=== PATIENT | male | born 1975 | race African-American/Black ===

== ENCOUNTER 2018-12-02 08:02 | Inpatient (IN) | payer OTHER ==
[2018-12-01 12:15] LABS: BASOPHILS % 0.3 % (0.0-1.0); HEMATOCRIT 41.2 % (38.2-49.6); HEMOGLOBIN 13.2 g/dL (14.0-18.0); LYMPHOCYTES # (AUTO) 0.5 (1.0-3.2); LYMPHOCYTES % 4.4 % (18.0-39.1); MEAN CORPUSCULAR HEMOGLOBIN 26.3 pg (28-32); MEAN CORPUSCULAR VOLUME 82.2 fL (81-99); MONOCYTES # (AUTO) 0.2 (0.2-0.8); MONOCYTES % 2.1 % (4.4-11.3); NEUTROPHILS # (AUTO) 9.6 (2.1-6.9); NEUTROPHILS % 92.7 % (38.7-80.0); PLATELET COUNT 215 x10e3/uL (140-360); RED BLOOD COUNT 5.01 x10e6/uL (4.3-5.7)
[~2018-12-02] VITALS: Ht 167.6 cm; Wt 70.1 kg
[~2018-12-02 08:02] MED LIST: BACITRACIN 50,000 UNIT VIAL ONE; CARVEDILOL25 MG PO; NORCO 10-325 T1 EACH PO; PANTOPRAZOLE SO40 MG PO; PREDNISONE20 MG PO; ROPIVACAINE 246.25 MG, EPINEPHRINE HCL 1:1000 1ML 0.5 MG, CLONIDINE HCL 0.08 MG, KETORO... INJ ONE; SODIUM CHLORIDE 0.9% 500ML 500 ML ONE; TRANEXAMIC ACID 1,000 MG/10 ML ML ONE; VANCOMYCIN HCL 500 MG ONE
--- OUTSIDE RECORDS SUMMARY | 2018-12-02 08:04 | XMS REPORT | Clinical Summary ---
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 Name Role Phone PCP Unavailable Allergies No Known Allergies Medications No known medications Active Problems Problem Noted Date Left hip pain 08/08/2018 Avascular necrosis of bones of both hips 08/08/2018 Discoid lupus erythematosus 10/23/2017 Tobacco abuse Hyperlipidemia Encounters Care Team Description Date Type Specialty Jarred Villalta MD Left hip pain (Primary Dx); Avascular necrosis of bones of both hips 08/08/2018 Emergency Emergency Medicine after 12/01/2017 Family History Medical History Relation Name Comments Diabetes type II Mother Hypertension Mother Relation Name Status Comments Mother Social History Date Tobacco Use Types Packs/Day Years Used Current Every Day Smoker Cigarettes 0.1 5 Smokeless Tobacco: Never Used Tobacco Cessation: Ready to Quit: No; Counseling Given: Yes Comments: 1 pack per week Alcohol Use Drinks/Week oz/Week Comments No Sex Assigned at Date Recorded Not on file Industry Job Start Date Occupation Not on file Not on file Not on file Travel End Travel History Travel Start No recent travel history available. Last Filed Vital Signs Time Taken Vital Sign Reading 08/08/2018 9:37 PM CDT Blood Pressure 161/103 08/08/2018 9:37 PM CDT Pulse 65 08/08/2018 4:54 PM CDT Temperature 37.1 C (98.7 F) 08/08/2018 9:37 PM CDT Respiratory Rate 18 08/08/2018 9:37 PM CDT Oxygen Saturation 100% - Inhaled Oxygen - Concentration - Weight - - Height - - Body Mass Index - Plan of Treatment Health Maintenance Due Date Last Done Comments IMM Influenza Seasonal 07/28/2018 Oct to December (>/=19 yrs) Procedures Comments Procedure Name Priority Date/Time Associated Diagnosis XRAY HIP UNILATERAL 2/3 STAT 08/08/2018 Left hip pain VIEWS 7:14 PM CDT after 12/01/2017 Results * XRAY HIP UNILATERAL 2/3 VIEWS (08/08/2018 7:14 PM CDT) Impressions Performed At IMPRESSION: SMS 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 Signed By: Carlyn Ogden MD, 08/08/2018 7:22 PM Narrative Performed At EXAM:XRAY HIP UNILATERAL 2/3 VIEWS [facility] DATE:08/08/2018 7:14 PM INDICATION:severe left hip pain in patient on chronic prednisone COMPARISON:None DISCUSSION: There is loss of the hip joint space with sclerosis and partial collapse of the femoral head. No significant osteophyte formation. Sclerosis of the left acetabulum. There is collapse of the right femoral head. No acute fracture or dislocation. Procedure Note Interface, Rad/Mammog In - 08/08/2018 7:27 PM CDT EXAM:XRAY HIP UNILATERAL 2/3 VIEWS DATE:08/08/2018 7:14 PM INDICATION:severe left hip pain in patient on chronic prednisone COMPARISON:None DISCUSSION: There is loss of the hip joint space with sclerosis and partial collapse of the femoral head. No significant osteophyte formation. Sclerosis of the left acetabulum. There is collapse of the right femoral head. No acute fracture or dislocation. IMPRESSION IMPRESSION: 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 Signed By: Carlyn Ogden MD, 08/08/2018 7:22 PM Performing Organization Address City/State/Zipcode Phone Number [facility] after 12/01/2017 Insurance Type Payer Benefit Subscriber ID Effective Phone Address Plan / Dates Group [facility] xxxxxxxxx 2012-P [phone] [address] [facility] [id number] [place] [address]
--- OUTSIDE RECORDS SUMMARY | 2018-12-02 08:05 | XMS REPORT | Clinical Summary ---
Author Author RAVI [facility] Address Unknown Phone Unavailable Care Team Providers Care Support Teacher Name Role Phone Pcp, No PCP Unavailable Allergies No Known Allergies Medications End Date Status Medication Sig Dispensed Refills Start Date Active HYDROcodone-acetaminophen Take 1 tablet 0 (NORCO 10-325) 10-325 mg by mouth per tablet every 6 (six) hours as needed for Pain. Active hydrOXYzine (ATARAX) 25 Take 25 mg by 0 MG tablet mouth every 4 (four) hours as needed for Itching. Active lisinopril Take 40 mg by 0 (PRINIVIL,ZESTRIL) 40 MG mouth daily. tablet Active pantoprazole (PROTONIX) Take 40 mg by 0 40 MG tablet mouth daily. Active predniSONE (DELTASONE) 20 Take 20 mg by 0 MG tablet mouth daily Dose confirmed and verified with the patient.. Active carvedilol (COREG) 25 MG Take 25 mg by 0 tablet mouth 2 (two) 8 times daily with breakfast and dinner . Active DULoxetine (CYMBALTA) 30 Take 30 mg by 0 MG capsule mouth daily . 8 Active zolpidem (AMBIEN) 10 mg 10 mg every 0 tablet night as 8 needed . Active ALPRAZolam (XANAX) 2 MG Take 2 mg by 0 tablet mouth every night as needed for Anxiety . 01/21/2018 nystatin-triamcinolone Apply to 15 g 0 (MYCOLOG II) 100,000-0.1 affected area 7 unit/g-% cream daily. 08/22/2018 Discontinued predniSONE (DELTASONE) 20 Take 2 14 tablet 0 MG tablet tablets (40 7 mg total) by mouth daily. 06/29/2018 ibuprofen (ADVIL,MOTRIN) Take 1 tablet 21 tablet 0 800 MG tablet (800 mg 8 total) by mouth 3 (three) times daily for 10 days. 09/21/2018 acetaminophen (TYLENOL) Take 2 30 tablet 0 325 MG tablet tablets (650 8 mg total) by mouth every 4 (four) hours as needed for Fever (greater than 100.4F) for up to 30 days. 09/22/2018 aspirin 325 MG EC tablet Take 1 tablet 30 tablet 0 (325 mg 8 total) by mouth daily for 30 days. 09/01/2018 docusate sodium (COLACE) Take 1 20 capsule 0 100 MG capsule capsule (100 8 mg total) by mouth 2 (two) times daily for 10 days. 09/06/2018 methocarbamol (ROBAXIN) Take 1 tablet 60 tablet 0 500 MG tablet (500 mg 8 total) by mouth 4 (four) times daily for 15 days. 09/22/2018 multivitamin (THERAGRAN) Take 1 tablet 30 tablet 0 tablet by mouth 8 daily for 30 days. 09/11/2018 traMADol (ULTRAM) 50 mg Take 1 tablet 60 tablet 0 tablet (50 mg total) 8 by mouth every 6 (six) hours as needed for up to 20 days. 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 Chest pain 12/08/2015 Non-traumatic rhabdomyolysis 12/08/2015 Discoid lupus 06/05/2014 Hemoptysis 05/28/2014 Tobacco abuse 05/28/2014 Seizure disorder 05/28/2014 Rash 05/28/2014 Encounters Care Team Description Date Type Specialty Juan Alberto Fonseca MD Bilateral shoulder pain, unspecified chronicity (Primary Dx) 09/22/2018 Outside Orders Radiology Shelton Becerra MD 08/19/2018 Anesthesia Event FlakitaLorene keller MD REVISION,TOTAL HIP 08/19/2018 Surgery Koby Mccollum MD [place], Narendra, MD Pain of both hip joints (Primary Dx); Avascular necrosis (HCC); Closed fracture of left hip, initial encounter (HCC); Hematuria, unspecified type; Kidney stone 08/18/2018 Hospital General Internal Medicine - Encounter 08/22/2018 08/18/2018 Orders Only General Internal Medicine Juan Alberto Fonseca MD Low back pain, unspecified back pain laterality, unspecified chronicity, with sciatica presence unspecified 07/28/2018 Hospital Encounter Juan Alberto Fonseca MD Low back pain, unspecified back pain laterality, unspecified chronicity, with sciatica presence unspecified (Primary Dx) 07/25/2018 Outside Orders Central Scheduling Chapin Kim MD Acute pain of both shoulders (Primary Dx); Discoid lupus; Cigarette nicotine dependence with nicotine-induced disorder; Essential hypertension 06/19/2018 Emergency Emergency Medicine Juan Alberto Fonseca MD Low back pain with sciatica, sciatica laterality unspecified, unspecified back pain laterality, unspecified chronicity 03/05/2018 Hospital Radiology Encounter Juan Alberto Fonseca MD Low back pain with sciatica, sciatica laterality unspecified, unspecified back pain laterality, unspecified chronicity (Primary Dx); Left hip pain; Right hip pain 03/05/2018 Outside Orders Radiology 02/19/2018 Emergency Emergency Medicine after 12/01/2017 Family History Medical History Relation Name Comments Hypertension Mother Relation Name Status Comments Mother Social History Date Tobacco Use Types Packs/Day Years Used Current Some Day Smoker Cigarettes 0.5 5 Smokeless Tobacco: Never Used Tobacco Cessation: Ready to Quit: Yes Alcohol Use Drinks/Week oz/Week Comments No Sex Assigned at Date Recorded Not on file Industry Job Start Date Occupation Not on file Not on file Not on file Travel End Travel History Travel Start No recent travel history available. Last Filed Vital Signs Time Taken Vital Sign Reading 08/22/2018 12:00 PM CDT Blood Pressure 135/72 08/22/2018 12:00 PM CDT Pulse 81 08/22/2018 12:00 PM CDT Temperature 36.7 C (98.1 F) 08/22/2018 12:00 PM CDT Respiratory Rate 18 08/22/2018 12:00 PM CDT Oxygen Saturation 100% - Inhaled Oxygen - Concentration 08/18/2018 2:10 PM CDT Weight 74.8 kg (165 lb) 08/18/2018 2:10 PM CDT Height 167.6 cm (5' 6") 08/18/2018 2:10 PM CDT Body Mass Index 26.63 Plan of Treatment Not on file Implants Device Identifier Shelf Expiration Date Model / Serial / Lot Implanted Type Area Manufactur er 05/20/2023 1420-1087 / N/A / 7DN Scr Low Profile 6.5x25mm [id number] Fracture/F Left: Hip LULU:ST - Sn/A ixation CARLOS EDUARDO Implanted: Qty: 1 on 08/19/2018 by Lorene Lozano MD 05/20/2023 [id number] / N/A / 7DN Scr Low Profile 6.5x25mm [id number] Fracture/F Left: Hip LULU:ST - Sn/A ixation CARLOS EDUARDO Implanted: Qty: 1 on 08/19/2018 by Lorene Lozano MD 06/18/2023 702-04-52E / N/A / [id number] Trident Ii Tri Clusterhole 52e Joints Left: Hip LULU 702-04-52e - Sn/A ORTHO CAP Implanted: Qty: 1 on 08/19/2018 by Lorene Boggs MD 07/01/2023 623-00-36E / N/A / [id number] Insrt Trident X3 0deg 36mm Joints Left: Hip LULU:ST 623-00-36e - Sn/A CARLOS EDUARDO Implanted: Qty: 1 on 08/19/2018 by Lorene Lozano MD 05/19/2023 6570-0-136 / N/A / [id number] Head Fem Ceramic V40 36mm Joints Left: Hip LULU:ST 6570-0-136 - Sn/A CARLOS EDUARDO Implanted: Qty: 1 on 08/19/2018 by Lorene Lozano MD 06/22/2023 [id number] / N/A / [id number] Hip Stem Accolade Ii 127d 5 - Sn/A Joints Left: Hip LULU:ST Implanted: Qty: 1 on 08/19/2018 by Lorene Khalil MD ORTHOPAEDI CS Procedures Comments Procedure Name Priority Date/Time Associated Diagnosis RHYTHM STRIP - SCAN 08/25/2018 1:30 PM CDT TRANSFUSION SERVICE 08/24/2018 REPORT - SCAN 5:50 PM CDT PREPARE RBC Routine 08/22/2018 3:26 PM CDT CBC (HEMOGRAM ONLY) Routine 08/22/2018 5:12 AM CDT (CELLAVISION MANUAL DIFF) Routine 08/21/2018 3:37 AM CDT CBC W/PLT COUNT & AUTO Routine 08/21/2018 DIFFERENTIAL 3:37 AM CDT CBC W/PLT COUNT & AUTO Routine 08/21/2018 DIFFERENTIAL 3:37 AM CDT BASIC METABOLIC PANEL (7) Routine 08/21/2018 3:37 AM CDT TRANSTHORACIC ECHO FOR Routine 08/20/2018 RESULTS 8:49 PM CDT TRANSFUSION SERVICE 08/20/2018 REPORT - SCAN 6:02 PM CDT CBC W/PLT COUNT & AUTO Routine 08/20/2018 DIFFERENTIAL 3:31 AM CDT CBC W/PLT COUNT & AUTO Routine 08/20/2018 DIFFERENTIAL 3:31 AM CDT BASIC METABOLIC PANEL (7) Routine 08/20/2018 3:31 AM CDT XR PELVIS 1 OR 2 VIEWS STAT 08/19/2018 3:42 PM CDT XR PELVIS 1 OR 2 VIEWS Routine 08/19/2018 1:47 PM CDT TISSUE EXAM AP Routine 08/19/2018 1:24 PM CDT REVISION,TOTAL HIP 08/19/2018 Closed fracture of left 12:15 PM CDT hip, initial encounter (HCC) Special Needs REQ:TF OTHER CASES TYPE AND SCREEN, Routine 08/19/2018 AUTOMATED 4:43 AM CDT ECG 12-LEAD Routine 08/18/2018 6:04 PM CDT Procedure Note - Interface, External Ris In - 08/18/2018 7:02 PM CDT Ventricula r Rate 74 BPM Atrial Rate 74 BPM P-R Interval 114 ms QRS Duration 80 ms Q-T Interval 384 ms QTC Calculatio n(Bazett) 426 ms P [place] 58 degrees R [place] 41 degrees T [place] 32 degrees Normal sinus rhythm Normal ECG When compared with ECG of 6 07:36, No significan t change was found ECG 12-LEAD STAT 08/18/2018 6:04 PM CDT 2D ECHO W/ DOPPLER Routine 08/18/2018 (CW/PW/COLOR) 5:50 PM CDT XR CHEST 1 VIEW STAT 08/18/2018 PORTABLE/BEDSIDE 5:45 PM CDT PT/APTT STAT 08/18/2018 4:[address] ABDOMEN/PELVIS WITHOUT STAT 08/18/2018 IV CONTRAST 4:01 PM CDT URINALYSIS W/ REFLEX STAT 08/18/2018 URINE CULTURE 3:15 PM CDT URINE CULTURE STAT 08/18/2018 3:15 PM CDT CBC W/PLT COUNT & AUTO STAT 08/18/2018 DIFFERENTIAL 2:51 PM CDT BASIC METABOLIC PANEL (7) STAT 08/18/2018 2:51 PM CDT CBC W/PLT COUNT & AUTO STAT 08/18/2018 DIFFERENTIAL 2:51 PM CDT XR DXA BONE DENSITY STUDY Routine 07/28/2018 Low back pain, 9:42 AM CDT unspecified back pain laterality, unspecified chronicity, with sciatica presence unspecified XR SHOULDER RIGHT STAT 06/19/2018 COMPLETE MIN 2 VWS 1:12 PM CDT XR SHOULDER LEFT COMPLETE STAT 06/19/2018 MIN 2 VIEWS 1:07 PM CDT XR HIP RIGHT 2 VIEW Routine 03/05/2018 Right hip pain 12:21 PM CDT XR SPINE LUMBAR COMPLETE Routine 03/05/2018 MIN 4 VIEWS 12:21 PM CDT XR HIP LEFT 2 VIEW Routine 03/05/2018 Left hip pain 12:21 PM CDT after 12/01/2017 Results * RHYTHM STRIP - SCAN (08/25/2018 1:30 PM CDT) Narrative Performed At * TRANSFUSION SERVICE REPORT - SCAN (08/24/2018 5:50 PM CDT) Only the most recent of 2 results within the time period is included. Narrative Performed At * Prepare RBC (08/22/2018 3:26 PM CDT) Unit ABO O Pos [facility] [place] UNIT NUMBER [id number] [facility] [place] Status WORK IN PROGRESS [facility] [place] Blood Bank Product RED BLOOD CELLS [facility] [place] PRODUCT CODE [id number] [facility]AFET[facility] TX Unit ABO O Neg SAFETRACE TX UNIT NUMBER [id number] [facility] TX Status WORK IN PROGRESS [facility]ET[facility] TX Blood Bank Product RED BLOOD CELLS [facility] [place] PRODUCT CODE [id number] [facility] CROSSMATCH COMPATIBLE S[facility]ETR[facility] TX CROSSMATCH COMPATIBLE SAFETRACE TX Performing Organization Address City/State/[facility] Phone Number [facility] [place] * CBC (Hemogram only) (08/22/2018 5:12 AM CDT) WBC 12.0 (H) 3.5 - 10.5 K/L [facility] RBC 3.57 (L) 4.63 - 6.08 M/L [facility] Hemoglobin 9.9 (L) 13.7 - 17.5 GM/DL [facility] Hematocrit 30.7 (L) 40.1 - 51.0 % [facility] MCV 86.0 79.0 - 92.2 fL [facility] MCH 27.7 25.7 - 32.2 pg [facility] MCHC 32.2 (L) 32.3 - 36.5 GM/DL [facility] RDW 13.4 11.6 - 14.4 % [facility] Platelets 263 150 - 450 K/CU MM [facility] MPV 9.5 9.4 - 12.4 fL [facility] nRBC 0 0 - 0 /100 WBC [facility] Specimen Blood Performing Organization Address City/State/Zipcode Phone Number [facility] [address] [place] [address] [facility] * Manual Differential (08/21/2018 3:37 AM CDT) % Neutros 79 % [facility] % Lymphs 15 % [facility] % Monos 5 % [facility] % Atypical Lymphs 1 (H) 0 - 0 % [facility] # Neutros 9.24 (H) 1.78 - 5.38 K/ul [facility] # Lymphs 1.76 1.32 - 3.57 K/ul [facility] # Monos 0.59 0.30 - 0.82 K/uL [facility] # Atypical Lymphs 0.12 (H) 0.00 - 0.00 K/uL [facility] Total Counted 100 [facility] nRBC (manual) 2 (H) 0 - 0 /100 WBC [facility] WBC Morphology Normal [facility] Large Platelet Present [facility] Polychromasia 1+ few [facility] Hypochromia 1+ few [facility] Artifact Present [facility] Platelet Conc Adequate [facility] Specimen Blood - Arm, Right Narrative Performed At Received comment: [facility] User comments: [facility] Slide comments: Performing Organization Address City/[facility] Cent[facility] Phone Number [facility] [address] [place] [address] [facility] * CBC with platelet count + automated diff (08/21/2018 3:37 AM CDT) Only the most recent of 3 results within the time period is included. WBC 11.7 (H) 3.5 - 10.5 K/L [facility] RBC 3.45 (L) 4.63 - 6.08 M/L [facility] Hemoglobin 9.5 (L) 13.7 - 17.5 GM/DL [facility] Hematocrit 29.8 (L) 40.1 - 51.0 % [facility] MCV 86.4 79.0 - 92.2 fL [facility] MCH 27.5 25.7 - 32.2 pg [facility] MCHC 31.9 (L) 32.3 - 36.5 GM/DL [facility] RDW 13.5 11.6 - 14.4 % [facility] Platelets 234 150 - 450 K/CU MM [facility] MPV 9.1 (L) 9.4 - 12.4 fL [facility] nRBC 0 0 - 0 /100 WBC [facility] Specimen Blood - Arm, Right Performing Organization Address City/[facility]/Zipcode Phone Number [facility] [address] [place] [address] [facility] * Basic Metabolic Panel (08/21/2018 3:37 AM CDT) Only the most recent of 3 results within the time period is included. Sodium 139 136 - 145 meq/L [facility] Potassium 4.1 3.5 - 5.1 meq/L [facility] Chloride 108 (H) 98 - 107 meq/L [facility] CO2 25 22 - 29 meq/L [facility] BUN 11 7 - 21 mg/dL [facility] Creatinine 0.78 0.57 - 1.25 mg/dL [facility] Glucose 86 70 - 105 mg/dL [facility] Calcium 9.3 8.4 - 10.2 mg/dL [facility] EGFR 132Comment: ESTIMATED GFR IS mL/min/1.[address] [facility] NOT ACCURATE CREATININE [facility] CLEARANCE IN PREDICTING GLOMERULAR FILTRATION RATE. ESTIMATED GFR IS NOT APPLICABLE FOR DIALYSIS PATIENTS. Specimen Blood - Arm, Right Performing Organization Address City/State/Zipcode Phone Number [facility] [address] [place] [address] [facility] * Transthoracic echo result (08/20/2018 8:49 PM CDT) Ejection Fraction [facility] ECHO HEART[facility] Narrative Performed At Transthoracic Echocardiography Report (TTE) [facility] ECHO [facility]ARTLAB Demographics [facility] Patient Name RACHAEL Vera Date of Study 08/20/2018 [id number] Male Visit Number [id number] Room Number Number Date of Birth1975Referring Physician 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 Clinical History HGB 10.5 HCT 32.3 % HTN, LUPUS, SEIZURES, THROMBCYTOPENIA, SMOKER Height: 66 inches Weight: 74.84 kg (165 lbs) BSA: 1.84 m^2 BMI: 26.63 kg/m^2 HR: 71 bpm BP: 106/64 mmHg Summary The left ventricle is chamber size (by vol index) is normal (male - LVED vol - 34-74ml/m2). Normal LV wall thickness. All of the LV segments contract normally . Global LV systolic function normal . Normal diastolic function. Estimated peak systolic pressure is at least 30-35 mmHg. No significant pericardial effusion is visualized. Signature Findings Rhythm/BPRegular sinus rhythm during the exam. Left Ventricle The left ventricle is chamber size (by vol index) is normal (male - LVED vol - 34-74ml/m2). Normal LV wall thickness. All of the LV segments contract normally . Global LV systolic function normal . Normal diastolic function. Left AtriumLA size is normal . Right VentricleThe right ventricular chamber size and systolic function are within normal limits. Right Atrium RA size is normal. Atrial SeptumA patent foramen ovale (PFO) is not demonstrated by color Doppler. Normal interatrial septum by available views. Aortic Valve Normal AoV structure and function by limited views and Doppler. Mitral Valve Mild MV leaflet thickening. Trace mitral regurgitation. Tricuspid ValveTV structure is normal. A trace of tricuspid regurgitation. Estimated peak systolic pressure is at least 30-35 mmHg. Pulmonic Valve Normal PV structure and function by limited views and Doppler. AortaAortic root size (SInus of Valsalva diameter) is normal . The aortic sinotubular junction appears normal . PericardiumNo significant pericardial effusion is visualized. IVC/SVC/PA/PV/PleuralThe inferior vena cava size is normal . The estimated RA pressure by IVC dynamics 5-10mmHg . Chambers/Structures Left Atrium LA Volume: 54.71 ml LA Area: 21.37 cm^2 LA Vol. Index: 30 ml/m^2 Left Ventricle LVIDd: 4.19 cm LVIDs: 3.3 cm LV Septum Diastolic: 0.82 cm LV Septum Systolic: 1.13 cm LV FS: 21.2 % LV PW Diastolic: 0.92 cm LV PW Systolic: 1.02 cm LVEDVI: 38 ml/m^2 LVEDV [place]'s:69.51 mlLVESVI: 13 ml/m^2 LVESV [place]'s:23.36 ml LVEF [place]'s: 66.4 % LVOT Diameter: 2.13 cm Aorta Ascending Aorta: 2.96 cm Doppler/Quantitative Measurements Mitral Valve MV Peak E-Wave: 0.96 m/s MV Peak A-Wave: 0.76 m/s E/A Ratio: 1.27 Mean Velocity: 0.58 m/sPeak Gradient: 3.71 mmHg Mean Gradient: 1.58 mmHg Deceleration Time: 300.9 msec Area (continuity): 2.54 cm^2 MV VTI: 28.78 cm MV Ko. Peak: 1.07 m/s Tissue Doppler E' Septal Velocity: 0.1 m/sE/E': 9.9 Aortic Valve Peak Velocity: 1.58 m/sMean Velocity: 1.1 m/s Peak Gradient: 10 mmHg Mean Gradient: 5.45 mmHg AV Area (continuity): 2.68 cm^2 AV VTI: 27.28 cm AV DVI: 0.75 LVOT Peak Velocity: 1.23 m/s Peak Gradient: 6.08 mmHg Mean Velocity: 0.76 m/s Mean Gradient: 2.81 mmHg LVOT Diameter: 2.13 cmLVOT VTI: 20.55 cm LVOT Area: 3.56 cm^2LVOT SV:73.19 ml LVOT CO: 5.2 l/minLVOT CI: 2.83 l/min/m^2 Tricuspid Valve TR Velocity: 2.45 m/s TR Gradient: 24.04 mmHg Procedure Note Interface, External Ris In - 08/22/2018 11:39 AM CDT Transthoracic Echocardiography Report (TTE) Demographics Patient Name RACHAEL Vera Date of Study 08/20/2018 Gender Male Visit Number [id number] Race Unknown Room Number Number Date of 1975 Referring Physician Age 43 year(s) [employer] Caleb Aleman Interpreting Wilmer Diego, Physician Fellow Aimee ROSS Procedure Type of Study TTE procedure(Routine) Indications:Suspected hypertensive heart disease. Clinical History HGB 10.5 HCT 32.3 % HTN, LUPUS, SEIZURES, THROMBCYTOPENIA, SMOKER Height: 66 inches Weight: 74.84 kg (165 lbs) BSA: 1.84 m^2 BMI: 26.63 kg/m^2 HR: 71 bpm BP: 106/64 mmHg Summary The left ventricle is chamber size (by vol index) is normal (male - LVED vol - 34-74ml/m2). Normal LV wall thickness. All of the LV segments contract normally . Global LV systolic function normal . Normal diastolic function. Estimated peak systolic pressure is at least 30-35 mmHg. No significant pericardial effusion is visualized. Signature Findings Rhythm/BP Regular sinus rhythm during the exam. Left Ventricle The left ventricle is chamber size (by vol index) is normal (male - LVED vol - 34-74ml/m2). Normal LV wall thickness. All of the LV segments contract normally . Global LV systolic function normal . Normal diastolic function. Left Atrium LA size is normal . Right Ventricle The right ventricular chamber size and systolic function are within normal limits. Right Atrium RA size is normal. Atrial Septum A patent foramen ovale (PFO) is not demonstrated by color Doppler. Normal interatrial septum by available views. Aortic Valve Normal AoV structure and function by limited views and Doppler. Mitral Valve Mild MV leaflet thickening. Trace mitral regurgitation. Tricuspid Valve TV structure is normal. A trace of tricuspid regurgitation. Estimated peak systolic pressure is at least 30-35 mmHg. Pulmonic Valve Normal PV structure and function by limited views and Doppler. Aorta Aortic root size (SInus of Valsalva diameter) is normal . The aortic sinotubular junction appears normal . Pericardium No significant pericardial effusion is visualized. IVC/SVC/PA/PV/Pleural The inferior vena cava size is normal . The estimated RA pressure by IVC dynamics 5-10mmHg . Chambers/Structures Left Atrium LA Volume: 54.71 ml LA Area: 21.37 cm^2 LA Vol. Index: 30 ml/m^2 Left Ventricle LVIDd: 4.19 cm LVIDs: 3.3 cm LV Septum Diastolic: 0.82 cm LV Septum Systolic: 1.13 cm LV FS: 21.2 % LV PW Diastolic: 0.92 cm LV PW Systolic: 1.02 cm LVEDVI: 38 ml/m^2 LVEDV [place]'s:69.51 ml LVESVI: 13 ml/m^2 LVESV [place]'s:23.36 ml LVEF [place]'s: 66.4 % LVOT Diameter: 2.13 cm Aorta Ascending Aorta: 2.96 cm Doppler/Quantitative Measurements Mitral Valve MV Peak E-Wave: 0.96 m/s MV Peak A-Wave: 0.76 m/s E/A Ratio: 1.27 Mean Velocity: 0.58 m/s Peak Gradient: 3.71 mmHg Mean Gradient: 1.58 mmHg Deceleration Time: 300.9 msec Area (continuity): 2.54 cm^2 MV VTI: 28.78 cm MV Ko. Peak: 1.07 m/s Tissue Doppler E' Septal Velocity: 0.1 m/s E/E': 9.9 Aortic Valve Peak Velocity: 1.58 m/s Mean Velocity: 1.1 m/s Peak Gradient: 10 mmHg Mean Gradient: 5.45 mmHg AV Area (continuity): 2.68 cm^2 AV VTI: 27.28 cm AV DVI: 0.75 LVOT Peak Velocity: 1.23 m/s Peak Gradient: 6.08 mmHg Mean Velocity: 0.76 m/s Mean Gradient: 2.81 mmHg LVOT Diameter: 2.13 cm LVOT VTI: 20.55 cm LVOT Area: 3.56 cm^2 LVOT SV:73.19 ml LVOT CO: 5.2 l/min LVOT CI: 2.83 l/min/m^2 Tricuspid Valve TR Velocity: 2.45 m/s TR Gradient: 24.04 mmHg Performing Organization Address City/State/Zipcode Phone Number [facility] ECHO HEART[facility] CP[facility] * XR pelvis 1 or 2 views (08/19/2018 3:42 PM CDT) Only the most recent of 2 results within the time period is included. Narrative Performed At FINAL REPORT GE RIS TECHNIQUE: Frontal radiographs of the pelvis as well as the left hip dated 08/19/2018 HISTORY: Postop total hip COMPARISON: Radiograph of the pelvis performed earlier the same day Impression: The patient is status post total left hip arthroplasty with post surgical fluid and air seen in the soft tissues. Severe degenerative changes of the right femoral head are visualized. No fracture or dislocation. Bones osteopenia for patient's stated age. Signed: Mell Law MD Report Verified Date/Time:08/19/2018 16:04:24 Reading Location: [facility] Radiology Reading Room Procedure Note Interface, External Ris In - 08/19/2018 4:06 PM CDT FINAL REPORT TECHNIQUE: Frontal radiographs of the pelvis as well as the left hip dated 08/19/2018 HISTORY: Postop total hip COMPARISON: Radiograph of the pelvis performed earlier the same day Impression: The patient is status post total left hip arthroplasty with post surgical fluid and air seen in the soft tissues. Severe degenerative changes of the right femoral head are visualized. No fracture or dislocation. Bones osteopenia for patient's stated age. Signed: Mell Law MD Report Verified Date/Time: 08/19/2018 16:04:24 Reading Location: [facility] Radiology Reading Room Performing Organization Address City/State/Zipcode Phone Number RIS * Tissue Exam (08/19/2018 1:24 PM CDT) Case Report Surgical Pathology [facility] Report [facility] Case: [id number] Authorizing Provider:Lorene Boggs, Collected: 08/19/2018 1324 MD Ordering Location: [facility] PERIOPERATIVE Received: 08/19/2018 1453 SERVICES Pathologist: Juan Carlos Isaac MD Specimen:Femoral Head,Left Hip DIAGNOSIS PART A LEFT FEMORAL HEAD, [facility] ARTHROPLASTY FOR FRACTURE: [facility] DEGENERATIVE, PARTIALLY NECROTIC CHANGES IN BONE AND CARTILAGE. REACTIVE SYNOVIAL TISSUE. Signing Pathologist Direct Phone Line: [phone] CPT Code(s) 29073, [id number] [facility] CLINICAL HISTORY Left hip fracture [facility] SPECIMEN SOURCE Left femoral head [facility] GROSS DESCRIPTION The specimen is received in a [facility] fluidless container labeled [facility] with patient's information labeled "left femoral head" and consists of a distorted taylor-red femoral head measuring 4 x 3 x 3 cm. The base is sharply amputated. The articular surface has distinct osteophyte formation and pitting with eburnation. The specimen is flattened. Section code: A1 and A3, bone submitted for decalcification; A4, soft tissue and bone submitted for decalcification. CG/pl MICROSCOPIC DESCRIPTION PERFORMED. [facility] Specimen Tissue - Femoral Head,Left Hip Performing Organization Address [facility] Cent[facility]ode Phone Number [address] [address] [phone] [place] [address] * Type and screen, automated (08/19/2018 4:43 AM CDT) ABO/RH AUTOMATED (BEAKER) O POSITIVE [facility] Ab Scrn NEGATIVE [facility] Specimen Blood Performing Organization Address City/[facility]/Zipcode Phone Number [address] [address] [facility] * ECG 12 lead (08/18/2018 6:04 PM CDT) Narrative Performed At Ventricular Rate 74 BPM GE MUSE Atrial Rate 74 BPM P-R Interval 114 ms QRS Duration 80 ms Q-T Interval 384 ms QTC Calculation(Bazett) 426 ms P [place] 58 degrees R [place] 41 degrees T [place] 32 degrees Normal sinus rhythm Normal ECG When compared with ECG of 08-DEC-2015 07:36, No significant change was found Confirmed by Freida TERRELL MICHAEL ([id number]) on 08/18/2018 10:17:45 PM Procedure Note Interface, External Ris In - 08/18/2018 10:17 PM CDT Ventricular Rate 74 BPM Atrial Rate 74 BPM P-R Interval 114 ms QRS Duration 80 ms Q-T Interval 384 ms QTC Calculation(Bazett) 426 ms P [place] 58 degrees R [place] 41 degrees T [place] 32 degrees Normal sinus rhythm Normal ECG When compared with ECG of 08-DEC-2015 07:36, No significant change was found Confirmed by Freida TERRELL MICHAEL ([id number]) on 08/18/2018 10:17:45 PM Performing Organization Address City/[facility] Phone Number GE MUSE * XR chest 1 view portable / bedside (08/18/2018 5:45 PM CDT) Narrative Performed At FINAL REPORT GE RIS TECHNIQUE: Single view of the chest. COMPARISON: 02/03/2016 FINDINGS: The cardiac silhouette is within normal limits.Mediastinum is unremarkable. Lungs are clear.Osseous structures appear unremarkable. Irving project over the right neck presumably external to the patient. IMPRESSION: No acute cardiopulmonary disease. Signed: Shiraz Wong MD Report Verified Date/Time:08/18/2018 18:44:14 Reading Location: [facility] Reading Room Procedure Note Interface, External Ris In - 08/18/2018 6:46 PM CDT FINAL REPORT TECHNIQUE: Single view of the chest. COMPARISON: 02/03/2016 FINDINGS: The cardiac silhouette is within normal limits. Mediastinum is unremarkable. Lungs are clear. Osseous structures appear unremarkable. Irving project over the right neck presumably external to the patient. IMPRESSION: No acute cardiopulmonary disease. Signed: Shiraz Wong MD Report Verified Date/Time: 08/18/2018 18:44:14 Reading Location: [facility] Mammo Reading Room Performing Organization Address City/[facility] Centercooh Phone Number GE RIS * PT/aPTT (08/18/2018 4:40 PM CDT) [facility] 14.8 (H) 11.7 - 14.7 seconds [facility] INR 1.2 <=5.9 [facility] PTT 32.3 22.5 - 36.0 seconds [facility] Specimen Blood Narrative Performed At RECOMMENDED COUMADIN/WARFARIN INR THERAPY RANGES [facility] STANDARD DOSE: 2.0 - 3.0 Includes: PROPHYLAXIS for venous thrombosis, [facility] systemic embolization; TREATMENT for venous thrombosis and/or pulmonary embolus. HIGH RISK: Target INR is 2.5-3.5 for patients with mechanical heart valves. Performing Organization Address City/State/Zipcode Phone Number [facility] [address] [place] [address] [facility] * CT abdomen/pelvis without iv contrast (08/18/2018 4:01 PM CDT) Narrative Performed At FINAL REPORT [facility] CT abdomen and pelvis without intravenous contrast. INDICATION: Abdominal pain, unspecified COMPARISON: No prior studies available for comparison. TECHNIQUE: Multiple contiguous transaxial images of the abdomen and pelvis were obtained without intravenous contrast.This exam was performed according to our departmental dose optimization program which includes automated exposure control, adjustment of the mA and/or kV according to patient size and/or use of iterative reconstructive technique. FINDINGS: Lack of intravenous contrast limits evaluation of the parenchymal and vascular organs. The lung bases are clear. The osseous structures demonstrate osteonecrosis of the bilateral femoral heads which appear markedly flattened with hip joint effusions and synovitis. There is superimposed osteoarthritis. There is an age indeterminate fracture of the left femoral head and neck. The unenhanced liver, spleen, pancreas, and adrenal glands are unremarkable. The gallbladder is unremarkable. There is no biliary dilatation. The stomach is underdistended limiting its evaluation. There is a 4 mm stone in the right distal ureter without significant dilatation of the right collecting system. Additional small nonobstructing right renal calculi are seen measuring up to 2 mm in the right lower pole. The urinary bladder is underdistended with questionable wall thickening which can be correlated with urinalysis. There is no bowel obstruction or perforation. There is mild colonic diverticulosis. The appendix appear normal. There are vascular calcifications. There is no fluid collection or lymphadenopathy. IMPRESSION: 1. 4 mm right distal ureteral stone without significant dilatation of the right collecting system. Additional nonobstructing right renal calculi. 2. Wall thickening of the urinary bladder can be correlated with urinalysis. 3. 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 Fracture of the left femoral head and neck. Signed: Cameron Zuñiga MD Report Verified Date/Time:08/18/2018 16:12:06 Reading Location: [facility] Radiology Reading Room Procedure Note Interface, External Ris In - 08/18/2018 4:14 PM CDT FINAL REPORT CT abdomen and pelvis without intravenous contrast. INDICATION: Abdominal pain, unspecified COMPARISON: No prior studies available for comparison. TECHNIQUE: Multiple contiguous transaxial images of the abdomen and pelvis were obtained without intravenous contrast. This exam was performed according to our departmental dose optimization program which includes automated exposure control, adjustment of the mA and/or kV according to patient size and/or use of iterative reconstructive technique. FINDINGS: Lack of intravenous contrast limits evaluation of the parenchymal and vascular organs. The lung bases are clear. The osseous structures demonstrate osteonecrosis of the bilateral femoral heads which appear markedly flattened with hip joint effusions and synovitis. There is superimposed osteoarthritis. There is an age indeterminate fracture of the left femoral head and neck. The unenhanced liver, spleen, pancreas, and adrenal glands are unremarkable. The gallbladder is unremarkable. There is no biliary dilatation. The stomach is underdistended limiting its evaluation. There is a 4 mm stone in the right distal ureter without significant dilatation of the right collecting system. Additional small nonobstructing right renal calculi are seen measuring up to 2 mm in the right lower pole. The urinary bladder is underdistended with questionable wall thickening which can be correlated with urinalysis. There is no bowel obstruction or perforation. There is mild colonic diverticulosis. The appendix appear normal. There are vascular calcifications. There is no fluid collection or lymphadenopathy. IMPRESSION: 1. 4 mm right distal ureteral stone without significant dilatation of the right collecting system. Additional nonobstructing right renal calculi. 2. Wall thickening of the urinary bladder can be correlated with urinalysis. 3. 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 Fracture of the left femoral head and neck. Signed: Cameron Zuñiga MD Report Verified Date/Time: 08/18/2018 16:12:06 Reading Location: [facility] Radiology Reading Room Performing Organization Address City/[facility]/Zipcode Phone Number GE RIS * Urinalysis w/Microscopic + Reflex to Culture (08/18/2018 3:15 PM CDT) Color, UA Yellow [facility] Clarity, UA Hazy [facility] Specific [place], UA 1.018 1.001 - 1.035 [facility] pH, UA 5.5 5.0 - 8.0 [facility] Protein, UA 20 mg/dL (A) Negative [facility] Glucose, UA Negative Negative [facility] Ketones, UA Trace (A) Negative [facility] Bilirubin, UA Negative Negative [facility] Blood, UA Negative Negative [facility] Nitrite, UA Negative Negative [facility] Leukocytes, UA Negative Negative [facility] Urobilinogen, UA 3.0 (H) 0.2 - 1.0 mg/dL [facility] RBC, UA 6 /HPF [facility] WBC, UA 10 /HPF [facility] Mucus Moderate [facility] Crystals, Urine Occasional [facility] Yeast Few [facility] Specimen Source [facility] Specimen Urine - Urine, Voided Performing Organization Address City/[facility]/Zipcode Phone Number [facility] [address] [place] [address] [facility] * Urine culture (08/18/2018 3:15 PM CDT) Result 10-19,000 col/mL [facility] Beta-hemolytic streptococcus [facility] group B, by serological grouping (A) Specimen Urine - Urine, Voided Performing Organization Address City/State/Zipcode Phone Number [facility] [address] [place] [address] [facility] * XR DXA Bone Density Study (07/28/2018 9:42 AM CDT) Narrative Performed At FINAL REPORT [facility] Bone mineral density study 07/28/2018. CLINICAL INDICATION: M54.5. Low back pain COMPARISON: None available FINDINGS: Evaluation of the left and right femoral necks and lumbar spine was performed utilizing a bone densitometer. Data reflect young adult matched T-scores and age-matched Z scores. IMPRESSION: The left femoral neck bone mineral density is 1.030gm/cm2, the T-score is -0.3, and the Z-score is -1.1. The right femoral neck total bone mineral density is 1.080gm/cm2, the T-score is 0.1, and the Z-score is -0.7. The lumbar spine total bone mineral density is 0.898gm/cm2, the T-score is -2.7, and the Z-score is -3.6. This is suggestive of osteoporosis. Signed: Erika Smith MD Report Verified Date/Time:07/28/2018 10:46:13 Reading Location: [facility] Mammo Reading Room Procedure Note Interface, External Ris In - 07/28/2018 10:48 AM CDT FINAL REPORT Bone mineral density study 07/28/2018. CLINICAL INDICATION: M54.5. Low back pain COMPARISON: None available FINDINGS: Evaluation of the left and right femoral necks and lumbar spine was performed utilizing a bone densitometer. Data reflect young adult matched T-scores and age-matched Z scores. IMPRESSION: The left femoral neck bone mineral density is 1.030gm/cm2, the T-score is -0.3, and the Z-score is -1.1. The right femoral neck total bone mineral density is 1.080gm/cm2, the T-score is 0.1, and the Z-score is -0.7. The lumbar spine total bone mineral density is 0.898gm/cm2, the T-score is -2.7, and the Z-score is -3.6. This is suggestive of osteoporosis. Signed: Erika Smith MD Report Verified Date/Time: 07/28/2018 10:46:13 [facility] Performing Organization Address [facility] Phone Number GE RIS * XR shoulder complete 2 views min right (06/19/2018 1:12 PM CDT) Narrative Performed At FINAL REPORT GE RIS TECHNIQUE: Four views of the right shoulder and three views of the left shoulder dated 06/19/2018 HISTORY: Arm pain COMPARISON: None. FINDINGS: No fracture or dislocation in either shoulder. Bones are normal in density. Joint spaces are unremarkable in appearance. No bone erosion or soft tissue nodule seen. No radiodense foreign body or subcutaneous emphysema. IMPRESSION: No fracture or dislocation in either shoulder. Signed: Mell Law MD Report Verified Date/Time:06/19/2018 13:27:48 Reading Location: [facility] Radiology Reading Room Procedure Note Interface, External Ris In - 06/19/2018 1:30 PM CDT FINAL REPORT TECHNIQUE: Four views of the right shoulder and three views of the left shoulder dated 06/19/2018 HISTORY: Arm pain COMPARISON: None. FINDINGS: No fracture or dislocation in either shoulder. Bones are normal in density. Joint spaces are unremarkable in appearance. No bone erosion or soft tissue nodule seen. No radiodense foreign body or subcutaneous emphysema. IMPRESSION: No fracture or dislocation in either shoulder. Signed: Mell Law MD Report Verified Date/Time: 06/19/2018 13:27:48 Reading Location: [facility] Radiology Reading Room Performing Organization Address [facility] Phone Number GE RIS * XR shoulder complete 2 views min left (06/19/2018 1:07 PM CDT) Narrative Performed At FINAL REPORT GE RIS TECHNIQUE: Four views of the right shoulder and three views of the left shoulder dated 06/19/2018 HISTORY: Arm pain COMPARISON: None. FINDINGS: No fracture or dislocation in either shoulder. Bones are normal in density. Joint spaces are unremarkable in appearance. No bone erosion or soft tissue nodule seen. No radiodense foreign body or subcutaneous emphysema. IMPRESSION: No fracture or dislocation in either shoulder. Signed: Mell Law MD Report Verified Date/Time:06/19/2018 13:27:48 Reading Location: [facility] Radiology Reading Room Procedure Note Interface, External Ris In - 06/19/2018 1:30 PM CDT FINAL REPORT TECHNIQUE: Four views of the right shoulder and three views of the left shoulder dated 06/19/2018 HISTORY: Arm pain COMPARISON: None. FINDINGS: No fracture or dislocation in either shoulder. Bones are normal in density. Joint spaces are unremarkable in appearance. No bone erosion or soft tissue nodule seen. No radiodense foreign body or subcutaneous emphysema. IMPRESSION: No fracture or dislocation in either shoulder. Signed: Mell Law MD Report Verified Date/Time: 06/19/2018 13:27:48 Reading Location: [facility] Radiology Reading Room Performing Organization Address City/State/Zipcode Phone Number GE RIS * XR hip 2 views right (03/05/2018 12:21 PM CDT) Narrative Performed At FINAL REPORT [facility] Lumbar spine five views, right hip two views, and left hip two views CLINICAL HISTORY: pain in left hip COMPARISON: None available IMPRESSION: There is no fracture or traumatic malalignment. There are advanced degenerative changes in both femoral acetabular joints, with remodeling of the right femoral head. 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 The remaining visualized joint spaces are intact. There is no remarkable intervertebral disc space narrowing in the lumbar spine. The soft tissue is unremarkable. Signed: Duke Watson MD Report Verified Date/Time:03/05/2018 12:24:44 Reading Location: [facility] Radiology Reading Room Procedure Note Interface, External Ris In - 03/05/2018 12:26 PM CDT FINAL REPORT Lumbar spine five views, right hip two views, and left hip two views CLINICAL HISTORY: pain in left hip COMPARISON: None available IMPRESSION: There is no fracture or traumatic malalignment. There are advanced degenerative changes in both femoral acetabular joints, with remodeling of the right femoral head. 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 The remaining visualized joint spaces are intact. There is no remarkable intervertebral disc space narrowing in the lumbar spine. The soft tissue is unremarkable. Signed: Duke Watson MD Report Verified Date/Time: 03/05/2018 12:24:44 Reading Location: [facility] Radiology Reading Room Performing Organization Address City/State/Zipcode Phone Number GE RIS * XR hip 2 views left (03/05/2018 12:21 PM CDT) Narrative Performed At FINAL REPORT [facility] Lumbar spine five views, right hip two views, and left hip two views CLINICAL HISTORY: pain in left hip COMPARISON: None available IMPRESSION: There is no fracture or traumatic malalignment. There are advanced degenerative changes in both femoral acetabular joints, with remodeling of the right femoral head. 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 The remaining visualized joint spaces are intact. There is no remarkable intervertebral disc space narrowing in the lumbar spine. The soft tissue is unremarkable. Signed: Duke Watson MD Report Verified Date/Time:03/05/2018 12:24:33 Reading Location: [facility] Radiology Reading Room Procedure Note Interface, External Ris In - 03/05/2018 12:26 PM CDT FINAL REPORT Lumbar spine five views, right hip two views, and left hip two views CLINICAL HISTORY: pain in left hip COMPARISON: None available IMPRESSION: There is no fracture or traumatic malalignment. There are advanced degenerative changes in both femoral acetabular joints, with remodeling of the right femoral head. 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 The remaining visualized joint spaces are intact. There is no remarkable intervertebral disc space narrowing in the lumbar spine. The soft tissue is unremarkable. Signed: Duke Watson MD Report Verified Date/Time: 03/05/2018 12:24:33 Reading Location: [facility] Radiology Reading Room Performing Organization Address City/State/Zipcode Phone Number GE RIS * XR spine lumbar complete 4 views min (03/05/2018 12:21 PM CDT) Narrative Performed At FINAL REPORT [facility] Lumbar spine five views, right hip two views, and left hip two views CLINICAL HISTORY: pain in left hip COMPARISON: None available IMPRESSION: There is no fracture or traumatic malalignment. There are advanced degenerative changes in both femoral acetabular joints, with remodeling of the right femoral head. 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 The remaining visualized joint spaces are intact. There is no remarkable intervertebral disc space narrowing in the lumbar spine. The soft tissue is unremarkable. Signed: Duke Watson MD Report Verified Date/Time:03/05/2018 12:24:33 Reading Location: [facility] Radiology Reading Room Procedure Note Interface, External Ris In - 03/05/2018 12:26 PM CDT FINAL REPORT Lumbar spine five views, right hip two views, and left hip two views CLINICAL HISTORY: pain in left hip COMPARISON: None available IMPRESSION: There is no fracture or traumatic malalignment. There are advanced degenerative changes in both femoral acetabular joints, with remodeling of the right femoral head. 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 The remaining visualized joint spaces are intact. There is no remarkable intervertebral disc space narrowing in the lumbar spine. The soft tissue is unremarkable. Signed: Duke Watson MD Report Verified Date/Time: 03/05/2018 12:24:33 Reading Location: [facility] Radiology Reading Room Performing Organization Address City/State/Zipcode Phone Number GE RIS after 12/01/2017 Insurance Payer Benefit Subscriber ID Type Phone Address Plan / Group MEDICAID - MEDICAID MGD EMILIANO xxxxxxxxx Medicaid CARE COMM STAR Contracted PLAN Advance Directives For more information, please contact: [facility] [address] [place] [phone] Date Inactivated Comments Code Status Date Activated 08/22/2018 5:26 PM Full Code 08/18/2018 5:50 PM This code status was determined by: Patient 12/10/2015 5:17 PM Full Code 12/08/2015 1:29 PM This code status was determined by: Patient 06/05/2014 6:14 PM Full Code 05/28/2014 3:37 PM This code status was determined by: Patient
--- OUTSIDE RECORDS SUMMARY | 2018-12-02 08:05 | XMS REPORT ---
Author Author [facility] Address Unknown Phone Unavailable Care Team Providers Care Supervisor Malted Milk Name Role Phone DANAE BELLAMY Unavailable Unavailable Kaycee BUNN Unavailable Unavailable Problems This patient has no known problems. Allergies, Adverse Reactions, Alerts This patient has no known allergies or adverse reactions. Medications This patient has no known medications. Encounters Start Date/Time End Date/Time Encounter Type Admission Type Attending [facility] Care Department Encounter ID 2018-08-25 00:00:00 2018-08-25 00:00:00 Outpatient [facility] [id number] 2018-08-25 00:00:00 2018-08-25 00:00:00 Outpatient [facility] [id number] 2018-08-08 18:58:02 2018-08-08 18:58:02 Emergency [facility] [id number] 2018-08-08 16:55:35 2018-08-08 16:55:35 Emergency [facility] [id number] 2017-10-23 09:38:06 2017-10-23 09:38:06 Outpatient [facility] [id number] 2017-05-04 00:00:00 2017-06-01 00:00:00 Outpatient [facility] [id number] 2017-05-31 11:00:01 2017-05-31 11:00:01 Outpatient [facility] [id number] 2017-04-20 04:57:04 2017-04-20 04:57:04 Emergency [facility] [id number] 2017-04-18 00:00:00 2017-04-20 00:00:00 Outpatient [facility] [id number] Results Test Description Test Time Test Comments Text Results Atomic Results Result Comments TISSUE EXAM 2018-08-26 16:09:00 Surgical Pathology Report Case: [id number] Authorizing Provider: Lorene Boggs, Collected: 08/19/2018 132Silas GRANADOS Ordering Location: [facility] PERIOPERATIVE Received: 08/19/2018 1453 SERVICES Pathologist: Juan Carlos Isaac MD Specimen: Femoral Head,Left Hip PART A LEFT FEMORAL HEAD, ARTHROPLASTY FOR FRACTURE:DEGENERATIVE, PARTIALLY NECROTIC CHANGES IN BONE AND CARTILAGE.REACTIVE SYNOVIAL TISSUE. Signing Pathologist Direct Phone Line: [phone] signed by Juan Carlos Isaac MD on 08/26/2018 at 4:09 [id number], [id number] hip fractureLeft femoral headThe specimen is received in a fluidless container labeled with patient's information labeled "left femoral head" and consists of a distorted taylor-red femoral head measuring 4 x 3 x 3 cm. The base is sharply amputated. The articular surface has distinct osteophyte formation and pitting with eburnation. The specimen is flattened. Section code: A1 and A3, bone submitted for decalcification; A4, soft tissue and bone submitted for decalcification. CG/pl PERFORMED. CBC (HEMOGRAM ONLY) 2018-08-22 05:53:00 WHITE BLOOD CELL COUNT (BEAKER) (test rnhk=468) 12.0 K/ L 3.5-10.5 RED BLOOD CELL COUNT (BEAKER) (test ktiq=855) 3.57 M/ L 4.63-6.08 HEMOGLOBIN (BEAKER) (test vmgk=572) 9.9 GM/DL 13.7-17.5 HEMATOCRIT (BEAKER) (test oleq=890) 30.7 % 40.1-51.0 MEAN CORPUSCULAR VOLUME (BEAKER) (test ilkl=232) 86.0 fL 79.0-92.2 MEAN CORPUSCULAR HEMOGLOBIN (BEAKER) (test yuzm=605) 27.7 pg 25.7-32.2 MEAN CORPUSCULAR HEMOGLOBIN CONC (BEAKER) (test rcwq=397) 32.2 GM/DL 32.3-36.5 RED CELL DISTRIBUTION WIDTH (BEAKER) (test dysv=721) 13.4 % 11.6-14.4 PLATELET COUNT (BEAKER) (test pjaw=139) 263 K/CU MM 150-450 MEAN PLATELET VOLUME (BEAKER) (test xvpa=319) 9.5 fL 9.4-12.4 NUCLEATED RED BLOOD CELLS (BEAKER) (test bumd=477) 0 /100 WBC 0-0 CBC W/PLT COUNT & AUTO [id number] 09:52:00* Test Item Value Reference Range Comments WHITE BLOOD CELL COUNT (BEAKER) (test tdue=981) 11.7 K/ L 3.5-10.5 RED BLOOD CELL COUNT (BEAKER) (test jsss=405) 3.45 M/ L 4.63-6.08 HEMOGLOBIN (BEAKER) (test dkfg=519) 9.5 GM/DL 13.7-17.5 HEMATOCRIT (BEAKER) (test oivt=882) 29.8 % 40.1-51.0 MEAN CORPUSCULAR VOLUME (BEAKER) (test mcvk=119) 86.4 fL 79.0-92.2 MEAN CORPUSCULAR HEMOGLOBIN (BEAKER) (test pzmj=008) 27.5 pg 25.7-32.2 MEAN CORPUSCULAR HEMOGLOBIN CONC (BEAKER) (test smov=805) 31.9 GM/DL 32.3-36.5 RED CELL DISTRIBUTION WIDTH (BEAKER) (test ghwe=972) 13.5 % 11.6-14.4 PLATELET COUNT (BEAKER) (test xsrd=311) 234 K/CU MM 150-450 MEAN PLATELET VOLUME (BEAKER) (test rbga=947) 9.1 fL 9.4-12.4 NUCLEATED RED BLOOD CELLS (BEAKER) (test edmb=400) 0 /100 WBC 0-0 (CELLAVISION MANUAL DIFF)2018-08-21 09:52:00* Test Item Value Reference Range Comments NEUTROPHILS - REL (CELLAVISION)(BEAKER) (test shth=8443) 79 % LYMPHOCYTES - REL (CELLAVISION)(BEAKER) (test udiy=8339) 15 % MONOCYTES - REL (CELLAVISION)(BEAKER) (test dvug=6380) 5 % ATYPICAL LYMPHOCYTES - REL (CELLAVISION)(BEAKER) (test goar=6695) 1 % 0-0 NEUTROPHILS - ABS (CELLAVISION)(BEAKER) (test oqaf=3894) 9.24 K/ul 1.78-5.38 LYMPHOCYTES - ABS (CELLAVISION)(BEAKER) (test wboo=3964) 1.76 K/ul 1.32-3.57 MONOCYTES - ABS (CELLAVISION)(BEAKER) (test hxiy=7434) 0.59 K/uL 0.30-0.82 ATYPICAL LYMPHOCYTES - ABS (CELLAVISION)(BEAKER) (test mnor=1516) 0.12 K/uL 0.00-0.00 TOTAL COUNTED (BEAKER) (test ulwd=9962) 100 MANUAL NRBC PER 100 CELLS (BEAKER) (test omsi=9985) 2 /100 WBC 0-0 WBC MORPHOLOGY (BEAKER) (test qvxx=917) Normal LARGE PLT(BEAKER) (test trta=9118) Present POLYCHROMATOPHILLIC RBCS(BEAKER) (test icun=300) 1+ few HYPOCHROMIA (BEAKER) (test rruo=090) 1+ few ARTIFACT (CELLAVISION)(BEAKER) (test djom=5203) Present PLATELET CONCENTRATION (CELLAVISION)(BEAKER) (test eset=1031) Adequate Received comment: User comments: Slide comments: BASIC METABOLIC [id number] 04:33:00* Test Item Value Reference Range Comments SODIUM (BEAKER) (test rrwk=789) 139 meq/L 136-145 POTASSIUM (BEAKER) (test yepg=181) 4.1 meq/L 3.5-5.1 CHLORIDE (BEAKER) (test dcty=826) 108 meq/L 98-107 CO2 (BEAKER) (test rpih=442) 25 meq/L 22-29 BLOOD UREA NITROGEN (BEAKER) (test lxxc=272) 11 mg/dL 7-21 CREATININE (BEAKER) (test dnto=435) 0.78 mg/dL 0.57-1.25 GLUCOSE RANDOM (BEAKER) (test kexv=854) 86 mg/dL 70-105 CALCIUM (BEAKER) (test puli=610) 9.3 mg/dL 8.4-10.2 EGFR (BEAKER) (test srze=0022) 132 mL/min/1.73 sq m ESTIMATED GFR IS NOT ACCURATE CREATININE CLEARANCE IN PREDICTING GLOMERULAR FILTRATION RATE. ESTIMATED GFR IS NOT APPLICABLE FOR DIALYSIS PATIENTS. CBC W/PLT COUNT & AUTO [id number] 05:41:00* Test Item Value Reference Range Comments WHITE BLOOD CELL COUNT (BEAKER) (test hqlc=841) 11.7 K/ L 3.5-10.5 RED BLOOD CELL COUNT (BEAKER) (test kcmo=412) 3.82 M/ L 4.63-6.08 HEMOGLOBIN (BEAKER) (test iqcv=091) 10.5 GM/DL 13.7-17.5 HEMATOCRIT (BEAKER) (test mggn=624) 32.3 % 40.1-51.0 MEAN CORPUSCULAR VOLUME (BEAKER) (test xjfc=828) 84.6 fL 79.0-92.2 MEAN CORPUSCULAR HEMOGLOBIN (BEAKER) (test ygpr=477) 27.5 pg 25.7-32.2 MEAN CORPUSCULAR HEMOGLOBIN CONC (BEAKER) (test qytv=319) 32.5 GM/DL 32.3-36.5 RED CELL DISTRIBUTION WIDTH (BEAKER) (test hwoe=017) 13.5 % 11.6-14.4 PLATELET COUNT (BEAKER) (test mltw=796) 253 K/CU MM 150-450 MEAN PLATELET VOLUME (BEAKER) (test kivn=954) 8.8 fL 9.4-12.4 NUCLEATED RED BLOOD CELLS (BEAKER) (test mtgz=205) 0 /100 WBC 0-0 NEUTROPHILS RELATIVE PERCENT (BEAKER) (test ptos=779) 76 % LYMPHOCYTES RELATIVE PERCENT (BEAKER) (test qhhv=910) 14 % MONOCYTES RELATIVE PERCENT (BEAKER) (test gqfv=197) 10 % EOSINOPHILS RELATIVE PERCENT (BEAKER) (test nhly=153) 1 % BASOPHILS RELATIVE PERCENT (BEAKER) (test siui=365) 0 % NEUTROPHILS ABSOLUTE COUNT (BEAKER) (test udzk=441) 8.85 K/ L 1.78-5.38 LYMPHOCYTES ABSOLUTE COUNT (BEAKER) (test xikt=441) 1.61 K/ L 1.32-3.57 MONOCYTES ABSOLUTE COUNT (BEAKER) (test ttho=205) 1.13 K/ L 0.30-0.82 EOSINOPHILS ABSOLUTE COUNT (BEAKER) (test viak=534) 0.06 K/ L 0.04-0.54 BASOPHILS ABSOLUTE COUNT (BEAKER) (test lubp=050) 0.03 K/ L 0.01-0.08 IMMATURE GRANULOCYTES-RELATIVE PERCENT (BEAKER) (test gjdz=6423) 0 % 0-1 BASIC METABOLIC [id number] 05:36:00* Test Item Value Reference Range Comments SODIUM (BEAKER) (test qqsz=706) 137 meq/L 136-145 POTASSIUM (BEAKER) (test epis=668) 3.8 meq/L 3.5-5.1 CHLORIDE (BEAKER) (test lfhq=552) 104 meq/L 98-107 CO2 (BEAKER) (test felk=159) 23 meq/L 22-29 BLOOD UREA NITROGEN (BEAKER) (test dyry=189) 18 mg/dL 7-21 CREATININE (BEAKER) (test bvnx=605) 0.97 mg/dL 0.57-1.25 GLUCOSE RANDOM (BEAKER) (test ibpu=733) 75 mg/dL 70-105 CALCIUM (BEAKER) (test aoei=371) 9.6 mg/dL 8.4-10.2 EGFR (BEAKER) (test iqao=9606) 103 mL/min/1.73 sq m ESTIMATED GFR IS NOT ACCURATE CREATININE CLEARANCE IN PREDICTING GLOMERULAR FILTRATION RATE. ESTIMATED GFR IS NOT APPLICABLE FOR DIALYSIS PATIENTS. RAD, PELVIS, 1 OR 2 [id number] 16:04:00Reason for exam:->post op total hip in PACUShould this be performed at the bedside?->YesFINAL REPORT TECHNIQUE: Frontal radiographs of the pelvis as well as the left hip dated 08/19/2018 HISTORY: Postop total hip COMPARISON: Radiograph of the pelvis performed earlier the same day Impression:The patient is status post total left hip arthroplasty with post surgical fluid and air seen in the soft tissues. Severe degenerative changes of the right femoral head are visualized. No fracture or dislocation. Bones osteopenia for patient's stated age. Signed: Mell Lawort Verified Date/Time: 08/19/2018 16:04:24 Reading Location: [facility] Radiology Reading Room , PELVIS, 1 OR 2 [id number] 15:55:00Reason for exam:->LEFT THRFINAL REPORT Radiograph of the pelvis Reason for exam: LEFT THR Comparison: No priors Discussion: A frontal view of the pelvis is obtained. Patient is undergoing left hip total arthroplasty. A reamer an acetabular cup have been placed. No acute fracture. Alignment is near-anatomic Note is made of absent right femoral head. Signed: Audrey Louiseeport Verified Date/Time: 08/19/2018 15:55:36 Reading Location: [facility] B1 [id number] Consult Reading Room , CHEST, 1 VIEW, NON DEPT 2018-08-18 18:44:00Reason for exam:->pre-opFINAL REPORT TECHNIQUE: Single view of the chest. COMPARISON: 02/03/2016 FINDINGS: The cardiac silhouette is within normal limits. Mediastinum is unremarkable. Lungs are clear. Osseous structures appear unremarkable. [place] project over the right neck presumably external to the patient. IMPRESSION: No acute cardiopulmonary disease. Signed: Shiraz Mckeon MDReport Verified Date/Time: 08/18/2018 18:44:14 Reading Location: [facility] Mammo Reading Room /APTT 2018-08-18 17:21:00* Test Item Value Reference Range Comments PROTIME (BEAKER) (test prpt=455) 14.8 seconds 11.7-14.7 INR (BEAKER) (test eetr=349) 1.2 <=5.9 PARTIAL THROMBOPLASTIN TIME (BEAKER) (test uhgg=327) 32.3 seconds 22.5-36.0 RECOMMENDED COUMADIN/WARFARIN INR THERAPY RANGESSTANDARD DOSE: 2.0 - 3.0 Inclu peewee: PROPHYLAXIS for venous thrombosis, systemic embolization; TREATMENT for tr ous thrombosis and/or pulmonary embolus.HIGH RISK: Target INR is 2.5-3.5 for pat ients with mechanical heart valves.CT, [id number] 16:12:00FINAL REPORT CT abdomen and pelvis without intravenous [...] The osseous structures demonstrate osteonecrosis of the bilater al femoral heads which appear markedly flattened with hip joint effusions and sy novitis. There is superimposed osteoarthritis. There is an age indeterminate fra cture of the left femoral head and neck. The unenhanced liver, spleen, pancreas, and adrenal glands are unremarkable. The gallbladder is unremarkable. There is no biliary dilatation. The stomach is underdistended limiting its evaluation. Th ere is a 4 mm stone in the right distal ureter without significant dilatation of the right collecting system. Additional small nonobstructing right renal calculi are seen measuring up to 2 mm in the right lower pole. The urinary bladder is underdistended with questionable wall thickening which can be correlated with ur inalysis. There is no bowel obstruction or perforation. There is mild colonic di verticulosis. The appendix appear normal. There are vascular calcifications. The re is no fluid collection or lymphadenopathy. IMPRESSION:1. 4 mm right distal ur eteral stone without significant dilatation of the right collecting system. Jarvis tional nonobstructing right renal calculi.2. Wall thickening of the urinary blad pancho can be correlated with urinalysis.3. Extensive osteonecrosis of the bilatera l femoral heads with hip joint effusions and synovitis. Fracture of the left fem oral head and neck. Signed: Cameron Zuñiga MDReport Verified Date/Time: 08/18/2018 16:12:06 Reading Location: [facility] Radiology Reading Room Electronically sign ed by: CAMERON ZUÑIGA M.D. on 08/18/2018 04:12 PM URINALYSIS W/ REFLEX URINE [id number] 15:40:00* Test Item Value Reference Range Comments COLOR (BEAKER) (test fjsx=768) Yellow CLARITY (BEAKER) (test ljou=699) Hazy SPECIFIC GRAVITY UA (BEAKER) (test ypci=825) 1.018 1.001-1.035 PH UA (BEAKER) (test oumd=161) 5.5 5.0-8.0 PROTEIN UA (BEAKER) (test hwjn=778) 20 mg/dL Negative GLUCOSE UA (BEAKER) (test cywz=382) Negative Negative KETONES UA (BEAKER) (test eefj=855) Trace Negative BILIRUBIN UA (BEAKER) (test riwu=769) Negative Negative BLOOD UA (BEAKER) (test wwok=028) Negative Negative NITRITE UA (BEAKER) (test ytem=957) Negative Negative LEUKOCYTE ESTERASE UA (BEAKER) (test fjps=641) Negative Negative UROBILINOGEN UA (BEAKER) (test zntm=402) 3.0 mg/dL 0.2-1.0 RBC UA (BEAKER) (test eksg=138) 6 /HPF WBC UA (BEAKER) (test xmuf=122) 10 /HPF MUCUS (BEAKER) (test jpbd=5292) Moderate CRYSTALS, URINE (BEAKER) (test hjlv=1906) Occasional YEAST (BEAKER) (test mmkj=2816) Few SOURCE(BEAKER) (test xnum=4525) BASIC METABOLIC [id number] 15:20:00* Test Item Value Reference Range Comments SODIUM (BEAKER) (test dbif=114) 139 meq/L 136-145 POTASSIUM (BEAKER) (test jzpb=699) 3.8 meq/L 3.5-5.1 CHLORIDE (BEAKER) (test ltjb=512) 103 meq/L 98-107 CO2 (BEAKER) (test emuc=748) 27 meq/L 22-29 BLOOD UREA NITROGEN (BEAKER) (test oloa=800) 18 mg/dL 7-21 CREATININE (BEAKER) (test gtyd=814) 0.96 mg/dL 0.57-1.25 GLUCOSE RANDOM (BEAKER) (test dusk=999) 82 mg/dL 70-105 CALCIUM (BEAKER) (test uzhx=595) 10.7 mg/dL 8.4-10.2 EGFR (BEAKER) (test mmqj=0770) 104 mL/min/1.73 sq m ESTIMATED GFR IS NOT ACCURATE CREATININE CLEARANCE IN PREDICTING GLOMERULAR FILTRATION RATE. ESTIMATED GFR IS NOT APPLICABLE FOR DIALYSIS PATIENTS. CBC W/PLT COUNT & AUTO [id number] 15:19:00* Test Item Value Reference Range Comments WHITE BLOOD CELL COUNT (BEAKER) (test ldlc=623) 9.4 K/ L 3.5-10.5 RED BLOOD CELL COUNT (BEAKER) (test laer=597) 4.80 M/ L 4.63-6.08 HEMOGLOBIN (BEAKER) (test qpkl=399) 13.2 GM/DL 13.7-17.5 HEMATOCRIT (BEAKER) (test hdeb=543) 40.9 % 40.1-51.0 MEAN CORPUSCULAR VOLUME (BEAKER) (test tjrl=967) 85.2 fL 79.0-92.2 MEAN CORPUSCULAR HEMOGLOBIN (BEAKER) (test jazy=958) 27.5 pg 25.7-32.2 MEAN CORPUSCULAR HEMOGLOBIN CONC (BEAKER) (test peql=393) 32.3 GM/DL 32.3-36.5 RED CELL DISTRIBUTION WIDTH (BEAKER) (test wpgm=178) 13.7 % 11.6-14.4 PLATELET COUNT (BEAKER) (test icxk=353) 298 K/CU MM 150-450 MEAN PLATELET VOLUME (BEAKER) (test vyxt=418) 8.3 fL 9.4-12.4 NUCLEATED RED BLOOD CELLS (BEAKER) (test gajo=273) 0 /100 WBC 0-0 NEUTROPHILS RELATIVE PERCENT (BEAKER) (test malc=200) 64 % LYMPHOCYTES RELATIVE PERCENT (BEAKER) (test qtxk=718) 19 % MONOCYTES RELATIVE PERCENT (BEAKER) (test jppp=339) 16 % EOSINOPHILS RELATIVE PERCENT (BEAKER) (test nfjl=933) 1 % BASOPHILS RELATIVE PERCENT (BEAKER) (test cshn=388) 0 % NEUTROPHILS ABSOLUTE COUNT (BEAKER) (test zvzc=341) 6.01 K/ L 1.78-5.38 LYMPHOCYTES ABSOLUTE COUNT (BEAKER) (test fwtt=647) 1.75 K/ L 1.32-3.57 MONOCYTES ABSOLUTE COUNT (BEAKER) (test wpah=920) 1.46 K/ L 0.30-0.82 EOSINOPHILS ABSOLUTE COUNT (BEAKER) (test gqpo=246) 0.09 K/ L 0.04-0.54 BASOPHILS ABSOLUTE COUNT (BEAKER) (test yxij=160) 0.04 K/ L 0.01-0.08 IMMATURE GRANULOCYTES-RELATIVE PERCENT (BEAKER) (test cpge=5799) 1 % 0-1 RAD, BONE DENSITY [id number] 10:46:00Reason for Exam:->M54.5FINAL REPORT Bone mineral density study 07/28/2018. CLINICAL [...] This is suggestive of osteoporosis. Signed: Erika Thorpe Verified Date/Time: 07/28/2018 10:46:13 Reading Location: [facility] Mammo Reading Room , SHOULDER, COMPLETE (MIN 2 VIEWS), [id number] 13:27:00Reason for exam:->ARM PAIN, Hx of lupusFINAL REPORT TECHNIQUE: Four views of the right shoulder and three views of the left shoulder dated 06/19/2018 HISTORY: Arm pain COMPARISON: None. FINDINGS:No fracture or dislocation in either shoulder. Bones are normal in density. Joint spaces are unremarkable in appearance. No bone erosion or soft tissue nodule seen. No radiodense foreign body or subcutaneous emphysema. IMPRESSION:No fracture or dislocation in either shoulder. Signed: Mell Law Verified Date/Time: 06/19/2018 13:27:48 Reading Location: [facility] Radiology Reading Room , SHOULDER, COMPLETE (MIN 2 VIEWS), [id number] 13:27:00Reason for exam:->ARM PAIN, Hx of lupusFINAL REPORT TECHNIQUE: Four views of the right shoulder and three views of the left shoulder dated 06/19/2018 HISTORY: Arm pain COMPARISON: None. FINDINGS:No fracture or dislocation in either shoulder. Bones are normal in density. Joint spaces are unremarkable in appearance. No bone erosion or soft tissue nodule seen. No radiodense foreign body or subcutaneous emphysema. IMPRESSION:No fracture or dislocation in either shoulder. Signed: Mell Lawort Verified Date/Time: 06/19/2018 13:27:48 Reading Location: [facility] Radiology Reading Room , SPINE, LUMBAR, COMPLETE (MIN 4 VIEWS)2018-03-05 12:24:00Reason for Exam:->low back painFINAL REPORT Lumbar spine five views, right hip [...] soft tissue is unremarkable. Signed: Duke Watson Verified Date/Time: 03/05/2018 12:24:33 Reading Location: [facility] Radiology Reading Room , HIP, 2 VIEWS, [id number] 12:24:00Reason for Exam:->pain in left hipFINAL REPORT Lumbar spine five views, right hip [...] remarkable fragmentation of either femoral head. The re maining visualized joint spaces are intact. There is no remarkable intervertebra l disc space narrowing in the lumbar spine. The soft tissue is unremarkable. Sig sara: Duke Watson Verified Date/Time: 03/05/2018 12:24:33 Reading L ocation: [facility] Radiology Reading Room , HIP, 2 VIEWS, [id number] 12:24:00Reason for Exam:->RIGHT HIP PAINFINAL REPORT Lumbar spine five views, right hip [...] soft tissue is unremarkable. Signed: Duke Watson Verified Date/Time: 03/05/2018 12:24:44 Reading Location: [facility] Radiology Reading Room W/PLT COUNT & AUTO [id number] 16:08:00* Test Item Value Reference Range Comments WHITE BLOOD CELL COUNT (BEAKER) (test bxnk=678) 14.6 K/ L 4.0-10.0 RED BLOOD CELL COUNT (BEAKER) (test nrgi=737) 5.46 M/ L 4.20-5.80 HEMOGLOBIN (BEAKER) (test uuhx=670) 16.1 GM/DL 13.0-16.8 HEMATOCRIT (BEAKER) (test puzp=460) 47.8 % 40.0-50.0 MEAN CORPUSCULAR VOLUME (BEAKER) (test pbka=830) 87.5 fL 82.0-98.0 MEAN CORPUSCULAR HEMOGLOBIN (BEAKER) (test djaz=982) 29.4 pg 27.0-33.0 MEAN CORPUSCULAR HEMOGLOBIN CONC (BEAKER) (test venf=008) 33.6 GM/DL 32.0-36.0 RED CELL DISTRIBUTION WIDTH (BEAKER) (test gzvk=503) 13.6 % 10.3-14.2 PLATELET COUNT (BEAKER) (test ytxn=822) 236 K/CU MM 150-430 MEAN PLATELET VOLUME (BEAKER) (test xywj=603) 6.4 fL 6.5-10.5 NUCLEATED RED BLOOD CELLS (BEAKER) (test vknu=116) 0 /100 WBC 0-0 NEUTROPHILS RELATIVE PERCENT (BEAKER) (test ywqs=107) 87 % LYMPHOCYTES RELATIVE PERCENT (BEAKER) (test sthc=361) 8 % MONOCYTES RELATIVE PERCENT (BEAKER) (test nzzt=794) 5 % EOSINOPHILS RELATIVE PERCENT (BEAKER) (test iudm=843) 0 % BASOPHILS RELATIVE PERCENT (BEAKER) (test htfc=598) 0 % NEUTROPHILS ABSOLUTE COUNT (BEAKER) (test qygw=226) 12.70 K/ L 1.80-8.00 LYMPHOCYTES ABSOLUTE COUNT (BEAKER) (test jyju=256) 1.18 K/ L 1.48-4.50 MONOCYTES ABSOLUTE COUNT (BEAKER) (test qxid=178) 0.68 K/ L 0.00-1.30 EOSINOPHILS ABSOLUTE COUNT (BEAKER) (test trpw=518) 0.02 K/ L 0.00-0.50 BASOPHILS ABSOLUTE COUNT (BEAKER) (test edmg=875) 0.05 K/ L 0.00-0.20 0.00
[2018-12-02] MEDS ORDERED: CELECOXIB 200 MG CAP ONE (08:23)
[2018-12-02] MEDS ORDERED: CEFAZOLIN SOD 2 GM/D5W 50ML 50 ML IV ONE (08:24)
[2018-12-02] MEDS ORDERED: DEXAMETHASONE SOD PHOS 10 MG/1 ML VIAL ONE (08:24)
[2018-12-02] MEDS ORDERED: GABAPENTIN 300 MG CAP ONE (08:24)
[2018-12-02] MEDS ORDERED: BUPIVACAINE 7.5MG/ML /DEXTROSE 82.5MG/ML 2 ML AMP INJ ONE (10:05)
[2018-12-02] MEDS: SODIUM CHLORIDE 0.9% 1000ML 1,000 ML IV SCH ×2 (11:10→21:10)
[2018-12-02] MEDS ORDERED: ACETAMINOPHEN 650 MG SUPP PR PRN (11:15)
[2018-12-02] MEDS ORDERED: KETOROLAC TROMETHAMINE 30 MG/ML VIAL IV PRN (11:15)
[2018-12-02] MEDS ORDERED: ONDANSETRON HCL INJ 2MG/ML 2ML 2 MG/ML VIAL IV PRN (11:15)
[2018-12-02] MEDS ORDERED: DIPHENHYDRAMINE HCL INJ 50 MG/ML VIAL IM/IV PRN (11:15)
[2018-12-02] MEDS ORDERED: DOCUSATE SODIUM 100 MG CAP PO PRN (11:15)
[2018-12-02] MEDS ORDERED: PROMETHAZINE HCL (IM) 25 MG/ML VIAL IM PRN (11:15)
[2018-12-02] MEDS ORDERED: HYDROMORPHONE 2MG/ML 2 MG/ML ML ONE (12:22)
--- NOTE | 2018-12-02 12:52 | Operative Report ---
DATE OF PROCEDURE: December 02, 2018 REGISTERED DENTAL ASSISTANT RDA: Ky Dumont PA-C The patient was brought to the operating room for induction of anesthesia. Throughout this case, my PA's assistance was necessary for retraction of soft tissue and positioning of the extremity. This allows for efficient and technically successful execution of the operation and is considered medically necessary. PREOPERATIVE DIAGNOSIS: Ficat stage IV avascular necrosis, right hip. POSTOPERATIVE DIAGNOSIS: Ficat stage IV avascular necrosis, right hip. PROCEDURE: Right total hip arthroplasty. INDICATIONS: The patient is a 43-year-old gentleman with severe avascular necrosis of his right hip. He has complete collapse and erosion of his right femoral head. He had a similar situation in the left side that responded well to a left total hip replacement. He would now like to have the right hip done. He is familiar with the risks and benefits. These have been reviewed. He states he understands and wishes to proceed. DESCRIPTION OF PROCEDURE: The patient was brought to the operating room and given a spinal anesthetic. He received prophylactic antibiotics and tranexamic acid in the holding area. He was placed under a light general anesthetic and positioned in the left lateral decubitus position. His right hip was prepped and draped in a sterile manner. A preoperative time out was performed. A limited incision posterior approach was made to the right hip. Hemostasis was obtained with electrocautery. A Charnley self-retaining retractor was placed. The posterior capsule was exposed and released. Further hemostasis was obtained with electrocautery. The hip was dislocated. Multiple fragments of cartilage and subchondral bone were excised from the joint. An oscillating saw was used to resect what was left of the femoral head. Acetabular retractors were placed. The superior capsule was markedly thickened. There was a massive joint effusion. Further fragments of cartilage and subchondral bone were removed from the socket. The true floor of the acetabulum was established with a 46 mm reamer. A KokoDealTraction OsseoTi system was used. The socket was sequentially reamed up to 53 mm. Healthy hemispherical bleeding cancellous bone was accomplished. The hip was thoroughly irrigated, and then a 54 mm outer diameter socket was impacted into place. Fixation was augmented with a single 20 mm screw placed into the ilium. A highly crosslinked polyethylene liner was then seated into place. Care was taken to make sure that there was no evidence of soft-tissue interposition. The socket was packed with a moistly soaked lap sponge, and attention was directed towards the proximal femur. A box-cutting osteotome and taper pin reamer were used to establish entry to the femoral canal. The Taperloc broaches were impacted. A size 11 stem had good canal fill and rotational stability for a trial reduction. A standard 36 mm head was trialed. The hip was put through a full arc of motion and noted to have excellent stability and hinduism of limb length. The trial implants were removed. Further irrigation was performed. A 100 mL premixed pericapsular BC injection was placed into the surrounding soft tissue. The implant was seated, and the ceramic head was placed onto the stem. The stem was clean and dry at that time. A final reduction was performed. The posterior capsule was repaired with number 2 Ethibond. The proximal tensor fascia and gluteal fascia were closed with number 2 Ethibond. The skin was closed with subcuticular Vicryl and sherrell. A sterile Aquacel bandage was applied. The patient was returned to the supine position. The estimated blood loss was about 50 mL. At the end of the procedure, all needle and sponge counts were correct. Job#: [id number]
--- OUTSIDE RECORDS SUMMARY | 2018-12-02 13:25 | XMS REPORT | Clinical Summary ---
Author Author [facility] Organization [facility] Address Unknown Phone Unavailable Care Team Providers Care Cardiology Technician Name Role Phone PCP Unavailable Allergies No [...] Performed At EXAM:XRAY HIP UNILATERAL 2/3 VIEWS [facility] DATE:08/08/2018 7:14 PM INDICATION:severe left hip pain [...] PM Performing Organization Address City/State/Zipcode Phone Number [facility] after 12/01/2017 Insurance Type Payer Benefit Subscriber ID Effective Phone Address Plan / Dates Group [facility] xxxxxxxxx 2012-P [phone] [address] [facility] resent [id number] [place] [address]
--- OUTSIDE RECORDS SUMMARY | 2018-12-02 13:26 | XMS REPORT | Clinical Summary ---
Author Author RAV[email or web address] Address Unknown Phone Unavailable Care Team Providers Care Brilliandeer Looper Name Role Phone Pcp, No PCP Unavailable [...] Lot Implanted Type Area Manufactur er 05/20/2023 [id number] / N/A / 7DN Scr Low Profile 6.5x25mm [id number] Fracture/F Left: Hip LULU:ST - Sn/A ixation CARLOS EDUARDO Implanted: Qty: 1 on 08/19/2018 by Lorene Lozano MD 05/20/2023 [id number] / N/A / 7DN Scr Low Profile 6.5x25mm [id number] Fracture/F Left: Hip LULU:ST - Sn/A ixation CARLOS EDUARDO Implanted: Qty: 1 on 08/19/2018 by Lorene Lozano MD 06/18/2023 702-04-52E / N/A / [id number] Trident Ii Tri Clusterhole 52e Joints Left: Hip LULU 702-04-52e - Sn/A ORTHO CAP Implanted: Qty: 1 on 08/19/2018 by Lorene Boggs MD 07/01/2023 623-00-36E / N/A / [id number] Insrt Trident X3 0deg 36mm Joints Left: Hip LULU:ST 623-00-36e - Sn/A CARLOS EDUARDO Implanted: Qty: 1 on 08/19/2018 by Lorene Lozano MD 05/19/2023 6570-0-136 / N/A / [id number] Head Fem Ceramic V40 36mm Joints Left: Hip LULU:ST 6570-0-136 - Sn/A CARLOS EDUARDO Implanted: Qty: 1 on 08/19/2018 by Lorene Lozano MD 06/22/2023 [id number] / N/A / [id number] Hip Stem Accolade Ii 127d 5 - [...] ms QTC Calculatio n(Bazett) 426 ms P [place] 58 degrees R [place] 41 degrees T [place] 32 degrees Normal sinus rhythm Normal ECG [...] ABO O Pos SAFETRACE TX UNIT NUMBER [id number] SAFETRACE TX Status WORK IN PROGRESS SAFETRACE TX Blood Bank Product RED BLOOD CELLS SAFETRACE TX PRODUCT CODE [id number] SAFETRACE TX Unit ABO O Neg SAFETRACE TX UNIT NUMBER [id number] SAFETRACE TX Status WORK IN PROGRESS SAFETRACE TX Blood Bank Product RED BLOOD CELLS SAFETRACE TX PRODUCT CODE [id number] SAFETRACE TX CROSSMATCH COMPATIBLE SAFETRACE TX CROSSMATCH COMPATIBLE SAFETRACE TX Performing Organization Address City/State/[facility] Phone Number SAFETRACE [place] * CBC (Hemogram only) (08/22/2018 5:12 AM CDT) WBC 12.0 (H) 3.5 - 10.5 K/L [facility] RBC 3.57 (L) 4.63 - 6.08 M/L [facility] Hemoglobin 9.9 (L) 13.7 - 17.5 GM/DL [facility] Hematocrit 30.7 (L) 40.1 - 51.0 % [facility] MCV 86.0 79.0 - 92.2 fL [facility] MCH 27.7 25.7 - 32.2 pg [facility] MCHC 32.2 (L) 32.3 - 36.5 GM/DL [facility] RDW 13.4 11.6 - 14.4 % [facility] Platelets 263 150 - 450 K/CU MM [facility] MPV 9.5 9.4 - 12.4 fL [facility] nRBC 0 0 - 0 /100 WBC [facility] Specimen Blood Performing Organization Address City/State/Zipcode Phone Number [facility] [address] [place] [address] MEDICAL CENTER * Manual Differential (08/21/2018 3:37 AM CDT) % Neutros 79 % [facility] % Lymphs 15 % [facility] % Monos 5 % [facility] % Atypical Lymphs 1 (H) 0 - 0 % [facility] # Neutros 9.24 (H) 1.78 - 5.38 K/ul [facility] # Lymphs 1.76 1.32 - 3.57 K/ul [facility] # Monos 0.59 0.30 - 0.82 K/uL [facility] # Atypical Lymphs 0.12 (H) 0.00 - 0.00 K/uL [facility] Total Counted 100 [facility] nRBC (manual) 2 (H) 0 - 0 /100 WBC [facility] WBC Morphology Normal [facility] Large Platelet Present [facility] Polychromasia 1+ few [facility] Hypochromia 1+ few [facility] Artifact Present [facility] Platelet Conc Adequate [facility] Specimen Blood - Arm, Right Narrative Performed At Received comment: [facility] User comments: [facility] Slide comments: Performing Organization Address City/[facility] Centercode Phone Number [facility] [address] [place] [address] [facility] * CBC with platelet count + automated diff (08/21/2018 3:37 AM CDT) Only the most recent of 3 results within the time period is included. WBC 11.7 (H) 3.5 - 10.5 K/L [facility] RBC 3.45 (L) 4.63 - 6.08 M/L [facility] Hemoglobin 9.5 (L) 13.7 - 17.5 GM/DL [facility] Hematocrit 29.8 (L) 40.1 - 51.0 % [facility] MCV 86.4 79.0 - 92.2 fL [facility] MCH 27.5 25.7 - 32.2 pg [facility] MCHC 31.9 (L) 32.3 - 36.5 GM/DL [facility] RDW 13.5 11.6 - 14.4 % [facility] Platelets 234 150 - 450 K/CU MM [facility] MPV 9.1 (L) 9.4 - 12.4 fL [facility] nRBC 0 0 - 0 /100 WBC [facility] Specimen Blood - Arm, Right Performing Organization Address City/[facility]/Zipcode Phone Number [facility] [address] [place] [address] [facility] * Basic Metabolic Panel (08/21/2018 3:37 AM CDT) Only the most recent of 3 results within the time period is included. Sodium 139 136 - 145 meq/L [facility] Potassium 4.1 3.5 - 5.1 meq/L [facility] Chloride 108 (H) 98 - 107 meq/L [facility] CO2 25 22 - 29 meq/L [facility] BUN 11 7 - 21 mg/dL [facility] Creatinine 0.78 0.57 - 1.25 mg/dL [facility] Glucose 86 70 - 105 mg/dL [facility] Calcium 9.3 8.4 - 10.2 mg/dL [facility] EGFR 132Comment: ESTIMATED GFR IS mL/min/1.73 sq m [facility] NOT ACCURATE CREATININE [facility] CLEARANCE IN PREDICTING GLOMERULAR FILTRATION RATE. ESTIMATED GFR IS NOT APPLICABLE FOR DIALYSIS PATIENTS. Specimen Blood - Arm, Right Performing Organization Address City/State/Zipcode Phone Number [facility] [address] [place] [address] [facility] * Transthoracic echo result (08/20/2018 8:49 PM CDT) Ejection Fraction [facility] Narrative Performed At Transthoracic Echocardiography Report (TTE) [facility] Demographics [facility] Patient Name RACHAEL Vera Date of Study 08/20/2018 [id number] Male Visit Number [id number] Room Number Number Date of Birth1975Referring Physician 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 Interpreting Wilmer Diego, Physician Fellow [...] of Study 08/20/2018 Gender Male Visit Number [id number] Race Unknown Room Number Number Date of 1975 Referring Physician 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 Interpreting Wilmer Diego, Physician Fellow [...] mmHg Performing Organization Address City/State/Zipcode Phone Number [facility]CKESS[facility] CPACS * XR pelvis [...] MD Report Verified Date/Time:08/19/2018 16:04:24 Reading Location: [facility] Radiology Reading Room Procedure Note Interface, External [...] Report Verified Date/Time: 08/19/2018 16:04:24 Reading Location: [facility] Radiology Reading Room Performing Organization Address City/State/Zipcode Phone Number RIS * Tissue Exam (08/19/2018 1:24 PM CDT) Case Report Surgical Pathology [facility] Report [facility] Case: [id number] Authorizing Provider:Lorene Boggs, Collected: 08/19/2018 1324 MD Ordering Location: [facility] Received: 08/19/2018 1453 SERVICES Pathologist: Juan Carlos Isaac MD Specimen:Femoral Head,Left Hip DIAGNOSIS PART A LEFT FEMORAL HEAD, [facility] ARTHROPLASTY FOR FRACTURE: [facility] DEGENERATIVE, PARTIALLY NECROTIC CHANGES IN BONE AND CARTILAGE. REACTIVE SYNOVIAL TISSUE. Signing Pathologist Direct Phone Line: [phone] CPT Code(s) 96561, [address] [facility] CLINICAL HISTORY Left hip fracture [facility] SPECIMEN SOURCE Left femoral head [facility] GROSS DESCRIPTION The specimen is received in a [facility] fluidless container labeled [facility] with patient's information labeled "left [...] submitted for decalcification. CG/pl MICROSCOPIC DESCRIPTION PERFORMED. [facility] Specimen Tissue - Femoral Head,Left Hip Performing Organization Address [facility] Cent[facility]ode Phone Number [address] [address] [phone] [place] [address] * Type and screen, automated (08/19/2018 4:43 AM CDT) ABO/RH AUTOMATED (BEAKER) O POSITIVE [facility] Ab Scrn NEGATIVE [facility] Specimen Blood Performing Organization Address City/[facility]/Zipcode Phone Number [address] [address] [facility] * ECG 12 lead (08/18/2018 6:04 PM CDT) Narrative Performed At Ventricular Rate 74 BPM GE MUSE Atrial Rate 74 BPM P-R Interval 114 ms QRS Duration 80 ms Q-T Interval 384 ms QTC Calculation(Bazett) 426 ms P [place] 58 degrees R [place] 41 degrees T [place] 32 degrees Normal sinus rhythm Normal ECG [...] 384 ms QTC Calculation(Bazett) 426 ms P [place] 58 degrees R [place] 41 degrees T [place] 32 degrees Normal sinus rhythm Normal ECG When compared with ECG of 08-DEC-2015 07:36, No significant change was found Confirmed by Freida TERRELL MICHAEL ([id number]) on 08/18/2018 10:17:45 PM Performing Organization Address City/[facility] Centercode Phone Number GE MUSE * XR chest 1 view portable / bedside (08/18/2018 5:45 PM CDT) Narrative Performed At FINAL REPORT [facility] TECHNIQUE: Single view of the chest. COMPARISON: 02/03/2016 FINDINGS: The cardiac silhouette is within normal limits.Mediastinum is unremarkable. Lungs are clear.Osseous structures appear unremarkable. [place] project over the right neck presumably external to the patient. IMPRESSION: No acute cardiopulmonary disease. Signed: Shiraz Wong MD Report Verified Date/Time:08/18/2018 18:44:14 Reading Location: [facility] Reading Room Procedure Note Interface, External Ris In - 08/18/2018 6:46 PM CDT FINAL REPORT TECHNIQUE: Single view of the chest. COMPARISON: 02/03/2016 FINDINGS: The cardiac silhouette is within normal limits. Mediastinum is unremarkable. Lungs are clear. Osseous structures appear unremarkable. [place] project over the right neck presumably external to the patient. IMPRESSION: No acute cardiopulmonary disease. Signed: Shiraz Wong MD Report Verified Date/Time: 08/18/2018 18:44:14 Reading Location: [facility] Mammo Reading Room Performing Organization Address City/[facility] Phone Number GE [facility] * PT/aPTT (08/18/2018 4:40 PM CDT) [facility] 14.8 (H) 11.7 - 14.7 seconds [facility] INR 1.2 <=5.9 [facility] PTT 32.3 22.5 - 36.0 seconds [facility] Specimen Blood Narrative Performed At RECOMMENDED COUMADIN/WARFARIN INR THERAPY RANGES [facility] STANDARD DOSE: 2.0 - 3.0 Includes: PROPHYLAXIS for venous thrombosis, [facility] systemic embolization; TREATMENT for venous thrombosis and/or pulmonary embolus. HIGH RISK: Target INR is 2.5-3.5 for patients with mechanical heart valves. Performing Organization Address City/State/Zipcode Phone Number [facility] [address] [place] [address] [facility] * CT abdomen/pelvis without iv contrast (08/18/2018 4:01 PM CDT) Narrative Performed At FINAL REPORT [employer] CT abdomen and pelvis without intravenous contrast. [...] MD Report Verified Date/Time:08/18/2018 16:12:06 Reading Location: [facility] Radiology Reading Room Procedure Note Interface, [...] Report Verified Date/Time: 08/18/2018 16:12:06 Reading Location: [facility] Radiology Reading Room Performing Organization Address City/[facility]/Zipcode Phone Number GE [facility] * Urinalysis w/Microscopic + Reflex to Culture (08/18/2018 3:15 PM CDT) Color, UA Yellow [facility] Clarity, UA Hazy [facility] Specific Fields, UA 1.018 1.001 - 1.035 [facility] pH, UA 5.5 5.0 - 8.0 [facility] Protein, UA 20 mg/dL (A) Negative [facility] Glucose, UA Negative Negative [facility] Ketones, UA Trace (A) Negative [facility] Bilirubin, UA Negative Negative [facility] Blood, UA Negative Negative [facility] Nitrite, UA Negative Negative [facility] Leukocytes, UA Negative Negative [facility] Urobilinogen, UA 3.0 (H) 0.2 - 1.0 mg/dL [facility] RBC, UA 6 /HPF [facility] WBC, UA 10 /HPF [facility] Mucus Moderate [facility] Crystals, Urine Occasional [facility] Yeast Few [facility] Specimen Source [facility] Specimen Urine - Urine, Voided Performing Organization Address City/[facility]/Zipcode Phone Number [facility] [address] [place] [address] MEDICAL CENTER * Urine culture (08/18/2018 3:15 PM CDT) Result 10-19,000 col/mL [facility] Beta-hemolytic streptococcus [facility] group B, by serological grouping (A) Specimen Urine - Urine, Voided Performing Organization Address City/State/Zipcode Phone Number [facility] [address] [place] [address] [facility] * XR DXA Bone Density Study (07/28/2018 9:42 AM CDT) Narrative Performed At FINAL REPORT [facility] Bone mineral density study 07/28/2018. CLINICAL INDICATION: [...] MD Report Verified Date/Time:07/28/2018 10:46:13 Reading Location: [facility] Mammo Reading Room Procedure Note Interface, External [...] Report Verified Date/Time: 07/28/2018 10:46:13 [facility] Performing Organization Address [facility] Phone Number [facility] * XR shoulder [...] MD Report Verified Date/Time:06/19/2018 13:27:48 Reading Location: [facility] Radiology Reading Room Procedure Note Interface, External [...] Report Verified Date/Time: 06/19/2018 13:27:48 Reading Location: [facility] Radiology Reading Room Performing Organization Address [facility] Phone Number GE [facility] * XR shoulder [...] MD Report Verified Date/Time:06/19/2018 13:27:48 Reading Location: [facility] Radiology Reading Room Procedure Note Interface, External [...] Report Verified Date/Time: 06/19/2018 13:27:48 Reading Location: [facility] Radiology Reading Room Performing Organization Address City/State/Zipcode Phone Number GE [facility] * XR hip 2 views right (03/05/2018 12:21 PM CDT) Narrative Performed At FINAL REPORT [facility] Lumbar spine five views, right hip two [...] MD Report Verified Date/Time:03/05/2018 12:24:44 Reading Location: [facility] Radiology Reading Room Procedure Note Interface, External [...] Report Verified Date/Time: 03/05/2018 12:24:44 Reading Location: [facility] Radiology Reading Room Performing Organization Address City/State/Zipcode Phone Number GE [facility] * XR hip 2 views left (03/05/2018 12:21 PM CDT) Narrative Performed At FINAL REPORT [facility] Lumbar spine five views, right hip two [...] MD Report Verified Date/Time:03/05/2018 12:24:33 Reading Location: [facility] Radiology Reading Room Procedure Note Interface, External [...] Report Verified Date/Time: 03/05/2018 12:24:33 Reading Location: [facility] Radiology Reading Room Performing Organization Address City/State/Zipcode Phone Number GE [facility] * XR spine lumbar complete 4 views min (03/05/2018 12:21 PM CDT) Narrative Performed At FINAL REPORT [facility] Lumbar spine five views, right hip two [...] MD Report Verified Date/Time:03/05/2018 12:24:33 Reading Location: [facility] Radiology Reading Room Procedure Note Interface, External [...] Report Verified Date/Time: 03/05/2018 12:24:33 Reading Location: [facility] Radiology Reading Room Performing Organization Address City/State/Zipcode Phone Number GE [facility] after 12/01/2017 Insurance Payer Benefit Subscriber ID Type Phone Address Plan / Group MEDICAID - MEDICAID MGD EMILIANO xxxxxxxxx Medicaid CARE COMM STAR Contracted PLAN Advance Directives For more information, please contact: [facility] [address] [place] [address] Date Inactivated Comments Code Status Date Activated 08/22/2018 5:26 PM Full Code 08/18/2018 5:50 PM This code status was determined by: Patient 12/10/2015 5:17 PM Full Code 12/08/2015 1:29 PM This code status was determined by: Patient 06/05/2014 6:14 PM Full Code 05/28/2014 3:37 PM This code status was determined by: Patient
[2018-12-02] MEDS: ACETAMINOPHEN 1000 MG/100 ML IV SCH ×3 (13:39→23:37)
[2018-12-02 13:59] VITALS: BP 154/88
[2018-12-02 14:11] VITALS: BP 154/88
--- NOTE | 2018-12-02 14:22 | Diagnostic Imaging Report ---
Radiographs of the right hip and pelvis - HISTORY: Surgery. Osteonecrosis COMPARISON: None available. FINDINGS: Bones: No acute displaced fracture. Osseous alignment is within normal limits. Joints: Patient is status post right and left hip replacement with associated postsurgical change. The right hip surgical hardware is intact without evidence of failure or loosening. Soft tissues: The soft tissues appear unremarkable. IMPRESSION: Patient is status post right and left hip replacement with associated postsurgical change. The right hip surgical hardware is intact without evidence of failure or loosening. Signed by: Dr. López Garcia M.D. on 12/02/2018 2:19 PM
[2018-12-02 14:24] VITALS: BP 154/88
--- NOTE | 2018-12-02 14:40 | NUR ---
PT working with patient at this time. Patient hopped 100 ft.
[2018-12-02] MEDS: HYDROCODONE/APAP 7.5MG-325MG 1 EA TAB PO PRN ×2 (15:08→19:42)
--- NOTE | 2018-12-02 15:19 | NUR ---
Patient A/O X3, even respirations on RA. Last BM this morning, bowel sounds active. Right hand 20 gauge IV that is H/L. Right hip dressing has small amount of blood on dressing, will continue to monitor. Foot pumps in place and pillow between legs. Patient is wearing thigh high Brandyn hose. No signs of distress. Call light in reach, will continue to monitor.
--- NOTE | 2018-12-02 15:28 | NUR ---
Patient has voided since surgery.
[2018-12-02] MEDS ORDERED: CELECOXIB 100 MG CAP PO SCH (17:00)
[2018-12-02 17:02] VITALS: BP 154/89
[2018-12-02] MEDS ORDERED: LIDOCAINE HCL 2% LOCAL INJ 5 ML SDV VIAL INJ ONE (17:46)
[2018-12-02] MEDS ORDERED: ROCURONIUM BROMIDE 10 MG/ML 5ML VIAL ONE (17:46)
[2018-12-02] MEDS ORDERED: GLYCOPYRROLATE INJ 1MG/ 5 ML SYR ONE (17:46)
[2018-12-02] MEDS ORDERED: NEOSTIGMINE 5 MG/5ML SYR ONE (17:46)
[2018-12-02] MEDS ORDERED: PHENYLEPHRINE HCL 1% 10 MG/ML VIAL ONE (17:46)
[2018-12-02] MEDS ORDERED: SEVOFLURANE INHAL SOLN 250 ML PEN BTL ONE (17:46)
[2018-12-02] MEDS ORDERED: ONDANSETRON HCL INJ 2MG/ML 2ML 2 MG/ML VIAL ONE (17:46)
[2018-12-02] MEDS ORDERED: PROPOFOL IV EMULSION 10 MG/ML 20 ML VIAL ONE (17:46)
[2018-12-02] MEDS: ASPIRIN 325 MG TAB PO SCH (18:01)
[2018-12-02] MEDS: CELECOXIB 200 MG CAP PO SCH (18:06)
[2018-12-02] MEDS ORDERED: MIDAZOLAM HCL 2 MG/2 ML VIAL ONE (18:28)
[2018-12-02] MEDS ORDERED: FENTANYL CITRATE/PF 100MCG/2 ML INJ ONE (18:28)
--- NOTE | 2018-12-02 18:46 | NUR ---
Spoke with Dr. Poon regarding right dressing full of blood, order to wrap with helder wrap and monitor.
[2018-12-02] MEDS: CEFAZOLIN SOD 1 GM/NS 50ML 50 ML IV SCH (19:08)
--- NOTE | 2018-12-02 19:09 | NUR ---
Old dressing removed. New ABD pads placed and covered with paper tape.
--- NOTE | 2018-12-02 19:30 | NUR ---
RECEIVED REPORT FROM AM RN.WALKING ROUNDS DONE.AAOX4.ASSESSMENT DONE.NO RESP.DISTRESS.DRESSING DRY AND INTACT.VOIDED.ABDUCTION PILLOW IS IN PLACE.FOOT PUMP IS IN PLACE.BED LOCKED AND IN LOWEST POSITION.PHONE AND CALL LIGHT WITHIN REACH.INSTRUCTED TO CALL FOR ASSISTANCE NEEDED.KEEP MONITORING THE PT.
[2018-12-02 20:00] VITALS: BP 170/91
[2018-12-02] MEDS ORDERED: ZOLPIDEM TARTRATE 5 MG TAB PO PRN (21:00)
[2018-12-03 00:18] VITALS: BP 160/80
[2018-12-03 00:44] VITALS: BP 145/80
[2018-12-03] MEDS: CEFAZOLIN SOD 1 GM/NS 50ML 50 ML IV SCH ×2 (01:55→09:14)
[2018-12-03] MEDS: HYDROCODONE/APAP 7.5MG-325MG 1 EA TAB PO PRN ×2 (02:09→11:40)
[2018-12-03 04:00] VITALS: BP 159/90
[2018-12-03] MEDS: HYDROCODONE/APAP 5MG-325MG TAB PO PRN ×2 (04:58→09:14)
--- NOTE | 2018-12-03 05:18 | Consultation ---
DATE OF CONSULTATION: REASON FOR CONSULTATION: Postop medical management. 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 Doing well postoperatively. He is having no pain. REVIEW OF SYSTEMS: He denies any chest pain, fever, chills, nausea, vomiting, headache. PAST MEDICAL HISTORY: Hypertension, lupus, reflux disease. MEDICATIONS: See MAR. ALLERGIES: NONE. SOCIAL HISTORY: Nonsmoker and nondrinker. FAMILY HISTORY: Noncontributory. PHYSICAL EXAMINATION VITALS: 97.6, pulse , blood pressure 155/80, sats 100% on room air. GENERAL: No apparent distress. CARDIOVASCULAR: Regular rate and rhythm. LUNGS: Clear to auscultation bilaterally. ABDOMEN: Good bowel sounds. Soft and nontender. EXTREMITIES: No clubbing or cyanosis. NEUROLOGICAL: Nonfocal. ASSESSMENT AND PLAN 1. Right hip arthrosis: Will need to continue . 2. Anemia: Check a CBC. 3. : . Please see hospital chart for full details. Job#: [id number]
[2018-12-03 05:54] LABS: HEMATOCRIT 34.9 % (38.2-49.6); HEMOGLOBIN 11.3 g/dL (14.0-18.0)
[2018-12-03] MEDS: ACETAMINOPHEN 1000 MG/100 ML IV SCH (05:57)
[2018-12-03] MEDS ORDERED: CARVEDILOL 12.5 MG TAB PO ONE (06:00)
--- NOTE | 2018-12-03 06:50 | NUR ---
Report given to the oncoming rn.walking rounds done.stable condition.
[2018-12-03] MEDS: SODIUM CHLORIDE 0.9% 1000ML 1,000 ML IV SCH (07:10)
[2018-12-03 08:48] VITALS: BP 137/89
[2018-12-03] MEDS ORDERED: ASPIRIN325 MG PO (08:55)
[2018-12-03] MEDS ORDERED: NON-FORMULARY MEDICATION (Carvedilol 25 MG) PO SCH (09:00)
[2018-12-03] MEDS ORDERED: CARVEDILOL 12.5 MG TAB PO SCH (09:00)
[2018-12-03] MEDS ORDERED: PANTOPRAZOLE SOD 40 MG TABEC PO SCH (09:00)
[2018-12-03] MEDS ORDERED: PREDNISONE 20 MG TAB PO SCH (09:00)
[2018-12-03] MEDS: ASPIRIN 325 MG TAB PO SCH (09:14)
[2018-12-03] MEDS: CELECOXIB 200 MG CAP PO SCH (09:14)
[2018-12-03 09:15] VITALS: BP 137/89
[2018-12-03] MEDS ORDERED: ACETAMINOPHEN 1000 MG/100 ML IV PRN (11:15)
[2018-12-03 12:03] VITALS: BP 130/81
--- NOTE | 2018-12-03 12:07 | NUR ---
CASE MANAGEMENT INITIAL ASSESSMENT Decision Support Manager to bedside to discuss plan of care with patient/family. CM/SW role and care transitions discussed. Anticipated discharge plan discussed along with duration of care. CM/SW discussed patients right to make decisions in care. CM/SW work hours given. Patient lives: with mom and step dad Admit/Transfer: from PACU, came for planned procedure Hospital/ER visits since last admit: 0 POA/Emergency contact: sister Negrito Jauregui [phone] Current/Previous Home Health: previously had [facility]. Dr. Poon's office set up home health with [facility]. Pt stated he was fine with going with [facility]. Choice letter signed and filed in chart. Copy to pt. PCP/Follow-up Care: goes to [facility] for PCP; will follow up with Dr. Poon next Saturday. Current/Previous DME: walker Medications (referring to index hospitalization or the first time you were in the hospital) a. Were changes made in your medications when you were in the hospital on [date of index hospitalization]? n/a b. Did you understand the changes? n/a c. Were you able to obtain your new medications right away? n/a d. Were you able to take your medications like the doctor wanted you to? n/a e. Did the hospital give you an accurate, easy to understand list of medications when you left? n/a Scale of 1-10 how comfortable does patient feel with disease management in outpatient settin Other Services: none Employment Status: unemployed Areas of Concerns: right hip replacement Referral Needs: home health Education Needs: hip precautions IMM/HEIN given and signed (if applicable): n/a Goal for discharge: home with home health; mom will provide transportation CM/SW left business card at the bedside with contact information. Name and number was also written on the patients whiteboard. Patient verbalized understanding of discussion. CM will follow-up with ongoing discharge and transition of care needs. DC plans pre-arranged by Dr. Poon's office as follows: DME with [employer]. They have delivered walker to pt's bedside. Pt stated he already has a 3-in-1 commode at home and does not need another one. Home health arranged with [facility]. CM called and spoke with Elzbieta and informed her pt is discharging today. They will be out to see pt tomorrow. Operative report faxed to [facility] staff. P [phone], F [phone].
--- NOTE | 2018-12-03 14:00 | NUR ---
right hip dressing changed. small amount of blood noted. sherrell well approximated. Site cleaned with normal saline and placed dry dressing.
--- NOTE | 2018-12-03 14:22 | NUR ---
Right hand IV discontinued. No signs of infiltration noted. 2x2 gauze and tape placed. Taken via wheelchair to personal car. Accompanied by family member. AAOX4 to time, person, place, situation. Respirations even and unlabored. Dressing to right hip clean, dry, and intact. Discharge instructions, rx, and all personal belongings taken with patient.
== END 2018-12-03 14:22 | disposition home health service (06) | DRG 470 ==
LOC: OR 08:02 → CATH LAB V 11:12 → MED/SURG 13:26
PROVIDERS: ADMIT Specialist; ATTEND Specialist
PROC: 0SR90JZ Replacement of Right Hip Joint with Synthetic Substitute, Open Approach (ICD-10-PCS; principal; 2018-12-02 10:00)
DX: M87.151 Osteonecrosis due to drugs, right femur (principal); T38.0X5A Adverse effect of glucocorticoids and synthetic analogues, initial encounter; M32.9 Systemic lupus erythematosus, unspecified; I10 Essential (primary) hypertension; K21.9 Gastro-esophageal reflux disease without esophagitis; D64.9 Anemia, unspecified; F17.210 Nicotine dependence, cigarettes, uncomplicated; Z96.642 Presence of left artificial hip joint; Z79.82 Long term (current) use of aspirin; Z79.52 Long term (current) use of systemic steroids
CPT/HCPCS: 36415; 72170; 85014; 85018; 85025; 86850; 86900; 86920; 93005; J0171; J0690; J1100; J1885; J2001; J2250; J2370; J2405; J2795; J3370; J7030; J7040; J7512

== ENCOUNTER 2019-03-02 07:19 | Inpatient (IN) | payer OTHER ==
[~2019-03-02] VITALS: Ht 167.6 cm; Wt 69.6 kg
[~2019-03-02 07:19] MED LIST changes: +ALPRAZOLAM PO; +APRAZOLAM; +ASPIRIN325 MG PO; -BACITRACIN 50,000 UNIT VIAL ONE; -SODIUM CHLORIDE 0.9% 500ML 500 ML ONE; -TRANEXAMIC ACID 1,000 MG/10 ML ML ONE; -VANCOMYCIN HCL 500 MG ONE
--- OUTSIDE RECORDS SUMMARY | 2019-03-02 07:22 | XMS REPORT | Clinical Summary ---
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 08/22/2018 Discontinued predniSONE (DELTASONE) 20 Take 2 [...] Radiology Shelton Becerra MD 08/19/2018 Anesthesia Event Lorene Boggs MD REVISION,TOTAL HIP 08/19/2018 Surgery Koby Mccollum [...] Right hip pain 03/05/2018 Outside Orders Radiology after 03/01/2018 Family History Medical History Relation Name Comments [...] Lot Implanted Type Area Manufactur er 05/20/2023 [id number] / N/A / 7DN Scr Low Profile 6.5x25mm [id number] Fracture/F Left: Hip LULU:ST - Sn/A ixation CARLOS EDUARDO Implanted: Qty: 1 on 08/19/2018 by Lorene Lozano MD 05/20/2023 [id number] / N/A / 7DN Scr Low Profile 6.5x25mm [id number] Fracture/F Left: Hip LULU:ST - Sn/A ixation CARLOS EDUARDO Implanted: Qty: 1 on 08/19/2018 by Lorene Lozano MD 06/18/2023 702-04-52E / N/A / [id number] Trident Ii Tri Clusterhole 52e Joints Left: Hip LULU 702--52e - Sn/A ORTHO CAP Implanted: Qty: 1 on 08/19/2018 by Lorene Boggs MD 07/01/2023 623-00-36E / N/A / [id number] Insrt Trident X3 0deg 36mm Joints Left: Hip LULU:ST 623-00-36e - Sn/A CARLOS EDUARDO Implanted: Qty: 1 on 08/19/2018 by Lorene Lozano MD 05/19/2023 6570-0-136 / N/A / [id number] Head Fem Ceramic V40 36mm Joints Left: Hip LULU:ST 6570-0-136 - Sn/A CARLOS EDUARDO Implanted: Qty: 1 on 08/19/2018 by Lorene Lozano MD 06/22/2023 [id number] / N/A / [id number] Hip Stem Accolade Ii 127d 5 - Sn/A Joints Left: Hip LULU:ST Implanted: Qty: 1 on 08/19/2018 by Lorene Khalil MD [facility] Procedures Comments Procedure Name Priority Date/Time Associated [...] ms QTC Calculatio n(Bazett) 426 ms P [place] 58 degrees R [place] 41 degrees T [place] 32 degrees Normal sinus rhythm Normal ECG [...] Left hip pain 12:21 PM CDT after 03/01/2018 Results * RHYTHM STRIP - SCAN (08/25/2018 1:30 PM CDT) Narrative Performed At * TRANSFUSION SERVICE REPORT - SCAN (08/24/2018 5:50 PM CDT) Only the most recent of 2 results within the time period is included. Narrative Performed At * Prepare RBC (08/22/2018 3:26 PM CDT) Unit ABO O Pos SAFETRACE TX UNIT NUMBER [id number] SAFETRACE TX Status WORK IN PROGRESS SAFETRACE TX Blood Bank Product RED BLOOD CELLS SAFETRACE TX PRODUCT CODE [id number] SAFETRACE TX Unit ABO O Neg SAFETRACE TX UNIT NUMBER [id number] SAFETRACE TX Status WORK IN PROGRESS SAFETRACE TX Blood Bank Product RED BLOOD CELLS SAFETRACE TX PRODUCT CODE [id number] SAFETRACE TX CROSSMATCH COMPATIBLE SAFETRACE TX CROSSMATCH COMPATIBLE SAFETRACE TX Specimen Performing Organization Address City/State/[facility] Phone Number SAFETRACE [place] * CBC (Hemogram only) (08/22/2018 5:12 AM CDT) WBC 12.0 (H) 3.5 - 10.5 K/L [facility] RBC 3.57 (L) 4.63 - 6.08 M/L [facility] Hemoglobin 9.9 (L) 13.7 - 17.5 GM/DL [facility] Hematocrit 30.7 (L) 40.1 - 51.0 % [facility] MCV 86.0 79.0 - 92.2 fL [facility] MCH 27.7 25.7 - 32.2 pg [facility] MCHC 32.2 (L) 32.3 - 36.5 GM/DL [facility] RDW 13.4 11.6 - 14.4 % [facility] Platelets 263 150 - 450 K/CU MM [facility] MPV 9.5 9.4 - 12.4 fL [facility] nRBC 0 0 - 0 /100 WBC [facility] Specimen Blood Performing Organization Address City/State/Zipcode Phone Number [facility] [address] [place] [address] MEDICAL [facility]ENTER * Manual Differential (08/21/2018 3:37 AM CDT) % Neutros 79 % [facility] % Lymphs 15 % [facility] % Monos 5 % [facility] % Atypical Lymphs 1 (H) 0 - 0 % [facility] # Neutros 9.24 (H) 1.78 - 5.38 K/ul [facility] # Lymphs 1.76 1.32 - 3.57 K/ul [facility] # Monos 0.59 0.30 - 0.82 K/uL [facility] # Atypical Lymphs 0.12 (H) 0.00 - 0.00 K/uL [facility] Total Counted 100 [facility] nRBC (manual) 2 (H) 0 - 0 /100 WBC [facility] WBC Morphology Normal [facility] Large Platelet Present [facility] Polychromasia 1+ few [facility] Hypochromia 1+ few [facility] Artifact Present [facility] Platelet Conc Adequate [facility] Specimen Blood Narrative Performed At Received comment: [facility] User comments: [facility] Slide comments: Performing Organization Address City/[facility] Phone Number [facility] [address] [place] [address] [facility] * CBC with platelet count + automated diff (08/21/2018 3:37 AM CDT) Only the most recent of 3 results within the time period is included. WBC 11.7 (H) 3.5 - 10.5 K/L [facility] RBC 3.45 (L) 4.63 - 6.08 M/L [facility] Hemoglobin 9.5 (L) 13.7 - 17.5 GM/DL [facility] Hematocrit 29.8 (L) 40.1 - 51.0 % [facility] MCV 86.4 79.0 - 92.2 fL [facility] MCH 27.5 25.7 - 32.2 pg [facility] MCHC 31.9 (L) 32.3 - 36.5 GM/DL [facility] RDW 13.5 11.6 - 14.4 % [facility] Platelets 234 150 - 450 K/CU MM [facility] MPV 9.1 (L) 9.4 - 12.4 fL [facility] nRBC 0 0 - 0 /100 WBC [facility] Specimen Blood Performing Organization Address City/State/Zipcode Phone Number [facility] [address] [place] [address] [facility] * Basic Metabolic Panel (08/21/2018 3:37 AM CDT) Only the most recent of 3 results within the time period is included. Sodium 139 136 - 145 meq/L [facility] Potassium 4.1 3.5 - 5.1 meq/L [facility] Chloride 108 (H) 98 - 107 meq/L [facility] CO2 25 22 - 29 meq/L [facility] BUN 11 7 - 21 mg/dL [facility] Creatinine 0.78 0.57 - 1.25 mg/dL [facility] Glucose 86 70 - 105 mg/dL [facility] Calcium 9.3 8.4 - 10.2 mg/dL [facility] EGFR 132Comment: ESTIMATED GFR IS mL/min/1.73 sq m [facility] NOT ACCURATE CREATININE [facility] CLEARANCE IN PREDICTING GLOMERULAR FILTRATION RATE. ESTIMATED GFR IS NOT APPLICABLE FOR DIALYSIS PATIENTS. Specimen Blood Performing Organization Address City/State/Zipcode Phone Number [facility] [address] [place] [address] MEDICAL CENTER * Transthoracic echo result (08/20/2018 8:49 PM CDT) Ejection Fraction [facility] Specimen Narrative Performed At Transthoracic Echocardiography Report (TTE) 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 Specimen Narrative Performed At FINAL REPORT GE RIS [...] 1:24 PM CDT) Case Report Surgical Pathology [facility] Report [facility] Case: [id number] Authorizing Provider:Lorene Boggs, Collected: 08/19/2018 1324 Ordering Location: [facility] Received: 08/19/2018 1453 SERVICES Pathologist: Juan Carlos Isaac MD Specimen:Femoral Head,Left Hip DIAGNOSIS PART A LEFT FEMORAL HEAD, [facility] ARTHROPLASTY FOR FRACTURE: [facility] DEGENERATIVE, PARTIALLY NECROTIC CHANGES IN BONE AND CARTILAGE. REACTIVE SYNOVIAL TISSUE. Signing Pathologist Direct Phone Line: [phone] CPT Code(s) 34242, 13043 [facility] CLINICAL HISTORY Left hip fracture [facility] SPECIMEN SOURCE Left femoral head [facility] GROSS DESCRIPTION The specimen is received in a [facility] fluidless container labeled [facility] with patient's information labeled "left femoral head" and consists of a distorted taylor-red femoral head measuring 4 x 3 x 3 cm. The base is sharply amputated. The articular surface has distinct osteophyte formation and pitting with eburnation. The specimen is flattened. Section code: A1 and A3, bone submitted for decalcification; A4, soft tissue and bone submitted for decalcification. CG/pl MICROSCOPIC DESCRIPTION PERFORMED. [facility] Specimen Tissue - Femoral Head,Left Hip Performing Organization Address [facility] Phone Number [address] [address] [facility] * Type and screen, automated (08/19/2018 4:43 AM CDT) ABO/RH AUTOMATED (BEAKER) O POSITIVE [facility] Ab Scrn NEGATIVE [facility] Specimen Blood Performing Organization Address City/[facility] Phone Number [facility] [address] [place] [address] [facility] * ECG 12 lead (08/18/2018 6:04 PM CDT) Specimen Narrative Performed At Ventricular Rate 74 BPM GE MUSE Atrial Rate 74 BPM P-R Interval 114 ms QRS Duration 80 ms Q-T Interval 384 ms QTC Calculation(Bazett) 426 ms P [place] 58 degrees R [place] 41 degrees T [place] 32 degrees Normal sinus rhythm Normal ECG [...] 384 ms QTC Calculation(Bazett) 426 ms P [place] 58 degrees R [place] 41 degrees T [place] 32 degrees Normal sinus rhythm Normal ECG When compared with ECG of 08-DEC-2015 07:36, No significant change was found Confirmed by Freida TERRELL MICHAEL ([id number]) on 08/18/2018 10:17:45 PM Performing Organization Address City/[facility] Phone Number [employer] MUSE * XR chest 1 view portable / bedside (08/18/2018 5:45 PM CDT) Specimen Narrative Performed At FINAL REPORT [facility] TECHNIQUE: Single view of the chest. COMPARISON: 02/03/2016 FINDINGS: The cardiac silhouette is within normal limits.Mediastinum is unremarkable. Lungs are clear.Osseous structures appear unremarkable. [place] project over the right neck presumably external to the patient. IMPRESSION: No acute cardiopulmonary disease. Signed: Shiraz Wong MD Report Verified Date/Time:08/18/2018 18:44:14 Reading Location: [facility] Reading Room Procedure Note Interface, External Ris In - 08/18/2018 6:46 PM CDT FINAL REPORT TECHNIQUE: Single view of the chest. COMPARISON: 02/03/2016 FINDINGS: The cardiac silhouette is within normal limits. Mediastinum is unremarkable. Lungs are clear. Osseous structures appear unremarkable. [place] project over the right neck presumably external to the patient. IMPRESSION: No acute cardiopulmonary disease. Signed: Shiraz Wong MD Report Verified Date/Time: 08/18/2018 18:44:14 Reading Location: [facility] Mammo Reading Room Performing Organization Address City/[facility] Phone Number [employer] RIS * PT/aPTT (08/18/2018 4:40 PM CDT) Protime 14.8 (H) 11.7 - 14.7 seconds [facility] INR 1.2 <=5.9 [facility] PTT 32.3 22.5 - 36.0 seconds [facility] Specimen Blood Narrative Performed At RECOMMENDED COUMADIN/WARFARIN INR THERAPY RANGES [facility] STANDARD DOSE: 2.0 - 3.0 Includes: PROPHYLAXIS for venous thrombosis, [facility] systemic embolization; TREATMENT for venous thrombosis and/or pulmonary embolus. HIGH RISK: Target INR is 2.5-3.5 for patients with mechanical heart valves. Performing Organization Address City/State/Zipcode Phone Number [facility] [address] [place] [address] MED[address] * CT abdomen/pelvis without iv contrast (08/18/2018 4:01 PM CDT) Specimen Narrative Performed At FINAL REPORT [facility] CT abdomen and pelvis without intravenous contrast. [...] MD Report Verified Date/Time:08/18/2018 16:12:06 Reading Location: [facility] Radiology Reading Room Procedure Note [...] Report Verified Date/Time: 08/18/2018 16:12:06 Reading Location: [facility] Radiology Reading Room Performing Organization Address [facility] Phone Number GE RIS * Urinalysis w/Microscopic + Reflex to Culture (08/18/2018 3:15 PM CDT) Color, UA Yellow [facility] Clarity, UA Hazy [facility] Specific [place], UA 1.018 1.001 - 1.035 [facility] pH, UA 5.5 5.0 - 8.0 [facility] Protein, UA 20 mg/dL (A) Negative [facility] Glucose, UA Negative Negative [facility] Ketones, UA Trace (A) Negative [facility] Bilirubin, UA Negative Negative [facility] Blood, UA Negative Negative [facility] Nitrite, UA Negative Negative [facility] Leukocytes, UA Negative Negative [facility] Urobilinogen, UA 3.0 (H) 0.2 - 1.0 mg/dL [facility] RBC, UA 6 /HPF [facility] WBC, UA 10 /HPF [facility] Mucus Moderate [facility] Crystals, Urine Occasional [facility] Yeast Few [facility] Specimen Source [facility] Specimen Urine Performing Organization Address [facility] Phone Number [facility] [address] [place] [address] MEDICAL CENTER * Urine culture (08/18/2018 3:15 PM CDT) Result 10-19,000 col/mL [facility] Beta-hemolytic streptococcus [facility] group B, by serological grouping (A) Specimen Urine Performing Organization Address [facility] Phone Number [facility] [address] [place] [address] [facility] * XR DXA Bone Density Study (07/28/2018 9:42 AM CDT) Specimen Narrative Performed At FINAL REPORT [facility] Bone mineral density study 07/28/2018. CLINICAL INDICATION: [...] MD Report Verified Date/Time:07/28/2018 10:46:13 Reading Location: [facility] Mammo Reading Room Procedure Note Interface, External [...] Report Verified Date/Time: 07/28/2018 10:46:13 Reading Location: [facility] Mammo Reading Room Performing Organization Address City/[facility] Phone Number GE RIS * XR shoulder complete 2 views min right (06/19/2018 1:12 PM CDT) Specimen Narrative Performed At FINAL REPORT GE RIS [...] CENTER Radiology Reading Room Performing Organization Address [facility] Phone Number [facility] * XR shoulder complete 2 views min left (06/19/2018 1:07 PM CDT) Specimen Narrative Performed At FINAL REPORT [facility] [...] 2 views right (03/05/2018 12:21 PM CDT) Specimen Narrative Performed At FINAL REPORT [facility] Lumbar spine five views, right hip two [...] MD Report Verified Date/Time:03/05/2018 12:24:44 Reading Location: [facility] Radiology Reading Room Procedure Note Interface, External [...] Report Verified Date/Time: 03/05/2018 12:24:44 Reading Location: [facility] Radiology Reading Room Performing Organization Address City/State/Zipcode Phone Number RIS * XR hip 2 views left (03/05/2018 12:21 PM CDT) Specimen Narrative Performed At FINAL REPORT [facility] Lumbar spine five views, right hip two [...] MD Report Verified Date/Time:03/05/2018 12:24:33 Reading Location: [facility] Radiology Reading Room Procedure Note Interface, External [...] Report Verified Date/Time: 03/05/2018 12:24:33 Reading Location: [facility] Radiology Reading Room Performing Organization Address City/[facility]/Zipcode Phone Number GE [facility]IS * XR spine lumbar complete 4 views min (03/05/2018 12:21 PM CDT) Specimen Narrative Performed At FINAL REPORT [facility] Lumbar spine five views, right hip two [...] MD Report Verified Date/Time:03/05/2018 12:24:33 Reading Location: [facility] Radiology Reading Room Procedure Note Interface, External [...] Report Verified Date/Time: 03/05/2018 12:24:33 Reading Location: [facility] Radiology Reading Room Performing Organization Address City/State/Zipcode Phone Number [facility] after 03/01/2018 Insurance Payer Benefit Subscriber ID Type Phone Address Plan / Group MEDICAID - MEDICAID [facility] xxxxxxxxx Medicaid CARE COMM STAR Contracted PLAN Advance Directives For more information, please contact: [facility] [address] [place] [address] Date Inactivated Comments Code Status Date Activated 08/22/2018 5:26 PM Full Code 08/18/2018 5:50 PM This code status was determined by: Patient 12/10/2015 5:17 PM Full Code 12/08/2015 1:29 PM This code status was determined by: Patient 06/05/2014 6:14 PM Full Code 05/28/2014 3:37 PM This code status was determined by: Patient
--- OUTSIDE RECORDS SUMMARY | 2019-03-02 07:22 | XMS REPORT | Clinical Summary ---
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 Signed By: Carlyn Ogden MD, 08/08/2018 7:22 PM Narrative Performed At EXAM:XRAY HIP UNILATERAL 2/3 VIEWS [facility] DATE:08/08/2018 7:14 PM INDICATION:severe left hip pain [...] PM Performing Organization Address City/State/Zipcode Phone Number [facility] after 03/01/2018 Insurance Type Payer Benefit Subscriber ID Effective Phone Address Plan / Dates Group [facility] xxxxxxxxx 2012-P [phone] [address] [facility] [id number] [place] [address]
[2019-03-02] MEDS ORDERED: CEFAZOLIN SOD 1 GM/NS 50ML 50 ML IV ONE (07:52)
[2019-03-02] MEDS ORDERED: VANCOMYCIN HCL 500 MG ONE (09:23)
[2019-03-02] MEDS ORDERED: BACITRACIN 50,000 UNIT VIAL ONE (09:23)
[2019-03-02] MEDS ORDERED: TRANEXAMIC ACID 1,000 MG/10 ML ML ONE (09:23)
[2019-03-02] MEDS ORDERED: SODIUM CHLORIDE 0.9% 500ML 500 ML ONE (09:24)
[2019-03-02] MEDS ORDERED: BUPIVACAINE 0.5%/EPI 30 ML SDV INJ ONE (10:38)
[2019-03-02] MEDS ORDERED: IBUPROFEN 800MG/ 250ML 250 ML IV ONE (11:12)
[2019-03-02] MEDS ORDERED: MIDAZOLAM HCL 2 MG/2 ML VIAL ONE (12:16)
[2019-03-02] MEDS ORDERED: FENTANYL CITRATE/PF 100MCG/2 ML INJ ONE ×2 (12:16→17:11)
[2019-03-02] MEDS ORDERED: HYDROMORPHONE 2MG/ML 2 MG/ML ML ONE (12:41)
[2019-03-02] MEDS ORDERED: HYDRALAZINE HCL 20 MG/ML VIAL ONE (12:41)
[2019-03-02] MEDS ORDERED: HYDROCODONE/APAP 5MG-325MG TAB PO PRN (12:45)
[2019-03-02] MEDS ORDERED: DOCUSATE SODIUM 100 MG CAP PO PRN (12:45)
[2019-03-02] MEDS ORDERED: KETOROLAC TROMETHAMINE 30 MG/ML VIAL IV PRN (12:45)
[2019-03-02] MEDS ORDERED: ONDANSETRON HCL INJ 2MG/ML 2ML 2 MG/ML VIAL IV PRN (12:45)
[2019-03-02] MEDS ORDERED: PROMETHAZINE HCL (IM) 25 MG/ML VIAL INJ PRN (12:45)
[2019-03-02] MEDS ORDERED: ACETAMINOPHEN 650 MG SUPP PR PRN (12:45)
[2019-03-02] MEDS ORDERED: ZOLPIDEM TARTRATE 5 MG TAB PO PRN (12:45)
--- OUTSIDE RECORDS SUMMARY | 2019-03-02 12:50 | XMS REPORT | Clinical Summary ---
Author Author RAVI [facility] Address Unknown Phone Unavailable Care Team Providers Care Plastics Patternmaker Name Role Phone Pcp, No PCP Unavailable [...] Lot Implanted Type Area Manufactur er 05/20/2023 [id number] / N/A / 7DN Scr Low Profile 6.5x25mm [id number] Fracture/F Left: Hip LULU:ST - Sn/A ixation CARLOS EDUARDO Implanted: Qty: 1 on 08/19/2018 by Lorene Lozano MD 05/20/2023 [id number] / N/A / 7DN Scr Low Profile 6.5x25mm [id number] Fracture/F Left: Hip LULU:ST - Sn/A ixation CARLOS EDUARDO Implanted: Qty: 1 on 08/19/2018 by Lorene Lozano MD 06/18/2023 702-04-52E / N/A / [id number] Trident Ii Tri Clusterhole 52e Joints Left: Hip LULU 702--52e - Sn/A ORTHO CAP Implanted: Qty: 1 on 08/19/2018 by Lorene Boggs MD 07/01/2023 623-00-36E / N/A / [id number] Insrt Trident X3 0deg 36mm Joints Left: Hip LULU:ST 623-00-36e - Sn/A CARLOS EDUARDO Implanted: Qty: 1 on 08/19/2018 by Lorene Lozano MD 05/19/2023 6570-0-136 / N/A / [id number] Head Fem Ceramic V40 36mm Joints Left: Hip LULU:ST 6570-0-136 - Sn/A CARLOS EDUARDO Implanted: Qty: 1 on 08/19/2018 by Lorene Lozano MD 06/22/2023 [id number] / N/A / [id number] Hip Stem Accolade Ii 127d 5 - Sn/A Joints Left: Hip LULU:ST Implanted: Qty: 1 on 08/19/2018 by Lorene Khalil MD [facility] Procedures Comments Procedure Name Priority Date/Time Associated [...] ms QTC Calculatio n(Bazett) 426 ms P [place] 58 degrees R [place] 41 degrees T [place] 32 degrees Normal sinus rhythm Normal ECG [...] ABO O Pos SAFETRACE TX UNIT NUMBER [id number] SAFETRACE TX Status WORK IN PROGRESS SAFETRACE TX Blood Bank Product RED BLOOD CELLS SAFETRACE TX PRODUCT CODE D5741H25 SAFETRACE TX Unit ABO O Neg SAFETRACE TX UNIT NUMBER [id number] SAFETRACE TX Status WORK IN PROGRESS SAFETRACE TX Blood Bank Product RED BLOOD CELLS SAFETRACE TX PRODUCT CODE [id number] SAFETRACE TX CROSSMATCH COMPATIBLE SAFETRACE TX CROSSMATCH COMPATIBLE SAFETRACE TX Specimen Performing Organization Address City/State/[facility] Phone Number SAFETRACE TX * CBC (Hemogram only) (08/22/2018 5:12 AM CDT) WBC 12.0 (H) 3.5 - 10.5 K/L [facility] RBC 3.57 (L) 4.63 - 6.08 M/L [facility] Hemoglobin 9.9 (L) 13.7 - 17.5 GM/DL [facility] Hematocrit 30.7 (L) 40.1 - 51.0 % [facility] MCV 86.0 79.0 - 92.2 fL [facility] MCH 27.7 25.7 - 32.2 pg [facility] MCHC 32.2 (L) 32.3 - 36.5 GM/DL [facility] RDW 13.4 11.6 - 14.4 % [facility] Platelets 263 150 - 450 K/CU MM [facility] MPV 9.5 9.4 - 12.4 fL [facility] nRBC 0 0 - 0 /100 WBC [facility] Specimen Blood Performing Organization Address City/State/Zipcode Phone Number [facility] [address] [place] [address] MEDICAL CENTER * Manual Differential (08/21/2018 3:37 AM CDT) % Neutros 79 % [facility] % Lymphs 15 % [facility] % Monos 5 % [facility] % Atypical Lymphs 1 (H) 0 - 0 % [facility] # Neutros 9.24 (H) 1.78 - 5.38 K/ul [facility] # Lymphs 1.76 1.32 - 3.57 K/ul [facility] # Monos 0.59 0.30 - 0.82 K/uL [facility] # Atypical Lymphs 0.12 (H) 0.00 - 0.00 K/uL [facility] Total Counted 100 [facility] nRBC (manual) 2 (H) 0 - 0 /100 WBC [facility] WBC Morphology Normal [facility] Large Platelet Present [facility] Polychromasia 1+ few [facility] Hypochromia 1+ few [facility] Artifact Present [facility] Platelet Conc Adequate [facility] Specimen Blood Narrative Performed At Received comment: [facility] User comments: [facility] Slide comments: Performing Organization Address City/[facility] Centercode Phone Number [facility] [address] [place] [address] [facility] * CBC with platelet count + automated diff (08/21/2018 3:37 AM CDT) Only the most recent of 3 results within the time period is included. WBC 11.7 (H) 3.5 - 10.5 K/L [facility] RBC 3.45 (L) 4.63 - 6.08 M/L [facility] Hemoglobin 9.5 (L) 13.7 - 17.5 GM/DL [facility] Hematocrit 29.8 (L) 40.1 - 51.0 % [facility] MCV 86.4 79.0 - 92.2 fL [facility] MCH 27.5 25.7 - 32.2 pg [facility] MCHC 31.9 (L) 32.3 - 36.5 GM/DL [facility] RDW 13.5 11.6 - 14.4 % [facility] Platelets 234 150 - 450 K/CU MM [facility] MPV 9.1 (L) 9.4 - 12.4 fL [facility] nRBC 0 0 - 0 /100 WBC [facility] Specimen Blood Performing Organization Address City/State/Zipcode Phone Number [facility] [address] [place] [address] [facility] * Basic Metabolic Panel (08/21/2018 3:37 AM CDT) Only the most recent of 3 results within the time period is included. Sodium 139 136 - 145 meq/L [facility] Potassium 4.1 3.5 - 5.1 meq/L [facility] Chloride 108 (H) 98 - 107 meq/L [facility] CO2 25 22 - 29 meq/L [facility] BUN 11 7 - 21 mg/dL [facility] Creatinine 0.78 0.57 - 1.25 mg/dL [facility] Glucose 86 70 - 105 mg/dL [facility] Calcium 9.3 8.4 - 10.2 mg/dL [facility] EGFR 132Comment: ESTIMATED GFR IS mL/min/1.73 sq m [facility] NOT ACCURATE CREATININE [facility] CLEARANCE IN PREDICTING GLOMERULAR FILTRATION RATE. ESTIMATED GFR IS NOT APPLICABLE FOR DIALYSIS PATIENTS. Specimen Blood Performing Organization Address City/State/Zipcode Phone Number [facility] [address] [place] [address] MEDICAL CENTER * Transthoracic echo result (08/20/2018 8:49 PM CDT) Ejection Fraction [facility] Specimen Narrative Performed At Transthoracic Echocardiography Report (TTE) [facility] Demographics [facility] Patient Name RACHAEL Vera Date of Study 08/20/2018 [id number] Male Visit Number [id number] Room Number Number Date of Birth1975Referring Physician Age43 year(s)Business 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 Caleb Aleman Interpreting Wilmer Diego, Physician Fellow [...] of Study 08/20/2018 Gender Male Visit Number [id number] Race Unknown Room Number Number Date of 1975 Referring Physician Age 43 year(s) 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 Case: [id number] Authorizing Provider:Lorene Boggs, Collected: 08/19/2018 1324 Ordering Location: [facility]IVE Received: 08/19/2018 1453 SERVICES Pathologist: Juan Carlos Isaac MD Specimen:Femoral Head,Left Hip DIAGNOSIS PART A LEFT FEMORAL HEAD, [facility] ARTHROPLASTY FOR FRACTURE: [facility] DEGENERATIVE, PARTIALLY NECROTIC CHANGES IN BONE AND CARTILAGE. REACTIVE SYNOVIAL TISSUE. Signing Pathologist Direct Phone Line: [phone] CPT Code(s) 73317, [address] [facility] CLINICAL HISTORY Left hip fracture [facility] SPECIMEN SOURCE Left femoral head [facility] GROSS DESCRIPTION The specimen is received in a [facility] fluidless container labeled [facility] [...] submitted for decalcification. CG/pl MICROSCOPIC DESCRIPTION PERFORMED. [facility] Specimen Tissue - Femoral Head,Left Hip Performing Organization Address [facility] Phone Number [address] [address] [facility] * Type and screen, automated (08/19/2018 4:43 AM CDT) ABO/RH AUTOMATED (BEAKER) O POSITIVE [facility] Ab Scrn NEGATIVE [facility] Specimen Blood Performing Organization Address City/[facility] Centercode Phone Number [facility] [address] [place] [address] [facility] * ECG 12 lead (08/18/2018 6:04 PM CDT) Specimen Narrative Performed At Ventricular Rate 74 BPM GE MUSE Atrial Rate 74 BPM P-R Interval 114 ms QRS Duration 80 ms Q-T Interval 384 ms QTC Calculation(Bazett) 426 ms P Chat[place] 58 degrees R [place] 41 degrees T [place] 32 degrees Normal sinus rhythm Normal ECG [...] 384 ms QTC Calculation(Bazett) 426 ms P [place] 58 degrees R [place] 41 degrees T [place] 32 degrees Normal sinus rhythm Normal ECG When compared with ECG of 08-DEC-2015 07:36, No significant change was found Confirmed by Freida TERRELL MICHAEL ([id number]) on 08/18/2018 10:17:45 PM Performing Organization Address City/[facility] Cent[facility]ode Phone Number [employer] MUSE * XR chest 1 view portable / bedside (08/18/2018 5:45 PM CDT) Specimen Narrative Performed At FINAL REPORT [employer] TECHNIQUE: Single view of the chest. COMPARISON: 02/03/2016 FINDINGS: The cardiac silhouette is within normal limits.Mediastinum is unremarkable. Lungs are clear.Osseous structures appear unremarkable. [place] project over the right neck presumably external to the patient. IMPRESSION: No acute cardiopulmonary disease. Signed: Shiraz Wong MD Report Verified Date/Time:08/18/2018 18:44:14 Reading Location: [facility] Reading Room Procedure Note Interface, External Ris [...] Report Verified Date/Time: 08/18/2018 18:44:14 Reading Location: [facility] Mammo Reading Room Performing Organization Address City/[facility] Centercode Phone Number [facility] RIS * PT/aPTT (08/18/2018 4:40 PM CDT) Protime 14.8 (H) 11.7 - 14.7 seconds [facility] INR 1.2 <=5.9 [facility] PTT 32.3 22.5 - 36.0 seconds [facility] Specimen Blood Narrative Performed At RECOMMENDED COUMADIN/WARFARIN INR THERAPY RANGES [facility] STANDARD DOSE: 2.0 - 3.0 Includes: PROPHYLAXIS for venous thrombosis, [facility] systemic embolization; TREATMENT for venous thrombosis and/or pulmonary embolus. HIGH RISK: Target INR is 2.5-3.5 for patients with mechanical heart valves. Performing Organization Address City/State/Zipcode Phone Number [facility] [address] [place] [address] [facility] * CT abdomen/pelvis without iv contrast (08/18/2018 4:01 PM CDT) Specimen Narrative Performed At FINAL REPORT [facility] CT abdomen and pelvis without intravenous contrast. [...] left femoral head and neck. Signed: Cameron uZñiga MD Report Verified Date/Time:08/18/2018 16:12:06 Reading Location: [facility] Radiology Reading Room Procedure Note Interface, [...] Report Verified Date/Time: 08/18/2018 16:12:06 Reading Location: [facility] Radiology Reading Room Performing Organization Address [facility] Cent[facility]ode Phone Number GE RIS * Urinalysis w/Microscopic + Reflex to Culture (08/18/2018 3:15 PM CDT) Color, UA Yellow [facility] Clarity, UA Hazy [facility] Specific [place], UA 1.018 1.001 - 1.035 [facility] pH, UA 5.5 5.0 - 8.0 [facility] Protein, UA 20 mg/dL (A) Negative [facility] Glucose, UA Negative Negative [facility] Ketones, UA Trace (A) Negative [facility] Bilirubin, UA Negative Negative [facility] Blood, UA Negative Negative [facility] Nitrite, UA Negative Negative [facility] Leukocytes, UA Negative Negative [facility] Urobilinogen, UA 3.0 (H) 0.2 - 1.0 mg/dL [facility] RBC, UA 6 /HPF [facility] WBC, UA 10 /HPF [facility] Mucus Moderate [facility] Crystals, Urine Occasional [facility] Yeast Few [facility] Specimen Source [facility] Specimen Urine Performing Organization Address [facility] Centercode Phone Number [facility] [address] [place] [address] MEDICAL CENTER * Urine culture (08/18/2018 3:15 PM CDT) Result 10-19,000 col/mL [facility] Beta-hemolytic streptococcus [facility] group B, by serological grouping (A) Specimen Urine Performing Organization Address [facility] Centercode Phone Number [facility] [address] [place] [address] [facility] * XR DXA Bone Density Study (07/28/2018 9:42 AM CDT) Specimen Narrative Performed At FINAL REPORT [facility] Bone mineral density study 07/28/2018. CLINICAL INDICATION: [...] MD Report Verified Date/Time:07/28/2018 10:46:13 Reading Location: [facility] Mammo Reading Room Procedure Note Interface, External [...] Report Verified Date/Time: 07/28/2018 10:46:13 Reading Location: [facility] Mammo Reading Room Performing Organization Address City/[facility] Phone Number GE RIS * XR shoulder [...] MD Report Verified Date/Time:06/19/2018 13:27:48 Reading Location: [facility] Radiology Reading Room Procedure Note Interface, [...] Report Verified Date/Time: 06/19/2018 13:27:48 Reading Location: [facility] Radiology Reading Room Performing Organization Address [facility] Phone Number GE RIS * XR shoulder [...] MD Report Verified Date/Time:06/19/2018 13:27:48 Reading Location: [facility] Radiology Reading Room Procedure Note Interface, [...] Report Verified Date/Time: 06/19/2018 13:27:48 Reading Location: [facility] Radiology Reading Room Performing Organization Address [...] Report Verified Date/Time: 03/05/2018 12:24:44 Reading Location: [facility] Radiology Reading Room Performing Organization Address City/State/Zipcode Phone Number RIS * XR hip 2 views left (03/05/2018 12:21 PM CDT) Specimen Narrative Performed At FINAL REPORT [facility] Lumbar spine five views, right hip two [...] MD Report Verified Date/Time:03/05/2018 12:24:33 Reading Location: [facility] Radiology Reading Room Procedure Note Interface, External [...] Report Verified Date/Time: 03/05/2018 12:24:33 Reading Location: [facility] Radiology Reading Room Performing Organization Address City/[facility]/Zipcode Phone Number GE RIS * XR [...] MD Report Verified Date/Time:03/05/2018 12:24:33 Reading Location: [facility] Radiology Reading Room Procedure Note Interface, External [...] Report Verified Date/Time: 03/05/2018 12:24:33 Reading Location: [facility] Radiology Reading Room Performing Organization Address City/State/Zipcode Phone Number GE RIS after 03/01/2018 Insurance Payer Benefit Subscriber ID Type Phone Address Plan / Group MEDICAID - MEDICAID [facility] xxxxxxxxx Medicaid CARE COMM STAR Contracted PLAN Advance Directives For more information, please contact: [facility] [address] [place] [address] Date Inactivated Comments Code Status Date Activated 08/22/2018 5:26 PM Full Code 08/18/2018 5:50 PM This code status was determined by: Patient 12/10/2015 5:17 PM Full Code 12/08/2015 1:29 PM This code status was determined by: Patient 06/05/2014 6:14 PM Full Code 05/28/2014 3:37 PM This code status was determined by: Patient
--- OUTSIDE RECORDS SUMMARY | 2019-03-02 12:50 | XMS REPORT | Clinical Summary ---
Author Author [facility] Organization [facility] Address Unknown Phone Unavailable Care Team Providers Care Java Analyst Name Role Phone PCP Unavailable Allergies No [...] Performed At EXAM:XRAY HIP UNILATERAL 2/3 VIEWS [facility] DATE:08/08/2018 7:14 PM INDICATION:severe left hip [...] PM Performing Organization Address City/State/Zipcode Phone Number [facility] after 03/01/2018 Insurance Type Payer Benefit Subscriber ID Effective Phone Address Plan / Dates Group [employer] xxxxxxxxx 2012-P [phone] [facility] [address] [place] [address]
--- NOTE | 2019-03-02 13:38 | NUR ---
RK SPOKE TO DR. BRANDT'S POWER PRESS SUPERVISOR KIERAN. PATIENT WILL NOT NEED HOME HEALTH. ORDER WAS PLACED BY MISTAKE A STANDING ORDER. DR. BRANDT CONFIRMED. HOME HEALTH ORDER CANCELLED.
[2019-03-02 14:00] VITALS: BP 170/86
[2019-03-02] MEDS ORDERED: CEFAZOLIN SOD 1 GM/NS 50ML 50 ML IV SCH (14:00)
[2019-03-02] MEDS: SODIUM CHLORIDE 0.9% 1000ML 1,000 ML IV SCH ×2 (15:12→22:35)
[2019-03-02] MEDS: HYDROCODONE/APAP 7.5MG-325MG 1 EA TAB PO PRN ×3 (15:12→20:12)
[2019-03-02] MEDS: DIPHENHYDRAMINE HCL INJ 50 MG/ML VIAL IM/IV PRN ×2 (15:16→21:50)
[2019-03-02 15:23] VITALS: BP 170/86
[2019-03-02 16:49] VITALS: BP 182/89
[2019-03-02] MEDS: CEFAZOLIN SOD 1 GM/NS 50ML 50 ML IV SCH ×2 (16:49→23:59)
[2019-03-02] MEDS: ASPIRIN 325 MG TAB PO SCH (16:49)
[2019-03-02] MEDS: CELECOXIB 100 MG CAP PO SCH (16:49)
[2019-03-02] MEDS ORDERED: DEXAMETHASONE SOD PHOS INJ 4 MG/ML VIAL ONE (17:11)
[2019-03-02] MEDS ORDERED: ONDANSETRON HCL INJ 2MG/ML 2ML 2 MG/ML VIAL ONE (17:11)
[2019-03-02] MEDS ORDERED: NEOSTIGMINE 5 MG/5ML SYR ONE (17:11)
[2019-03-02] MEDS ORDERED: PROPOFOL IV EMULSION 10 MG/ML 20 ML VIAL ONE (17:11)
[2019-03-02] MEDS ORDERED: LIDOCAINE HCL 2% LOCAL INJ 5 ML SDV VIAL INJ ONE (17:11)
[2019-03-02] MEDS ORDERED: ROCURONIUM BROMIDE 10 MG/ML 5ML VIAL ONE (17:11)
[2019-03-02] MEDS ORDERED: GLYCOPYRROLATE INJ 1MG/ 5 ML SYR ONE (17:11)
[2019-03-02] MEDS ORDERED: EYE LUBRICANT OPTH OINT 3.5GM TUBE OP ONE (17:11)
[2019-03-02] MEDS ORDERED: SEVOFLURANE INHAL SOLN 250 ML PEN BTL ONE (17:11)
[2019-03-02] MEDS: CARVEDILOL 12.5 MG TAB PO SCH (17:15)
[2019-03-02] MEDS ORDERED: CLONIDINE HCL 0.1 MG TAB PO PRN (17:15)
[2019-03-02] MEDS: ACETAMINOPHEN 1000 MG/100 ML IV SCH ×2 (17:35→23:38)
--- NOTE | 2019-03-02 17:36 | NUR ---
PT BP ELEVATED 182/[address] ARAGON RECEIVED ORDERS TO CONTINUE HOME MEDICATION CARVEDILOL AND PRN CLONIDINE. PT STATES HE ALREADY TOOK HIS OWN CARVEDILOL THIS MORNING AND REFUSES TO TAKE CLONIDINE. PT STATES HE DOES NOT WANT TO TAKE ANY NEW MEDICATION. C/O PAIN TO RIGHT SHOULDER IT IS TOO SOON FOR NORCO, REFUSES IV TORADOL. OKAY WITH RECEIVING SCHEDULED APAP FOR NOW.
[2019-03-02 20:00] VITALS: BP 146/93
--- NOTE | 2019-03-02 20:13 | NUR ---
DRESSING DRY AND INTACT TO THE RIGHT SHOULDER WITHOUT BLEEDING, PATIENT C/O PAIN TO THE SITE WITH PAIN SCORE #8, MEDICATED WITH NORCO 1 TAB ORDERED. ASSISTED WITH ADLS, CALL LIGHT WITHIN EASY REACH, HE'S INSTRUCTED TO CALL FOR ASSISTANCE NEEDED.
--- NOTE | 2019-03-02 20:49 | Operative Report ---
DATE OF PROCEDURE: 03/02/2019 SURGEON: Jourdan Poon MD HABILITATIVE INTERVENTIONIST: Ky Dumont PA-C. PREOPERATIVE DIAGNOSIS: Osteonecrosis, right humerus. POSTOPERATIVE DIAGNOSIS: Osteonecrosis, right humerus. PROCEDURE: Right shoulder hemiarthroplasty. INDICATIONS: The patient is a 43-year-old gentleman, who has osteonecrosis of both shoulders. He is more symptomatic on his right. This has progressed to cause complete collapse of the humeral head. The findings and options have been discussed. We planned on a right shoulder hemiarthroplasty. The risks and benefits were explained. He stated he understood and wished to proceed. DESCRIPTION OF PROCEDURE: The patient was brought to the operating room and placed under general anesthetic. He received a regional block and prophylactic antibiotics in the holding area. He was positioned in the beach chair position on the shoulder table. His right upper extremity was prepped and draped in a sterile manner. A preoperative time-out was performed. I attempted to manipulate the shoulder prior to the surgery. His shoulder motion was severely restricted. He had approximately 50 degrees of abduction and elevation. There was no release with an attempt at manipulation. We elected to proceed with the surgery. A 10 mL of 0.25% Marcaine with epinephrine had been injected in the subcutaneous tissue of the axillary fold. The incision was made and the deltopectoral interval was identified and propagated. The proximal insertion of the pectoralis major was released. Again, the muscles and soft tissue were quite severely contracted around the shoulder. The anterior capsule was carefully exposed and a self retraining Medeiros Hunter retractor was placed. The inferior leash of vessels was ligated. The capsule and subscapularis complex were released in one layer. This was carried under to release the inferior capsule. The rotator interval was released. The humerus was carefully brought out into external rotation. Mobilization and soft tissue exposure were quite challenged. Ultimately, the collapsed humeral head could be protruded slightly from the wound. An oscillating saw was used to resect the remainder of the humeral head in about 30-degrees of retroversion. Tag stitches had been placed into the subscapularis and capsular complex. Taper pin reamers were used to establish entry to the humeral canal. Broaches from the [employer] shoulder replacement system were used. A size 12 stem had good canal fill and stability. A 44 mm x 15 mm head was trialed. Multiple attempts were made to reduce the shoulder. We ended up having to perform additional capsular releases. The shoulder could be ultimately reduced. It appeared to have good stability. The trial implants were removed. A portion of a pre-mixed pericapsular injection was placed around the soft tissue. The shoulder was thoroughly irrigated with sterile saline. A spray bottle with a mixture of diluted polymyxin and vancomycin spray was used throughout the case. The stem was assembled on the back table and seated. The humeral head was placed onto the stem. A final reduction was performed. Drill holes had been placed into the proximal humerus for transosseous repair of the capsular-subscapularis complex. The rotator interval was repaired with #1 Ethibond. The skin was closed with subcuticular Vicryl and sherrell. The cephalic vein remained intact throughout the case. A sterile bandage was applied. The patient was placed into an UltraSling. He was extubated and transported to the recovery room in stable condition. Estimated blood loss was 50 mL. At the end of the procedure, all needle and sponge counts were correct. Jourdan Poon MD DR/DRE /[id number]
--- NOTE | 2019-03-02 21:14 | NUR ---
PATIENT REQUEST SLEEP AID, WENT TO ADMINISTER AMBIEN ORDERED BUT HE REFUSED IT AND STATED "I PREFER BENADRYL BECAUSE THAT'S WHAT I TAKE AT HOME." HE'S AMBULATING IN THE [place] NOW, HE WAS TOLD THAT THE BENADRYL WILL BE ADMINISTER ONCE HE'S BACK IN HIS ROOM IN BED.
[2019-03-02 22:03] VITALS: BP 146/93
--- NOTE | 2019-03-02 23:40 | NUR ---
PATIENT C/O PAIN TO THE RIGHT SHOULDER WITH PAIN SCORE #6, MEDICATED WITH SCHEDULE IV TYLENOL ORDERED. ASSISTED WITH ADLS, WARM BLANKET GIVEN, CALL LIGHT WITHIN EASY REACH.
[2019-03-03] VITALS: BP 156/97
--- NOTE | 2019-03-03 00:25 | NUR ---
PATIENT PULL OUT HIS IV BY ACCIDENT WHILE GOING TO USE THE RESTROOM, MODERATE AMOUNT OF BLOOD OBSERVED ON THE FLOOR AND IN THE RESTROOM. CATHETER TIP INTACT, GOOD HOUSE KEEPING PERFORMED. IV #20 INSERTED TO THE LEFT FOREARM, PROCEDURE TOLERATED WELL AND IV ANTIBIOTIC INFUSING ORDERED.
[2019-03-03] MEDS: HYDROCODONE/APAP 7.5MG-325MG 1 EA TAB PO PRN ×3 (00:57→08:58)
--- NOTE | 2019-03-03 03:49 | NUR ---
WALKING ROUNDS MADE, PATIENT OBSERVED SOUNDLY ASLEEP WITHOUT RESPIRATORY DISTRESS. CALL LIGHT WITHIN EASY REACH, DRESSING REMAINS DRY AND INTACT TO THE RIGHT SHOULDER.
[2019-03-03 04:00] VITALS: BP 188/84
--- NOTE | 2019-03-03 05:40 | NUR ---
PATIENT REFUSED IV TYLENOL ORDERED, HE STATED "I PREFER TO TAKE NORCO INSTEAD OF THE TYLENOL." DRESSING REMAINS DRY AND INTACT TO THE RIGHT SHOULDER WITHOUT BLEEDING.
[2019-03-03 05:49] LABS: HEMATOCRIT 36.9 % (38.2-49.6); HEMOGLOBIN 11.8 g/dL (14.0-18.0)
[2019-03-03] MEDS: ACETAMINOPHEN 1000 MG/100 ML IV SCH (06:00)
[2019-03-03] MEDS: ASPIRIN 325 MG TAB PO SCH (07:50)
[2019-03-03] MEDS: SODIUM CHLORIDE 0.9% 1000ML 1,000 ML IV SCH (07:50)
[2019-03-03] MEDS: CEFAZOLIN SOD 1 GM/NS 50ML 50 ML IV SCH (07:50)
[2019-03-03] MEDS: CELECOXIB 100 MG CAP PO SCH (07:50)
[2019-03-03] MEDS: CARVEDILOL 12.5 MG TAB PO SCH (08:18)
[2019-03-03 08:21] VITALS: BP 170/91
--- NOTE | 2019-03-03 08:58 | NUR ---
DRESSING CHANGE TO RIGHT SHOULDER DONE. ABD PAD AND TAPE APPLIED. D/C INSTRUCTIONS GIVEN. PT VERBALIZED UNDERSTANDING. LEFT FA IV D/C AND PRESSURE DRESSING APPLIED. PT AWAITING RIDE HOME.
[2019-03-03] MEDS ORDERED: ONDANSETRON HCL 4 MG ORAL DISINTEGRATING TAB PO PRN (09:00)
[2019-03-03] MEDS ORDERED: PREDNISONE 20 MG TAB PO SCH (09:00)
[2019-03-03] MEDS ORDERED: ACETAMINOPHEN 1000 MG/100 ML IV PRN (12:45)
--- NOTE | 2019-03-03 12:51 | Consultation ---
DATE OF CONSULTATION: REASON FOR CONSULTATION: Postop medical management. HISTORY OF PRESENT ILLNESS: The patient is a 43-year-old gentleman with a history of lupus and hypertension and reflux disease, who presents status post right shoulder surgery for osteonecrosis of the right shoulder and I am seeing him for postoperative care. Currently, the patient complains of left shoulder pain. Denies any chest pain, fever, chills, nausea, vomiting, headache, or shortness of breath on review of systems. PAST MEDICAL HISTORY: Lupus, hypertension, and reflux disease. MEDICATIONS: Carvedilol, hydrocodone, losartan, Protonix, and prednisone. ALLERGIES: NONE. SOCIAL HISTORY: Less than mfq-znpf-jfz-day smoker. He is single. FAMILY HISTORY: Noncontributory. PHYSICAL EXAMINATION: VITAL SIGNS: Temperature 96.9, pulse 66, blood pressure 156/97, and sats 100% on room air. GENERAL: He is no apparent distress, lying in bed. There is a right shoulder brace on. NECK: Supple. No lymphadenopathy. CARDIOVASCULAR: Regular rate and rhythm. LUNGS: Clear to auscultation bilaterally. ABDOMEN: Good bowel sounds. Soft, nontender. EXTREMITIES: No clubbing or cyanosis. NEUROLOGIC: Nonfocal. ASSESSMENT AND PLAN: 1. Right shoulder pain. Continue with postoperative pain medicines. 2. Reflux disease. Continue with his proton pump inhibitor. 3. Anemia. Continue with monitoring. 4. Hypertension. Continue with his home medications. Monitoring the blood pressure. 5. Systemic lupus erythematosus. Continue with his home medication on discharge. Please see hospital chart for full details. MD MELINDA Mendoza/DRE /[id number]
== END 2019-03-03 09:29 | disposition home or self-care (01) | DRG 483 ==
LOC: OR 07:19 → PACU V 12:38 → MED/SURG 14:01
PROVIDERS: ADMIT Specialist; ATTEND Specialist
PROC: 0RRJ0J6 Replacement of Right Shoulder Joint with Synthetic Substitute, Humeral Surface, Open Approach (ICD-10-PCS; principal; 2019-03-02 09:30)
DX: M87.811 Other osteonecrosis, right shoulder (principal); M19.011 Primary osteoarthritis, right shoulder; M19.012 Primary osteoarthritis, left shoulder; M84.822 Other disorders of continuity of bone, left humerus; M84.821 Other disorders of continuity of bone, right humerus; I10 Essential (primary) hypertension; Z72.0 Tobacco use; K21.9 Gastro-esophageal reflux disease without esophagitis; D64.9 Anemia, unspecified; M32.9 Systemic lupus erythematosus, unspecified
CPT/HCPCS: 36415; 85014; 85018; 93005; 96367; 96376; C1713; J0171; J0360; J0690; J1100; J1200; J1885; J2001; J2250; J2405; J2795; J3370; J7030; J7040; J7512

== ENCOUNTER 2019-06-01 06:18 | Observation (INO) | payer OTHER ==
[2019-05-29 11:05] LABS: BASOPHILS % 0.1 % (0.0-1.0); HEMATOCRIT 41.4 % (38.2-49.6); HEMOGLOBIN 13.5 g/dL (14.0-18.0); LYMPHOCYTES # (AUTO) 0.7 (1.0-3.2); LYMPHOCYTES % 5.3 % (18.0-39.1); MEAN CORPUSCULAR HEMOGLOBIN 27.3 pg (28-32); MEAN CORPUSCULAR HGB CONC 32.6 g/dL (31-35); MEAN CORPUSCULAR VOLUME 83.6 fL (81-99); MONOCYTES # (AUTO) 0.4 (0.2-0.8); MONOCYTES % 2.8 % (4.4-11.3); NEUTROPHILS # (AUTO) 12.2 (2.1-6.9); NEUTROPHILS % 91.3 % (38.7-80.0); PLATELET COUNT 264 x10e3/uL (140-360); RED BLOOD COUNT 4.95 x10e6/uL (4.3-5.7); RED CELL DISTRIBUTION WIDTH 15.3 % (11.7-14.4)
[~2019-06-01] VITALS: Ht 167.6 cm; Wt 73.5 kg
[~2019-06-01 06:18] MED LIST changes: -ROPIVACAINE 246.25 MG, EPINEPHRINE HCL 1:1000 1ML 0.5 MG, CLONIDINE HCL 0.08 MG, KETORO... INJ ONE
--- OUTSIDE RECORDS SUMMARY | 2019-06-01 06:23 | XMS REPORT | Clinical Summary ---
Author Author RAVI [facility]gusCarib[facility] HospitalHokey PokeyUniversity [facility] Hospital Address Unknown Phone Unavailable Care Team Providers Care [employer] Department Head Name Role Phone Pcp, No PCP Unavailable [...] disorder; Essential hypertension 06/19/2018 Emergency Emergency Medicine after 05/31/2018 Family History Medical History Relation Name Comments [...] Lot Implanted Type Area Manufactur er 05/20/2023 [id number] / N/A / 7DN Scr Low Profile 6.5x25mm [id number] Fracture/F Left: Hip LULU:ST - Sn/A ixation CARLOS EDUARDO Implanted: Qty: 1 on 08/19/2018 by Lorene Lozano MD 05/20/2023 [id number] / N/A / 7DN Scr Low Profile 6.5x25mm [id number] Fracture/F Left: Hip LULU:ST - Sn/A ixation CARLOS EDUARDO Implanted: Qty: 1 on 08/19/2018 by Lorene Lozano MD 06/18/2023 702-04-52E / N/A / [id number] Trident Ii Tri Clusterhole 52e Joints Left: Hip LULU 702-04-52e - Sn/A ORTHO CAP Implanted: Qty: 1 on 08/19/2018 by Lorene Boggs MD 07/01/2023 623-00-36E / N/A / [id number] Insrt Trident X3 0deg 36mm Joints Left: Hip LULU:ST 623-00-36e - Sn/A CARLOS EDUARDO Implanted: Qty: 1 on 08/19/2018 by Lorene Lozano MD 05/19/2023 6570-0-136 / N/A / [id number] Head Fem Ceramic V40 36mm Joints Left: Hip LULU:ST 6570-0-136 - Sn/A CARLOS EDUARDO Implanted: Qty: 1 on 08/19/2018 by Lorene Lozano MD 06/22/2023 [id number] / N/A / [id number] Hip Stem Accolade Ii 127d 5 - Sn/A Joints Left: Hip LULU:ST Implanted: Qty: 1 on 08/19/2018 by Lorene Khalil MD [facility] Procedures Comments Procedure Name Priority Date/Time Associated [...] QTC Calculatio n(Bazett) 426 ms P [place] 58 degrees R [place] 41 degrees T [place] 32 degrees Normal sinus rhythm Normal ECG [...] 06/19/2018 MIN 2 VIEWS 1:07 PM CDT after 05/31/2018 Results * RHYTHM STRIP - SCAN (08/25/2018 1:30 PM CDT) Narrative Performed At * TRANSFUSION SERVICE REPORT - SCAN (08/24/2018 5:50 PM CDT) Only the most recent of 2 results within the time period is included. Narrative Performed At * Prepare RBC (08/22/2018 3:26 PM CDT) Unit ABO O Pos [place] UNIT NUMBER [id number] [place] Status WORK IN PROGRESS [place] Blood Bank Product RED BLOOD CELLS [place] PRODUCT CODE [id number] SAFETRACE TX Unit ABO O Neg SAFETRACE TX UNIT NUMBER [id number] SAFETRACE TX Status WORK IN PROGRESS SAFETRACE TX Blood Bank Product RED BLOOD CELLS SAFETRACE [place] PRODUCT CODE [id number] SAFETRACE TX CROSSMATCH COMPATIBLE SAFETRACE TX CROSSMATCH COMPATIBLE SAFETRACE TX Specimen Performing Organization Address City/[facility] Centercode Phone Number [place] * CBC (Hemogram only) (08/22/2018 5:12 AM CDT) WBC 12.0 (H) 3.5 - 10.5 K/L [facility] RBC 3.57 (L) 4.63 - 6.08 M/L [facility] Hemoglobin 9.9 (L) 13.7 - 17.5 GM/DL [facility] Hematocrit 30.7 (L) 40.1 - 51.0 % [facility] MCV 86.0 79.0 - 92.2 fL [facility] MCH 27.7 25.7 - 32.2 pg [facility] MCHC 32.2 (L) 32.3 - 36.5 GM/DL [facility] RDW 13.4 11.6 - 14.4 % [facility] Platelets 263 150 - 450 K/CU MM [facility] MPV 9.5 9.4 - 12.4 fL [facility] nRBC 0 0 - 0 /100 WBC [facility] Specimen Blood Performing Organization Address City/[facility]/Zipcode Phone Number [facility] [address] [place] [address] [facility]ENTER * Manual Differential (08/21/2018 3:37 AM CDT) % Neutros 79 % [facility] % Lymphs 15 % [facility] % Monos 5 % [facility] % Atypical Lymphs 1 (H) 0 - 0 % [facility] # Neutros 9.24 (H) 1.78 - 5.38 K/ul [facility] # Lymphs 1.76 1.32 - 3.57 K/ul [facility] # Monos 0.59 0.30 - 0.82 K/uL [facility] # Atypical Lymphs 0.12 (H) 0.00 - 0.00 K/uL [facility] Total Counted 100 [facility] nRBC (manual) 2 (H) 0 - 0 /100 WBC [facility] WBC Morphology Normal [facility] Large Platelet Present [facility] Polychromasia 1+ few [facility] Hypochromia 1+ few [facility] Artifact Present [facility] Platelet Conc Adequate [facility] Specimen Blood Narrative Performed At Received comment: [facility] User comments: [facility] Slide comments: Performing Organization Address City/State/Zipcode Phone Number [facility] [address] [place] [address] MEDICAL [facility]ENTER * CBC with platelet count + automated diff (08/21/2018 3:37 AM CDT) Only the most recent of 3 results within the time period is included. WBC 11.7 (H) 3.5 - 10.5 K/L [facility] RBC 3.45 (L) 4.63 - 6.08 M/L [facility] Hemoglobin 9.5 (L) 13.7 - 17.5 GM/DL [facility] Hematocrit 29.8 (L) 40.1 - 51.0 % [facility] MCV 86.4 79.0 - 92.2 fL [facility] MCH 27.5 25.7 - 32.2 pg [facility] MCHC 31.9 (L) 32.3 - 36.5 GM/DL [facility] RDW 13.5 11.6 - 14.4 % [facility] Platelets 234 150 - 450 K/CU MM [facility] MPV 9.1 (L) 9.4 - 12.4 fL [facility] nRBC 0 0 - 0 /100 WBC [facility] Specimen Blood Performing Organization Address City/[facility] Centercode Phone Number [address] [address] [facility] * Basic Metabolic Panel (08/21/2018 3:37 AM CDT) Only the most recent of 3 results within the time period is included. Sodium 139 136 - 145 meq/L [facility] Potassium 4.1 3.5 - 5.1 meq/L [facility] Chloride 108 (H) 98 - 107 meq/L [facility] CO2 25 22 - 29 meq/L [facility] BUN 11 7 - 21 mg/dL [facility] Creatinine 0.78 0.57 - 1.25 mg/dL [facility] Glucose 86 70 - 105 mg/dL [facility] Calcium 9.3 8.4 - 10.2 mg/dL [facility] EGFR 132Comment: ESTIMATED GFR IS mL/min/1.[address] [facility] NOT ACCURATE CREATININE [facility] CLEARANCE IN PREDICTING GLOMERULAR FILTRATION RATE. ESTIMATED GFR IS NOT APPLICABLE FOR DIALYSIS PATIENTS. Specimen Blood Performing Organization Address City/State/Zipcode Phone Number [address] [place] [address] [facility] * Transthoracic echo result (08/20/2018 8:49 PM CDT) Ejection Fraction [facility] ECHO HEARTLAB [facility] Specimen Narrative Performed At Transthoracic Echocardiography Report (TTE) [facility] ECHO HEARTLAB Demographics [facility] Patient Name RACHAEL Vera Date of Study 08/20/2018 [id number] Male Visit Number [id number] Room Number Number Date of Birth1975Referring Physician Age43 year(s)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 Specimen Narrative Performed At FINAL REPORT [facility] TECHNIQUE: Frontal radiographs of the pelvis as [...] MD Report Verified Date/Time:08/19/2018 16:04:24 Reading Location: [facility] Radiology Reading Room Procedure Note Interface, External [...] Report Verified Date/Time: 08/19/2018 16:04:24 Reading Location: [facility] Radiology Reading Room Performing Organization Address City/State/Zipcode Phone Number [facility] * Tissue Exam (08/19/2018 1:24 PM CDT) Case Report Surgical Pathology [facility] Report [facility] Case: [id number] Authorizing Provider:Lorene Boggs, Collected: 08/19/2018 1324 MD Ordering Location: [facility] PERIOPERATIVE Received: 08/19/2018 1453 SERVICES Pathologist: Juan Carlos Isaac MD Specimen:Femoral Head,Left Hip DIAGNOSIS PART A LEFT FEMORAL HEAD, [facility] ARTHROPLASTY FOR FRACTURE: [facility] DEGENERATIVE, PARTIALLY NECROTIC CHANGES IN BONE AND CARTILAGE. REACTIVE SYNOVIAL TISSUE. Signing Pathologist Direct Phone Line: [phone] CPT Code(s) 17270, 17483 [facility] CLINICAL HISTORY Left hip fracture [facility] SPECIMEN SOURCE Left femoral head [facility] GROSS DESCRIPTION The specimen is received in a [facility] fluidless container labeled [facility] with patient's information labeled "left [...] submitted for decalcification. CG/pl MICROSCOPIC DESCRIPTION PERFORMED. [facility] Specimen Tissue - Femoral Head,Left Hip Performing Organization Address [facility]/Zipcode Phone Number [facility] [address] [place], [place] [id number] [phone] [place] [address] * Type and screen, automated (08/19/2018 4:43 AM CDT) ABO/RH AUTOMATED (BEAKER) O POSITIVE [facility] Ab Scrn NEGATIVE [facility] Specimen Blood Performing Organization Address [facility] Centercovt Phone Number [facility] [address] [place] [address] [facility] * ECG 12 lead (08/18/2018 6:04 PM CDT) Specimen Narrative Performed At Ventricular Rate 74 BPM [facility] Atrial Rate 74 BPM P-R Interval 114 ms QRS Duration 80 ms Q-T Interval 384 ms QTC Calculation(Bazett) 426 ms P [place] 58 degrees R [place] 41 degrees T [place] 32 degrees Normal sinus rhythm Normal ECG [...] ms QTC Calculation(Bazett) 426 ms P [place] 58 degrees R [place] 41 degrees T [place] 32 degrees Normal sinus rhythm Normal ECG When compared with ECG of 08-DEC-2015 07:36, No significant change was found Confirmed by Freida TERRELL MICHAEL ([id number]) on 08/18/2018 10:17:45 PM Performing Organization Address [facility] Centercode Phone Number [facility] * XR chest 1 view portable / bedside (08/18/2018 5:45 PM CDT) Specimen Narrative Performed At FINAL REPORT [facility] TECHNIQUE: Single view of the chest. COMPARISON: 02/03/2016 FINDINGS: The cardiac silhouette is within normal limits.Mediastinum is unremarkable. Lungs are clear.Osseous structures appear unremarkable. [place] project over the right neck presumably external to the patient. IMPRESSION: No acute cardiopulmonary disease. Signed: Shiraz Wong MD Report Verified Date/Time:08/18/2018 18:44:14 Reading Location: [facility] Reading Room Procedure Note Interface, External [...] Report Verified Date/Time: 08/18/2018 18:44:14 Reading Location: [facility] Mammo Reading Room Performing Organization Address City/[facility]/Zipcode Phone Number [facility] * PT/aPTT (08/18/2018 4:40 PM CDT) Protime 14.8 (H) 11.7 - 14.7 seconds [facility] INR 1.2 <=5.9 [facility] PTT 32.3 22.5 - 36.0 seconds [facility] Specimen Blood Narrative Performed At RECOMMENDED COUMADIN/WARFARIN INR THERAPY RANGES [facility] STANDARD DOSE: 2.0 - 3.0 Includes: PROPHYLAXIS for venous thrombosis, [facility] systemic embolization; TREATMENT for venous thrombosis and/or pulmonary embolus. HIGH RISK: Target INR is 2.5-3.5 for patients with mechanical heart valves. Performing Organization Address City/[facility]/Zipcode Phone Number [facility] [address] [place] [address] [facility] * CT abdomen/pelvis without iv contrast (08/18/2018 4:01 PM CDT) Specimen Narrative Performed At FINAL REPORT [facility] CT abdomen and pelvis without intravenous contrast. [...] MD Report Verified Date/Time:08/18/2018 16:12:06 Reading Location: [facility] Radiology Reading Room Procedure Note Interface, External [...] Report Verified Date/Time: 08/18/2018 16:12:06 Reading Location: [facility] Radiology Reading Room Performing Organization Address City/State/Zipcode Phone Number [facility] * Urinalysis w/Microscopic + Reflex to Culture (08/18/2018 3:15 PM CDT) Color, UA Yellow [facility] Clarity, UA Hazy [facility] Specific [place], UA 1.018 1.001 - 1.035 [facility] pH, UA 5.5 5.0 - 8.0 [facility] Protein, UA 20 mg/dL (A) Negative [facility] Glucose, UA Negative Negative [facility] Ketones, UA Trace (A) Negative [facility] Bilirubin, UA Negative Negative [facility] Blood, UA Negative Negative [facility] Nitrite, UA Negative Negative [facility] Leukocytes, UA Negative Negative [facility] Urobilinogen, UA 3.0 (H) 0.2 - 1.0 mg/dL [facility] RBC, UA 6 /HPF [facility] WBC, UA 10 /HPF [facility] Mucus Moderate [facility] Crystals, Urine Occasional [facility] Yeast Few [facility] Specimen Source [facility] Specimen Urine Performing Organization Address City/[facility]/Zipcode Phone Number [place] [phone] * Urine culture (08/18/2018 3:15 PM CDT) Result 10-19,000 col/mL [facility] Beta-hemolytic streptococcus [facility] group B, by serological grouping (A) Specimen Urine Performing Organization Address City/[facility] Centercode Phone Number [place] [phone] * XR DXA Bone Density Study (07/28/2018 9:42 AM CDT) Specimen Narrative Performed At FINAL REPORT [place] [facility] Bone mineral density study 07/28/2018. CLINICAL INDICATION: [...] MD Report Verified Date/Time:07/28/2018 10:46:13 Reading Location: [facility] Reading Room Procedure Note Interface, External [...] Report Verified Date/Time: 07/28/2018 10:46:13 Reading Location: [facility] Reading Room Performing Organization Address City/State/Zipcode Phone Number [facility] * XR shoulder complete 2 views min right (06/19/2018 1:12 PM CDT) Specimen Narrative Performed At FINAL REPORT [facility] TECHNIQUE: Four views of the right shoulder [...] MD Report Verified Date/Time:06/19/2018 13:27:48 Reading Location: [facility] Radiology Reading Room Procedure Note Interface, External [...] or dislocation in either shoulder. Signed: Mell aLw MD Report Verified Date/Time: 06/19/2018 13:27:48 Reading Location: [facility] Radiology Reading Room Performing Organization Address City/State/Zipcode Phone Number [facility] * XR shoulder [...] MD Report Verified Date/Time:06/19/2018 13:27:48 Reading Location: [facility] Radiology Reading Room Procedure Note Interface, External [...] Report Verified Date/Time: 06/19/2018 13:27:48 Reading Location: [facility] Radiology Reading Room Performing Organization Address City/State/Zipcode Phone Number [facility] after 05/31/2018 Insurance Payer Benefit Subscriber ID Type Phone Address Plan / Group MEDICAID - MEDICAID [facility] xxxxxxxxx Medicaid CARE COMM STAR Contracted PLAN Advance Directives For more information, please contact: [address] [address] Date Inactivated Comments Code Status Date Activated 08/22/2018 5:26 PM Full Code 08/18/2018 5:50 PM This code status was determined by: Patient 12/10/2015 5:17 PM Full Code 12/08/2015 1:29 PM This code status was determined by: Patient 06/05/2014 6:14 PM Full Code 05/28/2014 3:37 PM This code status was determined by: Patient
--- OUTSIDE RECORDS SUMMARY | 2019-06-01 06:23 | XMS REPORT | Clinical Summary ---
Author Author [facility] Organization [facility] Address Unknown Phone Unavailable Care Team Providers Care Rehabilitation Technician Name Role Phone PCP Unavailable Allergies [...] both hips 08/08/2018 Emergency Emergency Medicine after 05/31/2018 Family History Medical History Relation Name Comments Diabetes type II Mother Hypertension Mother Relation Name Status Comments Mother Social History Date Tobacco Use Types Packs/Day Years Used Current Every Day Smoker Cigarettes 0.1 5 Smokeless Tobacco: Never Used Tobacco Cessation: Ready to Quit: No; Counseling Given: Yes Comments: 1 pack per week Drinks/Week oz/Week Comments Alcohol Use No Sex Assigned at Date Recorded Not on file Industry Job Start Date Occupation Not on file Not on file Not on file Travel End Travel History Travel Start No recent travel history available. Last Filed Vital Signs Reading Time Taken Comments Vital Sign 161/103 08/08/2018 9:37 PM CDT Blood Pressure 65 08/08/2018 9:37 PM CDT Pulse 37.1 C (98.7 F) 08/08/2018 4:54 PM CDT Temperature 18 08/08/2018 9:37 PM CDT Respiratory Rate 100% 08/08/2018 9:37 PM CDT Oxygen Saturation - - Inhaled Oxygen Concentration - - Weight - - Height - - Body Mass Index Plan of Treatment Health Maintenance Due Date Last Done Comments IMM Influenza Seasonal 07/28/2019 Oct to December (>/=19 yrs) Procedures Comments Procedure Name Priority Date/Time Associated Diagnosis XRAY HIP UNILATERAL 2/3 STAT 08/08/2018 Left hip pain VIEWS 7:14 PM CDT after 05/31/2018 Results * XRAY HIP UNILATERAL 2/3 VIEWS (08/08/2018 7:14 PM CDT) Specimen Impressions Performed At IMPRESSION: SMS 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 Signed By: Carlyn Ogden MD, 08/08/2018 7:22 PM Narrative Performed At EXAM:XRAY HIP UNILATERAL 2/3 VIEWS [facility] DATE:08/08/2018 7:14 PM INDICATION:severe left hip [...] necrosis in both hip joints. Signed By: Cralyn Ogden MD, 08/08/2018 7:22 PM Performing Organization Address City/State/Zipcode Phone Number [facility] after 05/31/2018 Insurance Type Payer Benefit Subscriber ID Effective Phone Address Plan / Dates Group [facility] xxxxxxxxx 2012-P [phone] [address] [facility] [address] [place] [address]
[2019-06-01] MEDS ORDERED: CELECOXIB 200 MG CAP ONE (07:17)
[2019-06-01] MEDS ORDERED: DEXAMETHASONE SOD PHOS 10 MG/1 ML VIAL ONE (07:17)
[2019-06-01] MEDS ORDERED: GABAPENTIN 300 MG CAP ONE (07:17)
[2019-06-01] MEDS ORDERED: CEFAZOLIN SOD 1 GM/NS 50ML 100 ML IV ONE (07:18)
[2019-06-01] MEDS ORDERED: ROPIVACAINE 246.25 MG, EPINEPHRINE HCL 1:1000 1ML 0.5 MG, CLONIDINE HCL 0.08 MG, KETORO... INJ ONE ×5 (07:30)
[2019-06-01] MEDS ORDERED: MIDAZOLAM HCL 2 MG/2 ML VIAL ONE ×2 (08:33→16:57)
[2019-06-01] MEDS ORDERED: FENTANYL CITRATE/PF 100MCG/2 ML INJ ONE ×2 (08:33→16:57)
[2019-06-01] MEDS ORDERED: BUPIVACAINE 0.5%/EPI 30 ML SDV INJ ONE (08:34)
[2019-06-01] MEDS ORDERED: TRANEXAMIC ACID 1,000 MG/10 ML ML ONE (08:35)
[2019-06-01] MEDS ORDERED: BACITRACIN 50,000 UNIT VIAL ONE (08:35)
[2019-06-01] MEDS ORDERED: SODIUM CHLORIDE 0.9% 500ML 500 ML ONE (08:36)
[2019-06-01] MEDS ORDERED: VANCOMYCIN HCL 500 MG ONE (08:36)
[2019-06-01] MEDS ORDERED: ACETAMINOPHEN 1000 MG/100 ML 100 ML IV ONE (08:46)
[2019-06-01] MEDS: SODIUM CHLORIDE 0.9% 1000ML 1,000 ML IV SCH ×2 (10:54→20:54)
[2019-06-01] MEDS ORDERED: HYDROCODONE/APAP 5MG-325MG TAB PO PRN (11:00)
[2019-06-01] MEDS ORDERED: DOCUSATE SODIUM 100 MG CAP PO PRN (11:00)
[2019-06-01] MEDS ORDERED: ONDANSETRON HCL INJ 2MG/ML 2ML 2 MG/ML VIAL IV PRN (11:00)
[2019-06-01] MEDS ORDERED: KETOROLAC TROMETHAMINE 30 MG/ML VIAL IV PRN (11:00)
[2019-06-01] MEDS ORDERED: ACETAMINOPHEN 650 MG SUPP PR PRN (11:00)
[2019-06-01] MEDS ORDERED: DIPHENHYDRAMINE HCL INJ 50 MG/ML VIAL IM/IV PRN (11:00)
[2019-06-01] MEDS ORDERED: PROMETHAZINE HCL (IM) 25 MG/ML VIAL IM PRN (11:00)
[2019-06-01] MEDS ORDERED: HYDROCODONE/APAP 7.5MG-325MG 1 EA TAB PO PRN (11:00)
[2019-06-01] MEDS: ACETAMINOPHEN 1000 MG/100 ML IV SCH ×2 (12:00→17:19)
--- NOTE | 2019-06-01 12:38 | Diagnostic Imaging Report ---
EXAMINATION: SHOULDER LEFT 1 VIEW INDICATION: Postoperative COMPARISON: None FINDINGS: Single portable postoperative radiograph of the left shoulder demonstrates postoperative changes status post left shoulder arthroplasty. No acute fracture. Components are in anatomic alignment. Surgical skin sherrell in place. Minimal subcutaneous emphysema. The visualized portions of the left lung are clear. IMPRESSION: Anatomic alignment status post left shoulder arthroplasty. Signed by: Shashank Lazar MD on 06/01/2019 12:34 PM
--- NOTE | 2019-06-01 13:30 | NUR ---
PATIENT HAS VOIDED SINCE SURGERY.
--- NOTE | 2019-06-01 14:22 | NUR ---
RECEIVED PATIENT FROM RECOVERY. PATIENT A/O X3, EVEN RESPIRATIONS ON RA. BOWEL SOUNDS ACTIVE, NO EDEMA. LEFT SHOULDER DRESSING CLEAN, DRY, AND INTACT. SLING IN PLACE. RIGHT FA IV WITH IVF @ 100 CC/HR. IV INTACT AND PATENT. SCD's AND FABIOLA HOSE IN PLACE BILATERALLY. ORIENTED PATIENT TO ROOM AND CALL LIGHT. VITAL SIGNS STABLE. CALL LIGHT IN REACH WILL CONTINUE TO MONITOR PATIENT.
--- OUTSIDE RECORDS SUMMARY | 2019-06-01 14:32 | XMS REPORT | Clinical Summary ---
Author Author [facility] Organization [facility] Address Unknown Phone Unavailable Care Team Providers Care Extension Service Agent Name Role Phone PCP Unavailable Allergies No [...] necrosis in both hip joints. Signed By: Caryln Ogden MD, 08/08/2018 7:22 PM Narrative Performed At EXAM:XRAY HIP UNILATERAL 2/[address] [facility] DATE:08/08/2018 7:14 PM INDICATION:severe left hip [...] PM Performing Organization Address City/State/Zipcode Phone Number [facility] after 05/31/2018 Insurance Type Payer Benefit Subscriber ID Effective Phone Address Plan / Dates Group [facility] xxxxxxxxx 2012-P [phone] [facility] [address] [place] [address]
--- OUTSIDE RECORDS SUMMARY | 2019-06-01 14:33 | XMS REPORT | Clinical Summary ---
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 Name Role Phone Pcp, No PCP Unavailable [...] Lot Implanted Type Area Manufactur er 05/20/2023 [id number] / N/A / 7DN Scr Low Profile 6.5x25mm [id number] Fracture/F Left: Hip LULU:ST - Sn/A ixation CARLOS EDUARDO Implanted: Qty: 1 on 08/19/2018 by Lorene Lozano MD 05/20/2023 [id number] / N/A / 7DN Scr Low Profile 6.5x25mm [id number] Fracture/F Left: Hip LULU:ST - Sn/A ixation CARLOS EDUARDO Implanted: Qty: 1 on 08/19/2018 by Lorene Lozano MD 06/18/2023 702-04-52E / N/A / [id number] Trident Ii Tri Clusterhole 52e Joints Left: Hip LULU 702-04-52e - Sn/A ORTHO CAP Implanted: Qty: 1 on 08/19/2018 by Lorene Boggs MD 07/01/2023 623-00-36E / N/A / [id number] Insrt Trident X3 0deg 36mm Joints Left: Hip LULU:ST 623-00-36e - Sn/A CARLOS EDUARDO Implanted: Qty: 1 on 08/19/2018 by Lorene Lozano MD 05/19/2023 6570-0-136 / N/A / [id number] Head Fem Ceramic V40 36mm Joints Left: Hip LULU:ST 6570-0-136 - Sn/A CARLOS EDUARDO Implanted: Qty: 1 on 08/19/2018 by Lorene Lozano MD 06/22/2023 [id number] / N/A / [id number] Hip Stem Accolade Ii 127d 5 - Sn/A Joints Left: Hip LULU:ST Implanted: Qty: 1 on 08/19/2018 by Lornee Khalil MD [facility] [...] ms QTC Calculatio n(Bazett) 426 ms P Nixon 58 degrees R Nixon 41 degrees T Nixon 32 degrees Normal sinus rhythm Normal ECG [...] ABO O Pos SAFETRACE TX UNIT NUMBER [id number] SAFETRACE TX Status WORK IN PROGRESS SAFETRACE TX Blood Bank Product RED BLOOD CELLS SAFETRACE TX PRODUCT CODE [id number] SAFETRACE TX Unit ABO O Neg SAFETRACE TX UNIT NUMBER [id number] SAFETRACE TX Status WORK IN PROGRESS SAFETRACE TX Blood Bank Product RED BLOOD CELLS SAFETRACE TX PRODUCT CODE [id number] SAFETRACE TX CROSSMATCH COMPATIBLE SAFETRACE TX CROSSMATCH COMPATIBLE SAFETRACE TX Specimen Performing Organization Address City/[facility] Phone Number SAFETRACE [place] * CBC (Hemogram only) (08/22/2018 5:12 AM CDT) WBC 12.0 (H) 3.5 - 10.5 K/L [facility] RBC 3.57 (L) 4.63 - 6.08 M/L [facility] Hemoglobin 9.9 (L) 13.7 - 17.5 GM/DL [facility] Hematocrit 30.7 (L) 40.1 - 51.0 % [facility] MCV 86.0 79.0 - 92.2 fL [facility] MCH 27.7 25.7 - 32.2 pg [facility] MCHC 32.2 (L) 32.3 - 36.5 GM/DL [facility] RDW 13.4 11.6 - 14.4 % [facility] Platelets 263 150 - 450 K/CU MM [facility] MPV 9.5 9.4 - 12.4 fL [facility] nRBC 0 0 - 0 /100 WBC [facility] Specimen Blood Performing Organization Address City/[facility]/Zipcode Phone Number [facility] [address] [place] [address] MEDICAL CENTER * Manual Differential (08/21/2018 3:37 AM CDT) % Neutros 79 % [facility] % Lymphs 15 % [facility] % Monos 5 % [facility] % Atypical Lymphs 1 (H) 0 - 0 % [facility] # Neutros 9.24 (H) 1.78 - 5.38 K/ul [facility] # Lymphs 1.76 1.32 - 3.57 K/ul [facility] # Monos 0.59 0.30 - 0.82 K/uL [facility] # Atypical Lymphs 0.12 (H) 0.00 - 0.00 K/uL [facility] Total Counted 100 [facility] nRBC (manual) 2 (H) 0 - 0 /100 WBC [facility] WBC Morphology Normal [facility] Large Platelet Present [facility] Polychromasia 1+ few [facility] Hypochromia 1+ few [facility] Artifact Present [facility] Platelet Conc Adequate [facility] Specimen Blood Narrative Performed At Received comment: [facility] User comments: [facility] Slide comments: Performing Organization Address City/State/Zipcode Phone Number [facility] [address] [place] [address] MEDICAL [facility]ENTER * CBC with platelet count + automated diff (08/21/2018 3:37 AM CDT) Only the most recent of 3 results within the time period is included. WBC 11.7 (H) 3.5 - 10.5 K/L [facility] RBC 3.45 (L) 4.63 - 6.08 M/L [facility] Hemoglobin 9.5 (L) 13.7 - 17.5 GM/DL [facility] Hematocrit 29.8 (L) 40.1 - 51.0 % [facility] MCV 86.4 79.0 - 92.2 fL [facility] MCH 27.5 25.7 - 32.2 pg [facility] MCHC 31.9 (L) 32.3 - 36.5 GM/DL [facility] RDW 13.5 11.6 - 14.4 % [facility] Platelets 234 150 - 450 K/CU MM [facility] MPV 9.1 (L) 9.4 - 12.4 fL [facility] nRBC 0 0 - 0 /100 WBC [facility] Specimen Blood Performing Organization Address City/[facility] Hospitalcode Phone Number [address] [address] [facility] * Basic Metabolic Panel (08/21/2018 3:37 AM CDT) Only the most recent of 3 results within the time period is included. Sodium 139 136 - 145 meq/L [facility] Potassium 4.1 3.5 - 5.1 meq/L [facility] Chloride 108 (H) 98 - 107 meq/L [facility] CO2 25 22 - 29 meq/L [facility] BUN 11 7 - 21 mg/dL [facility] Creatinine 0.78 0.57 - 1.25 mg/dL [facility] Glucose 86 70 - 105 mg/dL [facility] Calcium 9.3 8.4 - 10.2 mg/dL [facility] EGFR 132Comment: ESTIMATED GFR IS mL/min/1.73 sq m [facility] NOT ACCURATE CREATININE [facility] CLEARANCE IN PREDICTING GLOMERULAR FILTRATION RATE. ESTIMATED GFR IS NOT APPLICABLE FOR DIALYSIS PATIENTS. Specimen Blood Performing Organization Address City/State/Zipcode Phone Number [address] [place] [address] [facility] * Transthoracic echo result (08/20/2018 8:49 PM CDT) Ejection Fraction [facility] ECHO HEARTLAB [facility] Specimen Narrative Performed At Transthoracic Echocardiography Report (TTE) [facility] ECHO [facility]ARTLAB Demographics [facility] Patient Name RACHAEL Vera Date of Study 08/20/2018 [id number] Male Visit Number [id number] Room Number Number Date of Birth1975Referring Physician Age43 year(s)Grain 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 Specimen Narrative Performed At FINAL REPORT [facility] TECHNIQUE: Frontal radiographs of the pelvis as [...] MD Report Verified Date/Time:08/19/2018 16:04:24 Reading Location: [facility] Radiology Reading Room Procedure Note Interface, [...] Report Verified Date/Time: 08/19/2018 16:04:24 Reading Location: [facility] Radiology Reading Room Performing Organization Address City/State/Zipcode Phone Number GE [facility] * Tissue Exam (08/19/2018 1:24 PM CDT) Case Report Surgical Pathology [facility] Report [facility] Case: [id number] Authorizing Provider:Lorene Boggs, Collected: 08/19/2018 1324 MD Ordering Location: [facility] PERIOPERATIVE Received: 08/19/2018 1453 SERVICES Pathologist: Juan Carlos Isaac MD Specimen:Femoral Head,Left Hip DIAGNOSIS PART A LEFT FEMORAL HEAD, [facility] ARTHROPLASTY FOR FRACTURE: [facility] DEGENERATIVE, PARTIALLY NECROTIC CHANGES IN BONE AND CARTILAGE. REACTIVE SYNOVIAL TISSUE. Signing Pathologist Direct Phone Line: [phone] CPT Code(s) 67909, [address]603 [facility] CLINICAL HISTORY Left hip fracture [facility] SPECIMEN SOURCE Left femoral head [facility] GROSS DESCRIPTION The specimen is received in a [facility] fluidless container labeled [facility] with patient's information labeled "left [...] submitted for decalcification. CG/pl MICROSCOPIC DESCRIPTION PERFORMED. [facility] Specimen Tissue - Femoral Head,Left Hip Performing Organization Address [facility]/Zipcode Phone Number [facility] [address], [place] [phone] [place] [address] * Type and screen, automated (08/19/2018 4:43 AM CDT) ABO/RH AUTOMATED (BEAKER) O POSITIVE [facility] Ab Scrn NEGATIVE [facility] Specimen Blood Performing Organization Address [facility] Hospitalcoar Phone Number [facility] [address] [place] [address] [facility] * ECG 12 lead (08/18/2018 6:04 PM CDT) Specimen Narrative Performed At Ventricular Rate 74 BPM [facility] Atrial Rate 74 BPM P-R Interval 114 ms QRS Duration 80 ms Q-T Interval 384 ms QTC Calculation(Bazett) 426 ms P Nixon 58 degrees R Nixon 41 degrees T Nixon 32 degrees Normal sinus rhythm Normal ECG [...] 384 ms QTC Calculation(Bazett) 426 ms P Nixon 58 degrees R Nixon 41 degrees T Nixon 32 degrees Normal sinus rhythm Normal ECG When compared with ECG of 08-DEC-2015 07:36, No significant change was found Confirmed by Freida TERRELL MICHAEL ([id number]) on 08/18/2018 10:17:45 PM Performing Organization Address [facility]code Phone Number GE [facility] * XR chest 1 view portable / bedside (08/18/2018 5:45 PM CDT) Specimen Narrative Performed At FINAL REPORT [facility] TECHNIQUE: Single view of the chest. COMPARISON: 02/03/2016 FINDINGS: The cardiac silhouette is within normal limits.Mediastinum is unremarkable. Lungs are clear.Osseous structures appear unremarkable. [place] project over the right neck presumably external to the patient. IMPRESSION: No acute cardiopulmonary disease. Signed: Shiraz Wong MD Report Verified Date/Time:08/18/2018 18:44:14 Reading Location: [facility] Reading Room Procedure Note Interface, External [...] Report Verified Date/Time: 08/18/2018 18:44:14 [facility] Mammo Reading Room Performing Organization Address City/[facility]/Zipcode Phone Number [facility] * PT/aPTT (08/18/2018 4:40 PM CDT) Protime 14.8 (H) 11.7 - 14.7 seconds [facility] INR 1.2 <=5.9 [facility] PTT 32.3 22.5 - 36.0 seconds [facility] Specimen Blood Narrative Performed At RECOMMENDED COUMADIN/WARFARIN INR THERAPY RANGES [facility] STANDARD DOSE: 2.0 - 3.0 Includes: PROPHYLAXIS for venous thrombosis, [facility] systemic embolization; TREATMENT for venous thrombosis and/or pulmonary embolus. HIGH RISK: Target INR is 2.5-3.5 for patients with mechanical heart valves. Performing Organization Address City/[facility]/Zipcode Phone Number [facility] [address] [place] [address] [facility] * CT abdomen/pelvis without iv contrast [...] MD Report Verified Date/Time:08/18/2018 16:12:06 Reading Location: [facility] Radiology Reading Room Procedure Note [...] Report Verified Date/Time: 08/18/2018 16:12:06 Reading Location: [facility] Radiology Reading Room Performing Organization Address City/State/Zipcode Phone Number [facility] * Urinalysis w/Microscopic + Reflex to Culture (08/18/2018 3:15 PM CDT) Color, UA Yellow [facility] Clarity, UA Hazy [facility] Specific [place], UA 1.018 1.001 - 1.035 [facility] pH, UA 5.5 5.0 - 8.0 [facility] Protein, UA 20 mg/dL (A) Negative [facility] Glucose, UA Negative Negative [facility] Ketones, UA Trace (A) Negative [facility] Bilirubin, UA Negative Negative [facility] Blood, UA Negative Negative [facility] Nitrite, UA Negative Negative [facility] Leukocytes, UA Negative Negative [facility] Urobilinogen, UA 3.0 (H) 0.2 - 1.0 mg/dL [facility] RBC, UA 6 /HPF [facility] WBC, UA 10 /HPF [facility] Mucus Moderate [facility] Crystals, Urine Occasional [facility] Yeast Few [facility] Specimen Source [facility] Specimen Urine Performing Organization Address City/[facility]/Zipcode Phone Number [place] [phone] * Urine culture (08/18/2018 3:15 PM CDT) Result 10-19,000 col/mL [facility] Beta-hemolytic streptococcus [facility] group B, by serological grouping (A) Specimen Urine Performing Organization Address City/[facility] Phone Number [place] [phone] * XR DXA Bone Density Study (07/28/2018 9:42 AM CDT) Specimen Narrative Performed At FINAL REPORT [facility] Bone mineral density study 07/28/2018. CLINICAL INDICATION: [...] MD Report Verified Date/Time:07/28/2018 10:46:13 Reading Location: [facility] Reading Room Procedure Note Interface, External [...] Report Verified Date/Time: 07/28/2018 10:46:13 Reading Location: [facility] Reading Room Performing Organization Address City/State/Zipcode Phone Number [facility] * XR shoulder complete 2 views min right (06/19/2018 1:12 PM CDT) Specimen Narrative Performed At FINAL REPORT [facility] TECHNIQUE: Four views of the right shoulder [...] MD Report Verified Date/Time:06/19/2018 13:27:48 Reading Location: [facility] Radiology Reading Room Procedure Note Interface, [...] Report Verified Date/Time: 06/19/2018 13:27:48 Reading Location: [facility] Radiology Reading Room Performing Organization Address [...] MD Report Verified Date/Time:06/19/2018 13:27:48 Reading Location: [facility] Radiology Reading Room Procedure Note Interface, [...] Report Verified Date/Time: 06/19/2018 13:27:48 Reading Location: [facility] Radiology Reading Room Performing Organization Address City/State/Zipcode Phone Number [facility] after 05/31/2018 Insurance Payer Benefit Subscriber ID Type Phone Address Plan / Group MEDICAID - MEDICAID [facility]IL[facility] xxxxxxxxx Medicaid CARE COMM STAR Contracted PLAN Advance Directives For more information, please contact: [address] [address] Date Inactivated Comments Code Status Date Activated 08/22/2018 5:26 PM Full Code 08/18/2018 5:50 PM This code status was determined by: Patient 12/10/2015 5:17 PM Full Code 12/08/2015 1:29 PM This code status was determined by: Patient 06/05/2014 6:14 PM Full Code 05/28/2014 3:37 PM This code status was determined by: Patient
[2019-06-01 14:53] VITALS: BP 159/98
[2019-06-01 14:56] VITALS: BP 159/98
[2019-06-01] MEDS ORDERED: LIDOCAINE 2%/ EPINEPHRINE 20ML MDV ONE (15:07)
[2019-06-01] MEDS ORDERED: MEPIVACAINE HCL 2% 20 ML VIAL ONE (15:07)
[2019-06-01] MEDS ORDERED: HYDROCODONE/APAP 10MG-325MG TAB PO PRN (16:45)
[2019-06-01] MEDS ORDERED: ALPRAZOLAM 2 MG PO PRN (16:45)
[2019-06-01] MEDS ORDERED: GLYCOPYRROLATE INJ 1MG/ 5 ML SYR ONE (16:52)
[2019-06-01] MEDS ORDERED: ROCURONIUM BROMIDE 10 MG/ML 5ML VIAL ONE (16:52)
[2019-06-01] MEDS ORDERED: ESMOLOL HCL 100MG/10ML 10 MG/ML VIAL ONE (16:52)
[2019-06-01] MEDS ORDERED: SEVOFLURANE INHAL SOLN 250 ML PEN BTL ONE (16:52)
[2019-06-01] MEDS ORDERED: LIDOCAINE HCL 2% JELLY 5 ML TUBE ONE (16:52)
[2019-06-01] MEDS ORDERED: PROPOFOL IV EMULSION 10 MG/ML 20 ML VIAL ONE (16:52)
[2019-06-01] MEDS ORDERED: HYDROCORTISONE SOD SUCCINATE 100 MG VIAL ONE (16:52)
[2019-06-01] MEDS ORDERED: ACETAMINOPHEN 1000 MG/100 ML IV ONE (16:52)
[2019-06-01] MEDS ORDERED: LIDOCAINE HCL 2% LOCAL INJ 5 ML SDV VIAL INJ ONE (16:52)
[2019-06-01] MEDS ORDERED: ONDANSETRON HCL INJ 2MG/ML 2ML 2 MG/ML VIAL ONE (16:52)
[2019-06-01] MEDS ORDERED: ALPRAZOLAM 1 MG TAB PO PRN (17:00)
[2019-06-01] MEDS ORDERED: CELECOXIB 100 MG CAP PO SCH (17:00)
[2019-06-01 17:19] VITALS: BP 136/81
[2019-06-01] MEDS: PREDNISONE 20 MG TAB PO SCH (17:19)
[2019-06-01] MEDS: CELECOXIB 200 MG CAP PO SCH (17:19)
[2019-06-01] MEDS: ASPIRIN 325 MG TAB PO SCH (17:19)
[2019-06-01] MEDS: CEFAZOLIN SOD 1 GM/NS 50ML 50 ML IV SCH (17:35)
--- NOTE | 2019-06-01 19:35 | Operative Report ---
DATE OF PROCEDURE: 06/01/2019 SURGEON: Jourdan Poon MD DRY CURER: Ky Dumont PA-C. PREOPERATIVE DIAGNOSIS: Avascular necrosis, left shoulder. POSTOPERATIVE DIAGNOSIS: Avascular necrosis, left shoulder. PROCEDURE: Left shoulder hemiarthroplasty. INDICATIONS: The patient is a 44-year-old gentleman, who has a history of lupus and has been on long-standing corticosteroids. He has severe avascular necrosis of his proximal humerus. He had similar findings on the right and did well with a right shoulder hemiarthroplasty. He would now like to have this done on his left shoulder. We have reviewed the risks and benefits. He states he understands and wishes to proceed. PROCEDURE IN DETAIL: The patient was taken to the operating room. He was given an interscalene block and prophylactic antibiotics in the holding area. He was placed under general anesthetic and positioned in the beach chair position. His left shoulder was prepped and draped in a sterile manner. A preoperative time-out was performed. A 10 mL of 0.5% Marcaine with epinephrine had been injected into the subcutaneous tissue. An incision was made in the axillary fold extending up to the coracoid process. Blunt dissection was carried down to identify the deltopectoral interval. The cephalic vein was retracted with the deltoid and protected throughout the case. The proximal portion of the pectoralis major was released. A self-retaining Medeiros Hunter retractor was placed under the conjoined tendon and the deltoid. The inferior leash of vessels over the anterior shoulder was ligated. The subscapularis and capsular complex were released from the inferior recess all the way up into the rotator interval. Biceps tenodesis was performed and the proximal biceps was released. The shoulder was gradually brought out into external rotation. An oscillating saw was used to resect what was left of the humeral head. This was only about 3 to 5 mm thick and was fragmented pieces of cartilage. The shoulder was thoroughly irrigated. The glenoid surface was reasonably well preserved. There were some degenerative changes of the labrum. A [employer] proximal humerus replacement system was used. The canal was broached to 12 mm. A size 12 body was trialed. Multiple different head sizes were used. A 48 mm x 18 mm humeral head was felt to provide appropriate joint fill and stability. The trial implants were removed. The shoulder was thoroughly irrigated with sterile saline and a spray mixture of polymyxin and vancomycin. The implant was impacted into place. The trunnion was cleaned. The head was seated onto the trunnion and a final reduction was performed. The capsular complex was repaired with interrupted #1 Ethibond. The rotator interval was repaired. The skin was then closed with subcuticular Vicryl and sherrell. A sterile bandage and an UltraSling were applied. The patient was extubated and transported to the recovery room in stable condition. Estimated blood loss was 50 mL. All needle and sponge counts were correct. Jourdan Poon MD DR/DRE /[id number]
--- NOTE | 2019-06-01 19:40 | Consultation ---
DATE OF CONSULTATION: 06/01/2019 Medical Consult REASON FOR CONSULTATION: Medical management. HISTORY OF PRESENT ILLNESS: This is a 44-year-old man, who today underwent successful left shoulder hemiarthroplasty performed by his orthopedic surgeon namely Dr. Jourdan Poon. This gentleman has a history of systemic lupus erythematosus, which was diagnosed in 2014. As a consequence of long-term prednisone use as well as his systemic lupus erythematosus, he has developed widespread osteonecrosis of the joints. In February 2019, he underwent right shoulder hemiarthroplasty, performed by Dr. Jourdan Poon. In November 2018, he underwent right total hip arthroplasty also performed by Dr. Jourdan Poon. The patient states that both of hips have been replaced actually. The patient states at this time his pain is well controlled. He voices no other complaints at this time. Blood work done on May 29, 2019, revealed hemoglobin 13.5 g/dL. White blood cell count 13,400 with 91% segmented neutrophils. The patient's platelet count was 264. REVIEW OF SYSTEMS: GENERAL: Weight is stable. No fever or chills. HEENT: No headaches. No vision changes. CARDIOVASCULAR/RESPIRATORY: No chest pain. No short of breath or cough. GASTROINTESTINAL: No nausea, vomiting, diarrhea, or constipation. GENITOURINARY: No dysuria, hematuria, or incontinence. NEUROMUSCULAR: He does have joint pain from his systemic lupus erythematosus. ALLERGIES: NO KNOWN DRUG ALLERGIES. PAST MEDICAL HISTORY: 1. Systemic lupus erythematosus, diagnosed formally in 2014. 2. Hypertensive heart disease. 3. Anemia secondary to chronic disease. 4. Widespread osteonecrosis. 5. GERD. 6. Anxiety disorder. FAMILY HISTORY: Uncle had systemic lupus erythematosus as well as hypertension. The patient has multiple family members of hypertension. SURGICAL HISTORY: 1. Left shoulder hemiarthroplasty on June 01 2019. 2. Right shoulder hemiarthroplasty in February 2019. 3. Total hip arthroplasty in November 2018. 4. Left total hip arthroplasty. MEDICATIONS: 1. Prednisone 20 mg b.i.d. 2. Carvedilol 25 mg daily. 3. Brownell 10/325 one pill up to 4 times daily as needed for pain. 4. Pantoprazole 40 mg daily. 5. Alprazolam 2 mg once daily as needed for anxiety. SOCIAL HISTORY: This man is single. He lives with his mother. He is unemployed, but receiving disability benefits. Smokes tobacco occasionally. Denies any alcohol use. PHYSICAL EXAMINATION: GENERAL: He is awake, alert, fluent, distress, pleasant, cooperative with exam. VITAL SIGNS: His height is 5 feet 6 inches, weight 158 pounds, and BMI 25. Blood pressure is 136/82, pulse is 82, respiratory rate 16, oxygen saturation is 97% on room air, and temperature 96.1. INTEGUMENT: Skin is warm and dry. No pallor, jaundice, or diaphoresis. HEENT: Anicteric sclerae. Moist mucous membrane. NECK: Supple. CARDIOVASCULAR: Regular rate, regular rhythm with S4 gallop. LUNGS: No rales. No rhonchi. ABDOMEN: Benign. EXTREMITIES: The left upper extremity is currently in a sling. No edema in legs. NEUROLOGIC: Intact. DIAGNOSES: 1. Status post left shoulder hemiarthroplasty. 2. Left humeral head avascular necrosis secondary to systemic lupus erythematosus. 3. Systemic lupus erythematosus. 4. Hypertensive heart disease. 5. Anemia secondary to chronic disease, now resolved correctly. PLAN: 1. Follow hemoglobin and hematocrit. 2. Pain control. 3. Blood pressure monitoring control. 4. Continue prednisone therapy. 5. Continue alprazolam for anxiety. 6. Encourage incentive spirometer use. I spent 45 minutes in the care of this patient. I would like to thank Dr. Jourdan Poon for this generous consult. MD YULIYA Garrison/DRE /[id number] MTDD
[2019-06-01 20:19] VITALS: BP 130/74
[2019-06-01] MEDS: HYDROCODONE/APAP 10MG-325MG TAB PO PRN (20:24)
[2019-06-01] MEDS ORDERED: ZOLPIDEM TARTRATE 5 MG TAB PO PRN (21:00)
[2019-06-01 22:24] VITALS: BP 130/74
[2019-06-01 23:59] VITALS: BP 160/84
[2019-06-02] MEDS: ACETAMINOPHEN 1000 MG/100 ML IV SCH ×2 (00:11→05:56)
[2019-06-02] MEDS: HYDROCODONE/APAP 10MG-325MG TAB PO PRN ×4 (00:26→12:21)
[2019-06-02] MEDS: CEFAZOLIN SOD 1 GM/NS 50ML 50 ML IV SCH ×2 (01:03→08:05)
[2019-06-02 04:00] VITALS: BP 169/90
[2019-06-02 06:07] LABS: BASOPHILS % 0.1 % (0.0-1.0); HEMATOCRIT 38.3 % (38.2-49.6); HEMOGLOBIN 12.2 g/dL (14.0-18.0); LYMPHOCYTES # (AUTO) 1.2 (1.0-3.2); LYMPHOCYTES % 5.5 % (18.0-39.1); MEAN CORPUSCULAR HEMOGLOBIN 26.8 pg (28-32); MEAN CORPUSCULAR HGB CONC 31.9 g/dL (31-35); MONOCYTES # (AUTO) 1.6 (0.2-0.8); MONOCYTES % 7.5 % (4.4-11.3); NEUTROPHILS # (AUTO) 18.9 (2.1-6.9); NEUTROPHILS % 86.3 % (38.7-80.0); PLATELET COUNT 218 x10e3/uL (140-360); RED BLOOD COUNT 4.56 x10e6/uL (4.3-5.7); RED CELL DISTRIBUTION WIDTH 15.2 % (11.7-14.4)
[2019-06-02 06:39] LABS: ALANINE AMINOTRANSFERASE 19 IU/L (0-55); ALBUMIN 3.2 g/dL (3.5-5.0); ALBUMIN/GLOBULIN RATIO 1.3 (0.8-2.0); ALKALINE PHOSPHATASE 66 IU/L (40-150); ANION GAP 12.4 mmol/L (8-16); BLOOD UREA NITROGEN 26 mg/dL (7-26); BUN/CREATININE RATIO 25 (6-25); CALCIUM 9.2 mg/dL (8.4-10.2); CARBON DIOXIDE 25 mmol/L (22-29); CHLORIDE 106 mmol/L (98-107); CREATININE, SERUM 1.04 mg/dL (0.72-1.25); EST GLOMERULAR FILTRATION RATE > 60 ML/MIN (60-); GLUCOSE 127 mg/dL (74-118); POTASSIUM 4.4 mmol/L (3.5-5.1); SODIUM 139 mmol/L (136-145)
--- NOTE | 2019-06-02 07:00 | NUR ---
Rcvd patient in report this am. Patient is asleep in bed at this time.
[2019-06-02 07:38] VITALS: BP 165/90
[2019-06-02 07:48] VITALS: BP 165/90
[2019-06-02] MEDS: ASPIRIN 325 MG TAB PO SCH (08:06)
[2019-06-02] MEDS: PREDNISONE 20 MG TAB PO SCH (08:06)
[2019-06-02] MEDS: CELECOXIB 200 MG CAP PO SCH (08:06)
[2019-06-02] MEDS ORDERED: CARVEDILOL 12.5 MG TAB PO SCH (09:00)
[2019-06-02] MEDS ORDERED: PANTOPRAZOLE SOD 40 MG TABEC PO SCH (09:00)
[2019-06-02] MEDS ORDERED: NON-FORMULARY MEDICATION (Carvedilol 25 MG) PO SCH (09:00)
--- NOTE | 2019-06-02 09:00 | NUR ---
Patient is AAOx3. Post op left shoulder repair. Left arm in sling. PRN pain meds given this am. Lung cornelius clear to auscultation. bowel sounds present x4 and active. No s/s of distress noted. Right forearm IV in place
--- NOTE | 2019-06-02 10:00 | NUR ---
Right forearm IV removed at this time d/y swelling. All medications completed. PRessure dressing applied
[2019-06-02] MEDS ORDERED: ACETAMINOPHEN 1000 MG/100 ML IV PRN (11:00)
[2019-06-02 12:04] VITALS: BP 159/88
--- NOTE | 2019-06-02 13:19 | NUR ---
Patient discharged from facility to home. Patient assisted out via staff. Reviewed all discharge paperwork, follow up appts. Patient has pain meds at home and informed to get aspirin over the counter.
== END 2019-06-02 13:19 | disposition home or self-care (01) ==
LOC: OR 06:18 → MED/SURG 14:21
PROVIDERS: ADMIT Specialist; ATTEND Specialist
DX: M87.112 Osteonecrosis due to drugs, left shoulder (principal); Z96.641 Presence of right artificial hip joint; M32.9 Systemic lupus erythematosus, unspecified; F17.200 Nicotine dependence, unspecified, uncomplicated; Z96.611 Presence of right artificial shoulder joint; I11.9 Hypertensive heart disease without heart failure; K21.9 Gastro-esophageal reflux disease without esophagitis; F41.9 Anxiety disorder, unspecified; D63.8 Anemia in other chronic diseases classified elsewhere
CPT/HCPCS: 23470; 36415 ×2; 73020; 80053; 85025 ×2; 86850; 86900; 86920; 93005; 97161; G0378 ×2; J0131 ×2; J0171; J0670; J0690 ×2; J1100; J1720; J1885; J2001 ×3; J2250; J2405; J2704; J2795; J3010; J3370; J3490; J7040; J7512 ×2; S0164